=== PATIENT | male | born 1975 | race Caucasian/White ===

== ENCOUNTER 2024-09-13 13:06 | Outpatient (CLI) | payer MEDICARE, MEDICAID, SELFPAY ==
[2024-09-13 13:09] LABS: Abs Immature Grans 0.02 10^3/uL (0.0-0.06); Absolute Basophil Count 0.04 10^3/uL (0.0-0.2); Absolute Eosinophil Count 0.06 10^3/uL (0.0-0.7); Absolute Lymphocyte Count 0.87 10^3/uL (1.2-3.4); Absolute Monocyte Count 0.53 10^3/uL (0.1-0.8); Absolute Neutrophil Count 3.88 10^3/uL (1.2-6.7); Basophils % 0.7 %; Eosinophils % 1.1 %; HCT 41.1 % (40.0-50.0); HGB 13.5 g/dL (13.5-17.5); Immature Grans % 0.4 %; Lymphocytes % 16.1 %; MCH 30.8 pg (27.0-33.0); MCHC 32.8 % (32.0-36.0); MCV 94 fL (80-95); MPV 12.6 fL (8.0-11.0); Monocytes % 9.8 %; Neutrophils % 71.9 %; RBC 4.38 10^6/uL (4.36-5.78); RDW 15.6 % (11.8-14.1); RDW-SD 53.6 fL
--- OUTSIDE RECORDS SUMMARY | 2024-09-13 13:22 | XMS_ITS ---
Author Organization Unknown Address [address] [place] [address] [phone] Phone Care Team Providers Care Cupola Man Name Role Phone GEORGE GORDON Registered Nurse Unavailable LEIF Rhoades Attending Unavailable [facility] Unavailable ROD Tariq Primary Unavailable UNLISTED PROVIDER - REQUESTED Xhandoff Un available Results PTT PARTIAL THROMBOPLASTIN T LUIS ALBERTO* - Collect Date/Time: 06/14/2022 13:30 [facility] ID: [id number] [address] [place] [address], [phone] LOINC: 82391-0 Test Value Unit Reference Range Code Code System Flag PTT 25 seconds L=24 H=32 16656-8 LOINC PT PROTHROMBIN TIME* - Colle ct Date/Time: 06/14/2022 13:30 [facility] ID: [id number] [address] [place] [address], [address] LOINC: 5902-2 Test Value Unit Reference Range Code Code System Flag PROTIME 10.0 seconds L=9.3 H=11.4 5902-2 LOINC INR 1.00 L=2.00 H=3.00 65390-9 LOINC L TROPONIN HIGH SENSITIVITY* - Collect Date/Time: 06/14/2022 13:30 [facility] ID: [id number] [address] [place] [address], [address] LOINC: 40077-1 Test Value Unit Reference Range Code Code System Flag TROPONIN HS 7.7 pg/mL L=0.0 H=60.4 Specimen seq. Random COMPREHENSIVE METABOLIC PANE L (CMP) - Collect Date/Time: 06/14/2022 13:30 [facility] ID: [id number] [address] [place], [place], [address] LOINC: 88667-5 Test Value Unit Reference Range Code Code System Flag GLUCOSE 103 mg/dL L=70 H=116 2345-7 LOINC BUN 16 mg/dL L=6 H=25 3094-0 LOINC CREATININE 1.44 mg/dL L=0.67 H=1.17 2160-0 LOINC H SODIUM SERUM 141 mmol/L L=136 H=145 2951-2 LOINC POTASSIUM SERUM 4.0 mmol/L L=3.4 H=5.2 2823-3 LOINC CHLORIDE SERUM 106 mmol/L L=96 H=110 2075-0 LOINC CARBON DIOXIDE (CO2) 27 mmol/L L=22 H=34 2028-9 LOINC ANION GAP 7.9 mmol/L 18849-1 LOINC CALCIUM SERUM 8.5 mg/dL L=8.2 H=10.2 61338-6 LOINC BILIRUBIN TOTAL 0.9 mg/dL L=0.0 H=1.3 1975-2 LOINC ALK. PHOS. 94 U/L L=46 H=116 6768-6 LOINC SGOT (AST) 26 U/L L=15 H=37 1920-8 LOINC SGPT (ALT) 37 U/L L=12 H=78 1742-6 LOINC TOTAL PROTEIN 7.1 gm/dL L=6.0 H=8.0 2885-2 LOINC ALBUMIN 3.5 gm/dL L=3.4 H=5.0 1751-7 LOINC AGE 47 years eGFR (non-Afr.Amer.) 52 mL/min 25977-6 [facility] eGFR (Afr-Faroese) 63 mL/min 45714-1 [facility] CBC W/ DIFFERENTIAL* - Colle ct Date/Time: 06/14/2022 13:30 [facility] ID: [id number] [address] [place], [place], [address] LOINC: 14309-0 Test Value Unit Reference Range Code Code System Flag WBC 7.25 th/cmm L=5.00 H=10.00 6690-2 LOINC NEUT % 70.5 % L=40.0 H=80.0 LYMPH % 17.9 % L=10.0 H=50.0 MONO % 9.7 % L=2.0 H=12.0 77600-2 LOINC EOS % 1.0 % L=0.0 H=8.0 BASO % 0.6 % L=0.0 H=3.0 IG % 0.3 % L=0.0 H=1.1 2514-8 LOINC NRBC % 0.0 % L=0.0 H=0.0 25900-5 LOINC NEUT abs count 5.1 th/cmm L=1.6 H=8.4 751-8 LOINC LYMPH abs count 1.3 th/cmm L=1.5 H=4.0 731-0 LOINC L MONO abs count 0.7 th/cmm L=0.2 H=1.0 742-7 LOINC EOS abs count 0.1 th/cmm L=0.0 H=0.5 711-2 LOINC BASO abs count 0.0 th/cmm L=0.0 H=0.2 704-7 LOINC IG abs count 0.0 th/cmm L=0.0 H=0.1 28877-5 LOINC NRBC abs count 0.0 mil/cmm L=0.0 H=0.0 40160-0 LOINC RBC 5.62 mil/cmm L=4.30 H=6.20 789-8 LOINC HEMOGLOBIN 15.6 gm/dL L=13.0 H=17.0 718-7 LOINC HEMATOCRIT 47 % L=45 H=52 4544-3 LOINC MCV 83 fL L=82 H=92 787-2 LOINC MCH 27.8 pg L=27.0 H=31.0 785-6 LOINC MCHC 33.3 % L=32.0 H=36.0 786-4 LOINC RDW-SD 43.6 fL L=39.0 H=49.0 788-0 LOINC PLATELET COUNT 115 th/cmm L=150 H=450 777-[address] ANGIOGRAPHY CHEST - Compl eted: 06/14/2022 14:50 LOINC: Radiation optimization:?? Al l CT scans at this facility use at least one of these dose optimization techniques: automated exposure control; mA and/or kV adjustment per patient size (includes targeted exams where dose is matched to clinical indication); or iterative reconstruction. CHEST CT FOR PULMONARY EMBOLISM: Comparison is 30 September 2021. The pulmonary arteries are well opacified with IV contrast and no emboli are identified. The aorta is normal in diameter. There are no pleural or pericardial effusions or evidence of adenopathy. The heart size is normal. No coronary artery calcifications are seen. Lungs appear clear. The visualized portions of the upper abdomen are unremarkable. Degenerative changes are noted in the spine with flowing osteophytes seen in the lower thoracic region. IMPRESSION: No evidence of pulmonary emboli or other acute abnormality. Dictated by: CEO GEOFFREY FOFANA MD Transcribed by: PHIL 06/17/2216:13 [id number] Electronically Reviewed and Signed By: GEOFFREY FOFANA MD 07/05/22 13:05 Copy for: 185 HEALTH INFORMATION MGMT DISCHARGED XR CHEST 2V PA AND LATERAL - Completed: 06/14/2022 13:41 LOINC: PA AND LATERAL CHEST: Comparison is 30 September 2021. The exam is limited by poor pulmonary inflation and leads overlying the chest. The heart size is within normal limits. The lungs appear clear. IMPRESSION: No acute abnormality. Dictated by: CEO GEOFFREY FOFANA MD Transcribed by: PHIL 06/17/2215:57 [id number] Electronically Reviewed and Signed By: GEOFFREY FOFANA MD 07/05/22 12:57 Copy for: 185 HEALTH INFORMATION MGMT DISCHARGED Social History Type Status Start Date End Date Code Code Syst em Smoking History Former smoker 7085637 SNOMED CT Sex Male Vital Signs Vital Sign Value Unit Atwood Value Atwood Unit Date/Time Recent/Initial? Code Code System Body Mass Index 37.87 kg/m2 06/14/2022 13:24 Initial 71950 -5 LOINC Systolic Blood Pressure 130 mm[Hg] 06/14/2022 15:27 Most Recent 8480- 6 INC Diastolic Blood Pressure 96 mm[Hg] 06/14/2022 15:27 Most Recent 8462- 4 LOINC Systolic Blood Pressure 136 mm[Hg] 06/14/2022 13:24 Initial 8480- 6 LOINC Diastolic Blood Pressure 100 mm[Hg] 06/14/2022 13:24 Initial 8462- 4 LOINC Body Surface Area 2.70 m2 06/14/2022 13:24 Initial 3140- 1 LOINC Height 190.500 0 cm 75.00 in 06/14/2022 13:24 Initial 8302- 2 INC O2 Saturation 98 % 2021 15:27 Most Recent 89588 -5 INC O2 Saturation 100 % 2021 13:24 Initial 86360 -5 LOINC Pulse 86.0 /min 06/14/2022 15:27 Most Recent 8867- 4 INC Pulse 81.0 /min 06/14/2022 13:24 Initial 8867- 4 LOINC Respiration 13 /min 06/14/20 15:27 Most Recent 9279- 1 INC Respiration 18 /min 06/14/20 13:24 Initial 9279- 1 INC Temperature 36.7 Cristy 98.1 F 06/14/20 13:24 Initial 8310- 5 INC Weight 137.44 kg 303.00 lbs 06/14/2022 13:24 Initial 31885 -7 [facility] Medications Medication Start Date End Date Route Frequency Dose Code Code System Medication Instructions Home Meds Eliquis 5MG Oral Tablet 10/01/2021 Unknown ORAL TWICE A DAY 5 MILLIGRAMS 1547643 RxNorm TAKE 5 MILLIGRAMS ORAL TWICE A DAY Somatuline Depot 120MG/0.5ML Subcutaneou s Solution 10/01/2021 Unknown SUBCUTAN EOUS 1 unit(s) 244272 RxNorm INJECT 1 EACH SUBCUTANEOUS Vitamin B12 1000MCG/1ML Intramuscul ar Solution 10/01/2021 Unknown INTRAMUS CULAR MONTHLY 1 unit(s) RxNorm INJECT 1 EACH INTRAMUSCULAR MONTHLY everolimus 5MG Oral Tablet 10/01/2021 Unknown ORAL every other day 5 MILLIGRAMS 857133 RxNorm TAKE 5 MILLIGRAMS ORAL every other day Assessment You had the following problems:PULMONARY EMBOLISMCARCINOID TUMORAKI - ACUTE KIDNEY INJURY Hospital Discharge Instructions Should you have any questions prior to discharge, please contact a member of your healthcare team. If you have left the hospital and have any questions, please contact your primary care physician. Reason For Referral No Data Found Problems Problem Start Date Resolved Date Status Code Code System PULMONARY EMBOLISM active 70819912 S NOMED-CT CARCINOID TUMOR active 255377164 SNOM ED-CT RAISA - ACUTE KIDNEY INJURY active 1466 9001 SNOMED-CT Allergies and Adverse Reactions Allergy Substance Reaction Severity Start Date Concern Status Co de Code System No Known Drug Allergies Active 215434150 SNOMED-CT Plan of Treatment MRI ABDOMEN W W/O CONTRAST 05/17/2024 CT ABDOMEN/PELVIS W/ CONTRAST 4 CT ABDOMEN/PELVIS W/ CONTRAST 3 SYMPTOMS 09/07/2021 Encounters Encounter Diagnosis Start Date Code Code Sys tem Pleurodynia 06/14/2022 SNOMED-CT Personal Care Team Section Performer Name Performer Role Active Date Inactive Da te
--- OUTSIDE RECORDS SUMMARY | 2024-09-13 13:22 | XMS_ITS ---
Author Organization Unknown Address [address] [place] [address] [phone] Phone Care Team Providers Care Launching Pad Mechanic Name Role Phone ROD RAJ Tariq Attending Unavailable Social History Type Status Start Date End Date Code Code Syst em Smoking History Former smoker 1164832 SNOMED CT Sex Male Medications Medication Start Date End Date Route Frequency Dose Code Code System Medication Instructions Home Meds Eliquis 5MG Oral Tablet 10/01/2021 Unknown ORAL TWICE A DAY 5 MILLIGRAMS 9531225 RxNorm TAKE 5 MILLIGRAMS ORAL TWICE A DAY Somatuline Depot 120MG/0.5ML Subcutaneou s Solution 10/01/2021 Unknown SUBCUTAN EOUS 1 unit(s) 451665 RxNorm INJECT 1 EACH SUBCUTANEOUS Vitamin B12 1000MCG/1ML Intramuscul ar Solution 10/01/2021 Unknown INTRAMUS CULAR MONTHLY 1 unit(s) RxNorm INJECT 1 EACH INTRAMUSCULAR MONTHLY everolimus 5MG Oral Tablet 10/01/2021 Unknown ORAL every other day 5 MILLIGRAMS 365339 RxNorm TAKE 5 MILLIGRAMS ORAL every other [...] Status Code Code System PULMONARY EMBOLISM active 78129896 S NOMED-CT CARCINOID TUMOR active 802199999 SNOM ED-CT RAISA - ACUTE KIDNEY INJURY active 1464 2165 SNOMED-CT Allergies and Adverse Reactions Allergy Substance Reaction Severity Start Date Concern Status Co de Code System No Known Drug Allergies Active 561199903 SNOMED-CT Plan of Treatment MRI ABDOMEN W W/O CONTRAST 05/17/2024 CT ABDOMEN/PELVIS W/ CONTRAST 05/14/[address] ABDOMEN/PELVIS W/ CONTRAST 3 SYMPTOMS 09/07/2021 Encounters Encounter Diagnosis Start Date Code Code Sys tem Aftercare 02/04/2022 [id number] SNOMED-CT Personal Care Team Section Performer Name Performer Role Active Date Inactive Da te
--- OUTSIDE RECORDS SUMMARY | 2024-09-13 13:22 | XMS_ITS ---
Author Organization Unknown Address [address] [place] [address] [phone] Phone Care Team Providers Care Picture Enlarger Name Role Phone SHAQ Amezcua Attending Unavailable ROD Tariq Primary Unavailable Results CT ABD PELVIS W IV AND ORAL CONTRAST* - Completed: 04/14/2023 13:08 LOINC: [facility] [place], [place] [address] PACS HOT ROLLER REPORT Patient Name: MERY MARCH MRN: Sex: : Age: [id number] M [id number] Account: Accession: Admit: StayType: [id number] 04/14/2023 O/P Ordered: Order ID: Submitted: Ordering Provider: 04/14/2023 08:16 [id number] NLS [place] NEW Completed: Technologist: Resulted: 04/14/2023 13:08 TXC 04/14/2023 14:50 Study Description: CT ABD PELVIS W IV AND ORAL CONTRAST* Reason for Study: LIVER CANCER Technique: Imaging Protocol: Axial computed tomography images with coronal and sagittal reformatted images were created and reviewed. Contrast Material: Intravenous: 100 mL Omnipaque 350 Comparison: CT abdomen pelvis dated 03/15/2015 FINDINGS: The lung bases are clear. Liver: 96 mm area of hypoenhancement with surrounding rind of peripheral hyperenhancement in the right hepatic lobe. 30 mm enhancing lesion in segment 8/4 (series 3 image 25) becomes isointense on delayed images. 25 mm enhancing lesion in the anterior left hepatic lobe (series 3 image 40) becomes isointense on delayed images. 14 mm enhancing lesion in segment 5 (3 image 46) becomes isointense on delayed images. The gallbladder is surgically absent. The pancreas is unremarkable. Splenomegaly, 14.7 cm. The adrenals are unremarkable. The bilateral kidneys are unremarkable. The urinary bladder is unremarkable. Normal caliber aorta. The portal vein is patent. Adjacent enlarged mesenteric lymph nodes measuring 18 and 17 mm short axis (series 4 image 85). Additional prominent mesenteric and retroperitoneal lymph nodes are present. Increased attenuation of the central mesentery. No bowel obstruction or bowel wall thickening. Anastomotic sutures in the right lower quadrant. Evidence of prior ventral abdominal wall hernia repair. Small fat-containing left inguinal hernia. Trace free fluid in the pelvis. Small soft tissue attenuating nodules within the subcutaneous fat of the lower back. Multilevel degenerative changes of the spine. No aggressive osseous lesions. Chronic compression deformities of the L1 and L3 vertebral bodies. IMPRESSION: Multiple hepatic lesions and enlarged mesenteric lymph nodes. Correlation with outside imaging is recommended to assess change (only available comparison study was from 2014). Radiation Optimization: All CT scans at this facility use at least one of these dose optimization techniques: automated exposure control; mA and/or kV adjustment per patient size (includes targeted exams where dose is matched to clinical indication); or iterative reconstruction. Report Digitally Signed by Sheldon Love on 04/14/2023 02:50 PM EDT Social History Type Status Start Date End Date Code Code Syst em Smoking History Former smoker 1997238 SNOMED CT Sex Male Medications Medication Start Date End Date Route Frequency Dose Code Code System Medication Instructions Home Meds Eliquis 5MG Oral Tablet 10/01/2021 Unknown ORAL TWICE A DAY 5 MILLIGRAMS 0752387 RxNorm TAKE 5 MILLIGRAMS ORAL TWICE A DAY Somatuline Depot 120MG/0.5ML Subcutaneou s Solution 10/01/2021 Unknown SUBCUTAN EOUS 1 unit(s) 072303 RxNorm INJECT 1 EACH SUBCUTANEOUS Vitamin B12 1000MCG/1ML Intramuscul ar Solution 10/01/2021 Unknown INTRAMUS CULAR MONTHLY 1 unit(s) RxNorm INJECT 1 EACH INTRAMUSCULAR MONTHLY everolimus 5MG Oral Tablet 10/01/2021 Unknown ORAL every other day 5 MILLIGRAMS 962431 RxNorm TAKE 5 MILLIGRAMS ORAL every other [...] Status Code Code System PULMONARY EMBOLISM active 07346764 S NOMED-CT CARCINOID TUMOR active 622137170 SN ED-CT RAISA - ACUTE KIDNEY INJURY active 1466 9004 SNOMED-CT Allergies and Adverse Reactions Allergy Substance Reaction Severity Start Date Concern Status Co de Code System No Known Drug Allergies Active 434381215 SNOMED-CT Plan of Treatment MRI ABDOMEN W W/O CONTRAST 05/17/2024 CT ABDOMEN/PELVIS W/ CONTRAST 4 CT ABDOMEN/PELVIS W/ CONTRAST 3 SYMPTOMS 09/07/2021 Encounters Encounter Diagnosis Start Date Code Code 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
--- OUTSIDE RECORDS SUMMARY | 2024-09-13 13:22 | XMS_ITS ---
Author Organization Unknown Address [address] [place] [address] [phone] Phone Care Team Providers Care Deaf/Hard Of Hearing Specialist Name Role Phone ROD RAJ Tariq Attending Unavailable Social History Type Status Start Date End Date Code Code Syst em Smoking History Former smoker 4780717 SNOMED CT Sex Male Medications Medication Start Date End Date Route Frequency Dose Code Code System Medication Instructions Home Meds Eliquis 5MG Oral Tablet 10/01/2021 Unknown ORAL TWICE A DAY 5 MILLIGRAMS 9631479 RxNorm TAKE 5 MILLIGRAMS ORAL TWICE A DAY Somatuline Depot 120MG/0.5ML Subcutaneou s Solution 10/01/2021 Unknown SUBCUTAN EOUS 1 unit(s) 631006 RxNorm INJECT 1 EACH SUBCUTANEOUS Vitamin B12 1000MCG/1ML Intramuscul ar Solution 10/01/2021 Unknown INTRAMUS CULAR MONTHLY 1 unit(s) RxNorm INJECT 1 EACH INTRAMUSCULAR MONTHLY everolimus 5MG Oral Tablet 10/01/2021 Unknown ORAL every other day 5 MILLIGRAMS 780430 RxNorm TAKE 5 MILLIGRAMS ORAL every other [...] Status Code Code System PULMONARY EMBOLISM active 04794268 S NOMED-CT CARCINOID TUMOR active 647681894 SNOM ED-CT RAISA - ACUTE KIDNEY INJURY active 1466 3111 SNOMED-CT Allergies and Adverse Reactions Allergy Substance Reaction Severity Start Date Concern Status Co de Code System No Known Drug Allergies Active 236836700 SNOMED-CT Plan of Treatment MRI ABDOMEN W W/O CONTRAST 05/17/2024 CT ABDOMEN/PELVIS W/ CONTRAST 05/14/[address] ABDOMEN/PELVIS W/ CONTRAST 3 SYMPTOMS 09/07/2021 Encounters Encounter Diagnosis Start Date Code Code Sys tem Encounter for other specified aftercare 07/29/2022 SNOMED-CT Personal Care Team Section Performer Name Performer Role Active Date Inactive Da te
--- OUTSIDE RECORDS SUMMARY | 2024-09-13 13:22 | XMS_ITS ---
Author Organization Unknown Address [address] [place] [address] [phone] Phone Care Team Providers Care Marine Cargo Inspector Name Role Phone SHAQ Amezcua Attending Unavailable ROD Tariq Primary Unavailable Results CBC W/ DIFFERENTIAL* - Colle ct Date/Time: 08/10/2023 07:51 [facility] ID: [id number] [address] [place], [place], [address] LOINC: 25960-4 Test Value Unit Reference Range Code Code System Flag WBC 5.71 th/cmm L=5.00 H=10.00 6690-2 LOINC NEUT % 67.2 % L=40.0 H=80.0 LYMPH % 18.9 % L=10.0 H=50.0 MONO % 11.6 % L=2.0 H=12.0 45954-9 LOINC EOS % 1.2 % L=0.0 H=8.0 BASO % 0.7 % L=0.0 H=3.0 IG % 0.4 % L=0.0 H=1.1 2514-8 LOINC NRBC % 0.0 % L=0.0 H=0.0 65904-6 LOINC NEUT abs count 3.8 th/cmm L=1.6 H=8.4 751-8 LOINC LYMPH abs count 1.1 th/cmm L=1.5 H=4.0 731-0 LOINC L MONO abs count 0.7 th/cmm L=0.2 H=1.0 742-7 LOINC EOS abs count 0.1 th/cmm L=0.0 H=0.5 711-2 LOINC BASO abs count 0.0 th/cmm L=0.0 H=0.2 704-7 LOINC IG abs count 0.0 th/cmm L=0.0 H=0.1 33563-6 LOINC NRBC abs count 0.0 mil/cmm L=0.0 H=0.0 16695-9 LOINC RBC 5.13 mil/cmm L=4.30 H=6.20 789-8 LOINC HEMOGLOBIN 14.5 gm/dL L=13.0 H=17.0 718-7 LOINC HEMATOCRIT 46 % L=45 H=52 4544-3 LOINC MCV 89 fL L=82 H=92 787-2 LOINC MCH 28.3 pg L=27.0 H=31.0 785-6 LOINC MCHC 31.9 % L=32.0 H=36.0 786-4 LOINC L RDW-SD 53.1 fL L=39.0 H=49.0 788-0 LOINC H PLATELET COUNT 89 th/cmm L=150 H=450 777-3 LOINC L Vaccuol neutr 1+ Social History Type Status Start Date End Date Code Code Syst em Smoking History Former smoker 6540437 SNOMED CT Sex Male Medications Medication Start Date End Date Route Frequency Dose Code Code System Medication Instructions Home Meds Eliquis 5MG Oral Tablet 10/01/2021 Unknown ORAL TWICE A DAY 5 MILLIGRAMS 3821374 RxNorm TAKE 5 MILLIGRAMS ORAL TWICE A DAY Somatuline Depot 120MG/0.5ML Subcutaneou s Solution 10/01/2021 Unknown SUBCUTAN EOUS 1 unit(s) 687484 RxNorm INJECT 1 EACH SUBCUTANEOUS Vitamin B12 1000MCG/1ML Intramuscul ar Solution 10/01/2021 Unknown INTRAMUS CULAR MONTHLY 1 unit(s) RxNorm INJECT 1 EACH INTRAMUSCULAR MONTHLY everolimus 5MG Oral Tablet 10/01/2021 Unknown ORAL every other day 5 MILLIGRAMS 198214 RxNorm TAKE 5 MILLIGRAMS ORAL every other [...] Status Code Code System PULMONARY EMBOLISM active 65916700 S NOMED-CT CARCINOID TUMOR active 773189304 SNOM ED-CT RAISA - ACUTE KIDNEY INJURY active 4604 4416 SNOMED-CT Allergies and Adverse Reactions Allergy Substance Reaction Severity Start Date Concern Status Co de Code System No Known Drug Allergies Active 468258121 SNOMED-CT Plan of Treatment MRI ABDOMEN W W/O CONTRAST 05/17/2024 CT ABDOMEN/PELVIS W/ CONTRAST 4 CT ABDOMEN/PELVIS W/ CONTRAST 3 SYMPTOMS 09/07/2021 Encounters Encounter Diagnosis Start Date Code Code Sys tem Metastatic carcinoid tumor 08/10/2023 360065303 S NOMED-CT Personal Care Team Section Performer Name Performer Role Active Date Inactive Da te
--- OUTSIDE RECORDS SUMMARY | 2024-09-13 13:22 | XMS_ITS ---
Author Organization Unknown Address [address] [place] [address] [phone] Phone Care Team Providers Care Sanitation Worker Cleaning Equipment Name Role Phone ROD Tariq Attending Unavailable Social History Type Status Start Date End Date Code Code Syst em Smoking History Former smoker 5666748 SNOMED CT Sex Male Medications Medication Start Date End Date Route Frequency Dose Code Code System Medication Instructions Home Meds Eliquis 5MG Oral Tablet 10/01/2021 Unknown ORAL TWICE A DAY 5 MILLIGRAMS 3377624 RxNorm TAKE 5 MILLIGRAMS ORAL TWICE A DAY Somatuline Depot 120MG/0.5ML Subcutaneou s Solution 10/01/2021 Unknown SUBCUTAN EOUS 1 unit(s) 061537 RxNorm INJECT 1 EACH SUBCUTANEOUS Vitamin B12 1000MCG/1ML Intramuscul ar Solution 10/01/2021 Unknown INTRAMUS CULAR MONTHLY 1 unit(s) RxNorm INJECT 1 EACH INTRAMUSCULAR MONTHLY everolimus 5MG Oral Tablet 10/01/2021 Unknown ORAL every other day 5 MILLIGRAMS 787901 RxNorm TAKE 5 MILLIGRAMS ORAL every other [...] Status Code Code System PULMONARY EMBOLISM active 26580452 S NOMED-CT CARCINOID TUMOR active 739548551 SNOM ED-CT RAISA - ACUTE KIDNEY INJURY active 1064 8225 SNOMED-CT Allergies and Adverse Reactions Allergy Substance Reaction Severity Start Date Concern Status Co de Code System No Known Drug Allergies Active 439272529 SNOMED-CT Plan of Treatment MRI ABDOMEN W W/O CONTRAST 05/17/2024 CT ABDOMEN/PELVIS W/ CONTRAST 4 CT ABDOMEN/PELVIS W/ CONTRAST 3 SYMPTOMS 09/07/2021 Encounters Encounter Diagnosis Start Date Code Code Sys tem Encounter for other specified aftercare 05/06/2022 SNOMED-CT Personal Care Team Section Performer Name Performer Role Active Date Inactive Da te
--- OUTSIDE RECORDS SUMMARY | 2024-09-13 13:22 | XMS_ITS ---
Author Organization Unknown Address [address] [place] [address] [phone] Phone Care Team Providers Care Rn Employee Health Name Role Phone ROD RAJ Tariq Attending Unavailable Social History Type Status Start Date End Date Code Code Syst em Smoking History Former smoker 4656398 SNOMED CT Sex Male Medications Medication Start Date End Date Route Frequency Dose Code Code System Medication Instructions Home Meds Eliquis 5MG Oral Tablet 10/01/2021 Unknown ORAL TWICE A DAY 5 MILLIGRAMS 5361223 RxNorm TAKE 5 MILLIGRAMS ORAL TWICE A DAY Somatuline Depot 120MG/0.5ML Subcutaneou s Solution 10/01/2021 Unknown SUBCUTAN EOUS 1 unit(s) 563593 RxNorm INJECT 1 EACH SUBCUTANEOUS Vitamin B12 1000MCG/1ML Intramuscul ar Solution 10/01/2021 Unknown INTRAMUS CULAR MONTHLY 1 unit(s) RxNorm INJECT 1 EACH INTRAMUSCULAR MONTHLY everolimus 5MG Oral Tablet 10/01/2021 Unknown ORAL every other day 5 MILLIGRAMS 342018 RxNorm TAKE 5 MILLIGRAMS ORAL every other [...] Status Code Code System PULMONARY EMBOLISM active 28844098 S NOMED-CT CARCINOID TUMOR active 191993759 SNOM ED-CT RAISA - ACUTE KIDNEY INJURY active 1466 4280 SNOMED-CT Allergies and Adverse Reactions Allergy Substance Reaction Severity Start Date Concern Status Co de Code System No Known Drug Allergies Active 403252931 SNOMED-CT Plan of Treatment MRI ABDOMEN W W/O CONTRAST 05/17/2024 CT ABDOMEN/PELVIS W/ CONTRAST 05/14/[address] ABDOMEN/PELVIS W/ CONTRAST 3 SYMPTOMS 09/07/2021 Encounters Encounter Diagnosis Start Date Code Code Sys tem Encounter for other specified aftercare 04/28/2023 SNOMED-CT Personal Care Team Section Performer Name Performer Role Active Date Inactive Da te
--- OUTSIDE RECORDS SUMMARY | 2024-09-13 13:22 | XMS_ITS ---
Author Organization Unknown Address [address] [place] [phone] Phone Care Team Providers Care Informatics Manager Name Role Phone SHAQ Amezcua Attending Unavailable ROD Tariq Primary Unavailable Results COMPREHENSIVE METABOLIC PANE L (CMP) - Collect Date/Time: 10/05/2023 07:57 [facility] ID: [id number] [address] [place], [place], [address] LOINC: 43558-2 Test Value Unit Reference Range Code Code System Flag GLUCOSE 94 mg/dL L=70 H=116 2345-7 LOINC BUN 18 mg/dL L=6 H=25 3094-0 LOINC CREATININE 1.19 mg/dL L=0.67 H=1.17 2160-0 LOINC H SODIUM SERUM 139 mmol/L L=136 H=145 2951-2 LOINC POTASSIUM SERUM 3.5 mmol/L L=3.4 H=5.2 2823-3 LOINC CHLORIDE SERUM 104 mmol/L L=96 H=110 2075-0 LOINC CARBON DIOXIDE (CO2) 24 mmol/L L=22 H=34 2028-9 LOINC ANION GAP 10.9 mmol/L 83563-7 LOINC CALCIUM SERUM 9.0 mg/dL L=8.2 H=10.2 92730-4 LOINC BILIRUBIN TOTAL 1.9 mg/dL L=0.0 H=1.3 1975-2 LOINC H ALK. PHOS. 163 U/L L=46 H=116 6768-6 LOINC H SGOT (AST) 19 U/L L=15 H=37 1920-8 LOINC SGPT (ALT) 16 U/L L=12 H=78 1742-6 LOINC TOTAL PROTEIN 8.2 gm/dL L=6.0 H=8.0 2885-2 LOINC H ALBUMIN 3.7 gm/dL L=3.4 H=5.0 1751-7 LOINC AGE 48 years eGFR (non-Afr.Amer.) 65 mL/min 81988-3 LOINC eGFR (Afr-Canadian) 78 mL/min 39476-1 LOINC CBC W/ DIFFERENTIAL* - Colle ct Date/Time: 10/05/2023 07:57 [facility] ID: [id number] [address], [place], [address] LOINC: 97577-2 Test Value Unit Reference Range Code Code System Flag WBC 5.77 th/cmm L=5.00 H=10.00 6690-2 LOINC NEUT % 67.3 % L=40.0 H=80.0 LYMPH % 16.8 % L=10.0 H=50.0 MONO % 13.7 % L=2.0 H=12.0 07397-1 LOINC H EOS % 1.2 % L=0.0 H=8.0 BASO % 0.7 % L=0.0 H=3.0 IG % 0.3 % L=0.0 H=1.1 2514-8 LOINC NRBC % 0.0 % L=0.0 H=0.0 41496-1 LOINC NEUT abs count 3.9 th/cmm L=1.6 H=8.4 751-8 LOINC LYMPH abs count 1.0 th/cmm L=1.5 H=4.0 731-0 LOINC L MONO abs count 0.8 th/cmm L=0.2 H=1.0 742-7 LOINC EOS abs count 0.1 th/cmm L=0.0 H=0.5 711-2 LOINC BASO abs count 0.0 th/cmm L=0.0 H=0.2 704-7 LOINC IG abs count 0.0 th/cmm L=0.0 H=0.1 04847-7 LOINC NRBC abs count 0.0 mil/cmm L=0.0 H=0.0 40208-9 LOINC RBC 4.67 mil/cmm L=4.30 H=6.20 789-8 LOINC HEMOGLOBIN 14.2 gm/dL L=13.0 H=17.0 718-7 LOINC HEMATOCRIT 42 % L=45 H=52 4544-3 LOINC L MCV 90 fL L=82 H=92 787-2 LOINC MCH 30.4 pg L=27.0 H=31.0 785-6 LOINC MCHC 33.9 % L=32.0 H=36.0 786-4 LOINC RDW-SD 51.8 fL L=39.0 H=49.0 788-0 LOINC H PLATELET COUNT 79 th/cmm L=150 H=450 777-3 LOINC L Giant plts present Social History Type Status Start Date End Date Code Code Syst em Smoking History Former smoker [id number] SNOMED CT Sex Male Medications Medication Start Date End Date Route Frequency Dose Code Code System Medication Instructions Home Meds Eliquis 5MG Oral Tablet 10/01/2021 Unknown ORAL TWICE A DAY 5 MILLIGRAMS 1146195 RxNorm TAKE 5 MILLIGRAMS ORAL TWICE A DAY Somatuline Depot 120MG/0.5ML Subcutaneou s Solution 10/01/2021 Unknown SUBCUTAN EOUS 1 unit(s) 499632 RxNorm INJECT 1 EACH SUBCUTANEOUS Vitamin B12 1000MCG/1ML Intramuscul ar Solution 10/01/2021 Unknown INTRAMUS CULAR MONTHLY 1 unit(s) RxNorm INJECT 1 EACH INTRAMUSCULAR MONTHLY everolimus 5MG Oral Tablet 10/01/2021 Unknown ORAL every other day 5 MILLIGRAMS 185409 RxNorm TAKE 5 MILLIGRAMS ORAL every other [...] Status Code Code System PULMONARY EMBOLISM active 22698266 S NOMED-CT CARCINOID TUMOR active 200280933 SNOM ED-CT RAISA - ACUTE KIDNEY INJURY active 0994 9200 SNOMED-CT Allergies and Adverse Reactions Allergy Substance Reaction Severity Start Date Concern Status Co de Code System No Known Drug Allergies Active 986796359 SNOMED-CT Plan of Treatment MRI ABDOMEN W W/O CONTRAST 05/17/2024 CT ABDOMEN/PELVIS W/ CONTRAST 4 CT ABDOMEN/PELVIS W/ CONTRAST 3 SYMPTOMS 09/07/2021 Encounters Encounter Diagnosis Start Date Code Code Sys tem 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
--- OUTSIDE RECORDS SUMMARY | 2024-09-13 13:22 | XMS_ITS ---
Author Organization Unknown Address [address] [place] [address] [phone] Phone Care Team Providers Care Accounting Advisory Services Manager Name Role Phone ROD RAJ Tariq Attending Unavailable Social History Type Status Start Date End Date Code Code Syst em Smoking History Former smoker 2981182 SNOMED CT Sex Male Medications Medication Start Date End Date Route Frequency Dose Code Code System Medication Instructions Home Meds Eliquis 5MG Oral Tablet 10/01/2021 Unknown ORAL TWICE A DAY 5 MILLIGRAMS 4871910 RxNorm TAKE 5 MILLIGRAMS ORAL TWICE A DAY Somatuline Depot 120MG/0.5ML Subcutaneou s Solution 10/01/2021 Unknown SUBCUTAN EOUS 1 unit(s) 594021 RxNorm INJECT 1 EACH SUBCUTANEOUS Vitamin B12 1000MCG/1ML Intramuscul ar Solution 10/01/2021 Unknown INTRAMUS CULAR MONTHLY 1 unit(s) RxNorm INJECT 1 EACH INTRAMUSCULAR MONTHLY everolimus 5MG Oral Tablet 10/01/2021 Unknown ORAL every other day 5 MILLIGRAMS 658729 RxNorm TAKE 5 MILLIGRAMS ORAL every other [...] Status Code Code System PULMONARY EMBOLISM active 90223899 S NOMED-CT CARCINOID TUMOR active 561044930 SNOM ED-CT RAISA - ACUTE KIDNEY INJURY active 1464 7684 SNOMED-CT Allergies and Adverse Reactions Allergy Substance Reaction Severity Start Date Concern Status Co de Code System No Known Drug Allergies Active 905438688 SNOMED-CT Plan of Treatment MRI ABDOMEN W W/O CONTRAST 05/17/2024 CT ABDOMEN/PELVIS W/ CONTRAST 05/14/[address] ABDOMEN/PELVIS W/ CONTRAST 3 SYMPTOMS 09/07/2021 Encounters Encounter Diagnosis Start Date Code Code Sys tem Encounter for other specified aftercare 07/21/2023 SNOMED-CT Personal Care Team Section Performer Name Performer Role Active Date Inactive Da te
--- OUTSIDE RECORDS SUMMARY | 2024-09-13 13:22 | XMS_ITS ---
Author Organization Unknown Address [address] [place] [address] [phone] Phone Care Team Providers Care Rig Superintendent Name Role Phone ROD RAJ Tariq Attending Unavailable Social History Type Status Start Date End Date Code Code Syst em Smoking History Former smoker 0390307 SNOMED CT Sex Male Medications Medication Start Date End Date Route Frequency Dose Code Code System Medication Instructions Home Meds Eliquis 5MG Oral Tablet 10/01/2021 Unknown ORAL TWICE A DAY 5 MILLIGRAMS 8656425 RxNorm TAKE 5 MILLIGRAMS ORAL TWICE A DAY Somatuline Depot 120MG/0.5ML Subcutaneou s Solution 10/01/2021 Unknown SUBCUTAN EOUS 1 unit(s) 671653 RxNorm INJECT 1 EACH SUBCUTANEOUS Vitamin B12 1000MCG/1ML Intramuscul ar Solution 10/01/2021 Unknown INTRAMUS CULAR MONTHLY 1 unit(s) RxNorm INJECT 1 EACH INTRAMUSCULAR MONTHLY everolimus 5MG Oral Tablet 10/01/2021 Unknown ORAL every other day 5 MILLIGRAMS 103529 RxNorm TAKE 5 MILLIGRAMS ORAL every other [...] Status Code Code System PULMONARY EMBOLISM active 49582747 S NOMED-CT CARCINOID TUMOR active 215662066 SNOM ED-CT RAISA - ACUTE KIDNEY INJURY active 1466 2644 SNOMED-CT Allergies and Adverse Reactions Allergy Substance Reaction Severity Start Date Concern Status Co de Code System No Known Drug Allergies Active 574887738 SNOMED-CT Plan of Treatment MRI ABDOMEN W W/O CONTRAST 05/17/2024 CT ABDOMEN/PELVIS W/ CONTRAST 05/14/[address] ABDOMEN/PELVIS W/ CONTRAST 3 SYMPTOMS 09/07/2021 Encounters Encounter Diagnosis Start Date Code Code Sys tem Encounter for other specified aftercare 01/27/2023 SNOMED-CT Personal Care Team Section Performer Name Performer Role Active Date Inactive Da te
--- OUTSIDE RECORDS SUMMARY | 2024-09-13 13:22 | XMS_ITS ---
Author Organization Unknown Address [address] [place], [place] [phone] Phone Care Team Providers Care Field Marketing Director Name Role Phone ASHELY VELAZQUEZ Registered Nurse Unavailable ELI ARANDA Registered Nurse Unavailable ALETHA GUTIERREZ Registered Nurse Unavailable Unavailable Xwatchlist Unavailable MARI Sanchez Attending Unavailable ROSI Tariq ER Unavailable ROD Tariq Primary Unavailable TONI Zelaya Secondary Unavailable UNLISTED PROVIDER - REQUESTED Xhandoff Un available Results BASIC METABOLIC PANEL (BMP) - Collect Date/Time: 10/01/2021 06:35 [facility] ID: [id number] [address] [place] [address], [address] LOINC: 47623-0 Test Value Unit Reference Range Code Code System Flag GLUCOSE 117 mg/dL L=70 H=116 2345-7 LOINC H BUN 15 mg/dL L=6 H=25 3094-0 LOINC CREATININE 1.31 mg/dL L=0.67 H=1.17 2160-0 LOINC H SODIUM SERUM 143 mmol/L L=136 H=145 2951-2 LOINC POTASSIUM SERUM 3.5 mmol/L L=3.4 H=5.2 2823-3 LOINC CHLORIDE SERUM 108 mmol/L L=96 H=110 2075-0 LOINC CARBON DIOXIDE (CO2) 26 mmol/L L=22 H=34 2028-9 LOINC ANION GAP 9.4 mmol/L 79860-2 LOINC CALCIUM SERUM 8.3 mg/dL L=8.2 H=10.2 80060-3 LOINC AGE 46 years eGFR (non-Afr.Amer.) 58 mL/min 01985-9 INC eGFR (Afr-Gabonese) 71 mL/min 78564-9 LOINC RICHY COVID RHEONIX* - Jewell ect Date/Time: 09/30/2021 23:47 [facility] ID: [id number] [address] [place], [place], [id number] LOINC: 80004-7 Test Value Unit Reference Range Code Code System Flag SOURCE= Anterior nasal Tier- INPATIENT/ED SARS COV2 RNA: NEGATIVE REFERENCE RANGE: NEGAT 05384-0 LOINC COMPREHENSIVE METABOLIC PANE L (CMP) - Collect Date/Time: 09/30/2021 18:40 [facility] ID: [id number] [address] [place], [place], [address] LOINC: 22819-7 Test Value Unit Reference Range Code Code System Flag GLUCOSE 138 mg/dL L=70 H=116 2345-7 LOINC H BUN 16 mg/dL L=6 H=25 3094-0 LOINC CREATININE 1.38 mg/dL L=0.67 H=1.17 2160-0 LOINC H SODIUM SERUM 142 mmol/L L=136 H=145 2951-2 LOINC POTASSIUM SERUM 3.4 mmol/L L=3.4 H=5.2 2823-3 LOINC CHLORIDE SERUM 107 mmol/L L=96 H=110 2075-0 LOINC CARBON DIOXIDE (CO2) 28 mmol/L L=22 H=34 2028-9 LOINC ANION GAP 6.9 mmol/L 27286-5 LOINC CALCIUM SERUM 8.6 mg/dL L=8.2 H=10.2 20042-5 LOINC BILIRUBIN TOTAL 0.5 mg/dL L=0.0 H=1.3 1975-2 LOINC ALK. PHOS. 78 U/L L=46 H=116 6768-6 LOINC SGOT (AST) 22 U/L L=15 H=37 1920-8 LOINC SGPT (ALT) 31 U/L L=12 H=78 1742-6 LOINC TOTAL PROTEIN 7.3 gm/dL L=6.0 H=8.0 2885-2 LOINC ALBUMIN 3.6 gm/dL L=3.4 H=5.0 1751-7 LOINC AGE 46 years eGFR (non-Afr.Amer.) 55 mL/min 99349-2 LOINC eGFR (Afr-Gabonese) 67 mL/min 08408-0 LOINC D-DIMER - Collect Date/Time: 09/30/2021 18:40 [facility] ID: [id number] [address] [place] [address], [address] LOINC: 63945-3 Test Value Unit Reference Range Code Code System Flag D-DIMER 0.73 mg/L L=0.19 H=0.50 92450-3 LOINC H TROPONIN-I ADM.* - Collect D ate/Time: 09/30/2021 18:40 [facility] ID: [id number] [address] [place] [address], [address] LOINC: 47765-0 Test Value Unit Reference Range Code Code System Flag TROPONIN-I < 0.017 ng/mL L=0.000 H=0.060 32326-3 LOINC CBC W/ DIFFERENTIAL* - Colle ct Date/Time: 09/30/2021 18:40 [facility] ID: [id number] [address] [place] [address], [address] LOINC: 73899-8 Test Value Unit Reference Range Code Code System Flag WBC 6.46 th/cmm L=5.00 H=10.00 6690-2 LOINC NEUT % 63.9 % L=40.0 H=80.0 LYMPH % 23.1 % L=10.0 H=50.0 MONO % 9.1 % L=2.0 H=12.0 11535-6 LOINC EOS % 2.5 % L=0.0 H=8.0 BASO % 0.9 % L=0.0 H=3.0 IG % 0.5 % L=0.0 H=1.1 2514-8 LOINC NRBC % 0.0 % L=0.0 H=0.0 79708-7 LOINC NEUT abs count 4.1 th/cmm L=1.6 H=8.4 751-8 LOINC LYMPH abs count 1.5 th/cmm L=1.5 H=4.0 731-0 LOINC MONO abs count 0.6 th/cmm L=0.2 H=1.0 742-7 LOINC EOS abs count 0.2 th/cmm L=0.0 H=0.5 711-2 LOINC BASO abs count 0.1 th/cmm L=0.0 H=0.2 704-7 LOINC IG abs count 0.0 th/cmm L=0.0 H=0.1 58599-6 LOINC NRBC abs count 0.0 mil/cmm L=0.0 H=0.0 09453-9 LOINC RBC 5.11 mil/cmm L=4.30 H=6.20 789-8 LOINC HEMOGLOBIN 14.4 gm/dL L=13.0 H=17.0 718-7 LOINC HEMATOCRIT 43 % L=45 H=52 4544-3 LOINC L MCV 84 fL L=82 H=92 787-2 LOINC MCH 28.2 pg L=27.0 H=31.0 785-6 LOINC MCHC 33.4 % L=32.0 H=36.0 786-4 LOINC RDW-SD 45.3 fL L=39.0 H=49.0 788-0 LOINC PLATELET COUNT 126 th/cmm L=150 H=450 777-[address] ANGIOGRAPHY CHEST - Compl eted: 09/30/2021 22:59 LOINC: Radiation optimization: All CT scans at this facility use at least one of these dose optimization techniques: automated exposure control; mA and/or kV adjustment per patient size (includes targeted exams where dose is matched to clinical indication); or iterative reconstruction. CTA OF THE CHEST Comparison with prior examinations. The examination is limited due to poor bolus timing. There is poor opacification of the peripheral pulmonary arteries. No filling defects are seen in the main pulmonary artery or central pulmonary artery to suggest pulmonary embolic disease. Questionable defects are seen in the periphery of the right and left lower lobes and small pulmonary emboli cannot be excluded. The thoracic aorta is of normal caliber. No findings to suggest aortic dissection. Heart size is within normal limits. No pericardial effusion or coronary artery calcifications are present. The esophagus is grossly unremarkable. No significant mediastinal or hilar adenopathy is present. No axillary adenopathy is seen. No pleural effusion or pneumothorax is present. The tracheobronchial tree is unremarkable. No vocal consolidating infiltrates are seen. No evidence of right heart dysfunction. The soft tissues are unremarkable. Upper abdominal structures are grossly unremarkable. Degenerative changes are seen in the spine. IMPRESSION: 1. Examination is limited due to poor bolus timing. There is poor opacification of the peripheral pulmonary arteries. Question of defect seen in the peripheral pulmonary arteries and small pulmonary emboli cannot be excluded. A repeat CT angiography of the chest is recommended in this patient. 2. No acute pulmonary process. Dictated by: LEONORA LOPEZ MD Transcribed by: [facility] 10/01/2112:01 D 10/01/2021 08:37:41 [id number] Electronically Reviewed and Signed By: JONNY LOPEZ MD 10/01/21 19:03 Copy for: 185 HEALTH INFORMATION [facility] DISCHARGED XR EXAM CHEST 2 VIEWS - Comp leted: 09/30/2021 22:59 LOINC: CHEST X-RAY - FRONTAL AND LA TERAL VIEWS Comparison 08/04/15. Heart size is normal. The mediastinum is not widened. Lungs are clear with no infiltrates nor pleural effusions. No pneumothorax. No significant osseous findings. IMPRESSION: No acute pulmonary findings. Dictated by: JONNY LOPEZ MD Transcribed by: [facility] 10/01/21/12:08 D 10/01/2021 08:48:30 [id number] Electronically Reviewed and Signed By: JONNY LOPEZ MD 10/01/21 19:03 Copy for: 185 HEALTH INFORMATION [facility] DISCHARGED Social History Type Status Start Date End Date Code Code Syst em Smoking History Former smoker 0507334 SNOMED CT Sex Male Vital Signs Vital Sign Value Unit [place] Value [place] Unit Date/Time Recent/Initial? Code Code System Body Mass Index 39.12 kg/m2 10/01/2021 01:19 Most Recent 24687 -5 LOINC Body Mass Index 33.80 kg/m2 09/30/2021 18:50 Initial 74911 -5 LOINC Systolic Blood Pressure 153 mm[Hg] 10/01/2021 09:32 Most Recent 8480- 6 LOINC Diastolic Blood Pressure 97 mm[Hg] 10/01/2021 09:32 Most Recent 8462- 4 LOINC Systolic Blood Pressure 168 mm[Hg] 09/30/2021 18:50 Initial 8480- 6 LOINC Diastolic Blood Pressure 98 mm[Hg] 09/30/2021 18:50 Initial 8462- 4 LOINC Body Surface Area 2.69 m2 10/01/2021 01:19 Most Recent 3140- 1 LOINC Body Surface Area 2.75 m2 09/30/2021 18:50 Initial 3140- 1 LOINC Height 187.960 0 cm 74.00 in 10/01/2021 01:19 Most Recent 8302- 2 LOINC Height 200.660 0 cm 79.00 in 09/30/2021 18:50 Initial 8302- 2 LOINC O2 Saturation 99 % 2020 07:19 Most Recent 13197 -5 LOINC O2 Saturation 100 % 2020 18:50 Initial 99351 -5 LOINC Pulse 76.0 /min 10/01/2021 07:19 Most Recent 8867- 4 LOINC Pulse 78.0 /min 09/30/2021 18:50 Initial 8867- 4 LOINC Respiration 18 /min 10/01/20 07:19 Most Recent 9279- 1 LOINC Respiration 18 /min 09/30/20 21 18:50 Initial 9279- 1 LOINC Temperature 36.4 Cristy 97.5 F 10/01/20 21 07:19 Most Recent 8310- 5 LOINC Temperature 36.7 Cristy 98.1 F 09/30/20 21 18:50 Initial 8310- 5 LOINC Weight 138.21 kg 304.70 lbs 10/01/2021 01:19 Most Recent 05193 -7 LOINC Weight 136.08 kg 300.00 lbs 09/30/2021 18:50 Initial 52963 -7 LOINC Medications Medication Start Date End Date Route Frequency Dose Code Code System Medication Instructions Home Meds Eliquis 5MG Oral Tablet 10/01/2021 Unknown ORAL TWICE A DAY 5 MILLIGRAMS 7930384 RxNorm TAKE 5 MILLIGRAMS ORAL TWICE A DAY Somatuline Depot 120MG/0.5ML Subcutaneou s Solution 10/01/2021 Unknown SUBCUTAN EOUS 1 unit(s) 249246 RxNorm INJECT 1 EACH SUBCUTANEOUS Vitamin B12 1000MCG/1ML Intramuscul ar Solution 10/01/2021 Unknown INTRAMUS CULAR MONTHLY 1 unit(s) RxNorm INJECT 1 EACH INTRAMUSCULAR MONTHLY everolimus 5MG Oral Tablet 10/01/2021 Unknown ORAL every other day 5 MILLIGRAMS 946379 RxNorm TAKE 5 MILLIGRAMS ORAL every other [...] Status Code Code System PULMONARY EMBOLISM active 63539219 S NOMED-CT CARCINOID TUMOR active 666735722 SN ED-CT RAISA - ACUTE KIDNEY INJURY active 1466 9009 SNOMED-CT Allergies and Adverse Reactions Allergy Substance Reaction Severity Start Date Concern Status Co de Code System No Known Drug Allergies Active 988947752 SNOMED-CT Plan of Treatment MRI ABDOMEN W W/O CONTRAST 05/17/2024 CT ABDOMEN/PELVIS W/ CONTRAST 4 CT ABDOMEN/PELVIS W/ CONTRAST 3 SYMPTOMS 09/07/2021 Encounters Encounter Diagnosis Start Date Code Code Sys tem Other pulmonary embolism without acute cor pulmonale 1 12/01/2020 SNSanera-CT Personal Care Team Section Performer Name Performer Role Active Date Inactive Da te History and Physical Notes
--- OUTSIDE RECORDS SUMMARY | 2024-09-13 13:22 | XMS_ITS ---
Author Organization Unknown Address [address] [place] [phone] Phone Care Team Providers Care Pc Tech Name Role Phone SHAQ Amezcua Attending Unavailable ROD Tariq Primary Unavailable Results COMPREHENSIVE METABOLIC PANE L (CMP) - Collect Date/Time: 12/17/2021 08:52 [facility] ID: [id number] [address], [place], [address] LOINC: 97740-4 Test Value Unit Reference Range Code Code System Flag GLUCOSE 111 mg/dL L=70 H=116 2345-7 LOINC BUN 18 mg/dL L=6 H=25 3094-0 LOINC CREATININE 1.35 mg/dL L=0.67 H=1.17 2160-0 LOINC H SODIUM SERUM 142 mmol/L L=136 H=145 2951-2 LOINC POTASSIUM SERUM 3.8 mmol/L L=3.4 H=5.2 2823-3 LOINC CHLORIDE SERUM 108 mmol/L L=96 H=110 2075-0 LOINC CARBON DIOXIDE (CO2) 23 mmol/L L=22 H=34 2028-9 LOINC ANION GAP 11.4 mmol/L 20738-9 LOINC CALCIUM SERUM 8.6 mg/dL L=8.2 H=10.2 69765-7 LOINC BILIRUBIN TOTAL 0.8 mg/dL L=0.0 H=1.3 1975-2 LOINC ALK. PHOS. 76 U/L L=46 H=116 6768-6 LOINC SGOT (AST) 22 U/L L=15 H=37 1920-8 LOINC SGPT (ALT) 36 U/L L=12 H=78 1742-6 LOINC TOTAL PROTEIN 7.3 gm/dL L=6.0 H=8.0 2885-2 LOINC ALBUMIN 3.8 gm/dL L=3.4 H=5.0 1751-7 LOINC AGE 46 years eGFR (non-Afr.Amer.) 56 mL/min 58831-4 LOINC eGFR (Afr-Cameroonian) 68 mL/min 51295-3 LOINC CBC W/ DIFFERENTIAL* - Colle ct Date/Time: 12/17/2021 08:52 [facility] ID: [id number] [address], [place], [address] LOINC: 81663-0 Test Value Unit Reference Range Code Code System Flag WBC 6.89 th/cmm L=5.00 H=10.00 6690-2 LOINC NEUT % 70.3 % L=40.0 H=80.0 LYMPH % 19.7 % L=10.0 H=50.0 MONO % 7.1 % L=2.0 H=12.0 12426-2 LOINC EOS % 1.6 % L=0.0 H=8.0 BASO % 0.9 % L=0.0 H=3.0 IG % 0.4 % L=0.0 H=1.1 2514-8 LOINC NRBC % 0.0 % L=0.0 H=0.0 22544-0 LOINC NEUT abs count 4.8 th/cmm L=1.6 H=8.4 751-8 LOINC LYMPH abs count 1.4 th/cmm L=1.5 H=4.0 731-0 LOINC L MONO abs count 0.5 th/cmm L=0.2 H=1.0 742-7 LOINC EOS abs count 0.1 th/cmm L=0.0 H=0.5 711-2 LOINC BASO abs count 0.1 th/cmm L=0.0 H=0.2 704-7 LOINC IG abs count 0.0 th/cmm L=0.0 H=0.1 83047-1 LOINC NRBC abs count 0.0 mil/cmm L=0.0 H=0.0 88740-7 LOINC RBC 5.37 mil/cmm L=4.30 H=6.20 789-8 LOINC HEMOGLOBIN 15.5 gm/dL L=13.0 H=17.0 718-7 LOINC HEMATOCRIT 47 % L=45 H=52 4544-3 LOINC MCV 87 fL L=82 H=92 787-2 LOINC MCH 28.9 pg L=27.0 H=31.0 785-6 LOINC MCHC 33.3 % L=32.0 H=36.0 786-4 LOINC RDW-SD 49.5 fL L=39.0 H=49.0 788-0 LOINC H PLATELET COUNT 121 th/cmm L=150 H=450 777-3 LOINC L Social History Type Status Start Date End Date Code Code Syst em Smoking History Former smoker 1429026 SNOMED CT Sex Male Medications Medication Start Date End Date Route Frequency Dose Code Code System Medication Instructions Home Meds Eliquis 5MG Oral Tablet 10/01/2021 Unknown ORAL TWICE A DAY 5 MILLIGRAMS 4148952 RxNorm TAKE 5 MILLIGRAMS ORAL TWICE A DAY Somatuline Depot 120MG/0.5ML Subcutaneou s Solution 10/01/2021 Unknown SUBCUTAN EOUS 1 unit(s) 702714 RxNorm INJECT 1 EACH SUBCUTANEOUS Vitamin B12 1000MCG/1ML Intramuscul ar Solution 10/01/2021 Unknown INTRAMUS CULAR MONTHLY 1 unit(s) RxNorm INJECT 1 EACH INTRAMUSCULAR MONTHLY everolimus 5MG Oral Tablet 10/01/2021 Unknown ORAL every other day 5 MILLIGRAMS 409725 RxNorm TAKE 5 MILLIGRAMS ORAL every other [...] Status Code Code System PULMONARY EMBOLISM active 19632360 S NOMED-CT CARCINOID TUMOR active 448438721 SN ED-CT RAISA - ACUTE KIDNEY INJURY active 9805 8696 SNOMED-CT Allergies and Adverse Reactions Allergy Substance Reaction Severity Start Date Concern Status Co de Code System No Known Drug Allergies Active 820484126 SNOMED-CT Plan of Treatment MRI ABDOMEN W W/O CONTRAST 05/17/2024 CT ABDOMEN/PELVIS W/ CONTRAST 4 CT ABDOMEN/PELVIS W/ CONTRAST 3 SYMPTOMS 09/07/2021 Encounters Encounter Diagnosis Start Date Code Code Sys tem 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
--- OUTSIDE RECORDS SUMMARY | 2024-09-13 13:22 | XMS_ITS ---
Author Organization Unknown Address [address] [place] [phone] Phone Care Team Providers Care Cosmetic Dentist Name Role Phone ROD RAJ Tariq Attending Unavailable Social History Type Status Start Date End Date Code Code Syst em Smoking History Former smoker 0994772 SNOMED CT Sex Male Medications Medication Start Date End Date Route Frequency Dose Code Code System Medication Instructions Home Meds Eliquis 5MG Oral Tablet 10/01/2021 Unknown ORAL TWICE A DAY 5 MILLIGRAMS [id number] RxNorm TAKE 5 MILLIGRAMS ORAL TWICE A DAY Somatuline Depot 120MG/0.5ML Subcutaneou s Solution 10/01/2021 Unknown SUBCUTAN EOUS 1 unit(s) 765768 RxNorm INJECT 1 EACH SUBCUTANEOUS Vitamin B12 1000MCG/1ML Intramuscul ar Solution 10/01/2021 Unknown INTRAMUS CULAR MONTHLY 1 unit(s) RxNorm INJECT 1 EACH INTRAMUSCULAR MONTHLY everolimus 5MG Oral Tablet 10/01/2021 Unknown ORAL every other day 5 MILLIGRAMS [id number] RxNorm TAKE 5 MILLIGRAMS ORAL every other [...] Status Code Code System PULMONARY EMBOLISM active 08748288 S NOMED-CT CARCINOID TUMOR active [id number] SNOM ED-CT RAISA - ACUTE KIDNEY INJURY active 1468 1675 SNOMED-CT Allergies and Adverse Reactions Allergy Substance Reaction Severity Start Date Concern Status Co de Code System No Known Drug Allergies Active [id number] SNOMED-CT Plan of Treatment MRI ABDOMEN W W/O CONTRAST 05/17/2024 CT ABDOMEN/PELVIS W/ CONTRAST 05/14/[address] ABDOMEN/PELVIS W/ CONTRAST 3 SYMPTOMS 09/07/2021 Encounters Encounter Diagnosis Start Date Code Code Sys tem Encounter for other specified aftercare 10/28/2022 SNOMED-CT Personal Care Team Section Performer Name Performer Role Active Date Inactive Da te
--- OUTSIDE RECORDS SUMMARY | 2024-09-13 13:23 | XMS_ITS ---
Author Organization Unknown Address [address] [place] [address] [phone] Phone Care Team Providers Care Garde Manager Name Role Phone ROD RAJ Tariq Attending Unavailable Social History Type Status Start Date End Date Code Code Syst em Smoking History Former smoker 5534521 SNOMED CT Sex Male Medications Medication Start Date End Date Route Frequency Dose Code Code System Medication Instructions Home Meds Eliquis 5MG Oral Tablet 10/01/2021 Unknown ORAL TWICE A DAY 5 MILLIGRAMS 1588485 RxNorm TAKE 5 MILLIGRAMS ORAL TWICE A DAY Somatuline Depot 120MG/0.5ML Subcutaneou s Solution 10/01/2021 Unknown SUBCUTAN EOUS 1 unit(s) 272385 RxNorm INJECT 1 EACH SUBCUTANEOUS Vitamin B12 1000MCG/1ML Intramuscul ar Solution 10/01/2021 Unknown INTRAMUS CULAR MONTHLY 1 unit(s) RxNorm INJECT 1 EACH INTRAMUSCULAR MONTHLY everolimus 5MG Oral Tablet 10/01/2021 Unknown ORAL every other day 5 MILLIGRAMS 340530 RxNorm TAKE 5 MILLIGRAMS ORAL every other [...] Status Code Code System PULMONARY EMBOLISM active 27361691 S NOMED-CT CARCINOID TUMOR active 317134900 SNOM ED-CT RAISA - ACUTE KIDNEY INJURY active 1461 6285 SNOMED-CT Allergies and Adverse Reactions Allergy Substance Reaction Severity Start Date Concern Status Co de Code System No Known Drug Allergies Active 849450941 SNOMED-CT Plan of Treatment MRI ABDOMEN W W/O CONTRAST 05/17/2024 CT ABDOMEN/PELVIS W/ CONTRAST 05/14/[address] ABDOMEN/PELVIS W/ CONTRAST 3 SYMPTOMS 09/07/2021 Encounters Encounter Diagnosis Start Date Code Code Sys tem Encounter for other specified aftercare 10/20/2023 SNOMED-CT Personal Care Team Section Performer Name Performer Role Active Date Inactive Da te
--- OUTSIDE RECORDS SUMMARY | 2024-09-13 13:23 | XMS_ITS ---
Author Organization Unknown Address [address] [place] [address] [phone] Phone Care Team Providers Care Plasma Processing Technician Name Role Phone SHAQ Amezcua Attending Unavailable ROD Tariq Primary Unavailable Results CBC W/ DIFFERENTIAL* - Colle ct Date/Time: 11/30/2023 07:41 [facility] ID: [id number] [address] [place], [place], [address] LOINC: 45206-4 Test Value Unit Reference Range Code Code System Flag WBC 4.78 th/cmm L=5.00 H=10.00 6690-2 LOINC L NEUT % 67.1 % L=40.0 H=80.0 LYMPH % 16.7 % L=10.0 H=50.0 MONO % 14.4 % L=2.0 H=12.0 58068-5 LOINC H EOS % 0.8 % L=0.0 H=8.0 BASO % 0.6 % L=0.0 H=3.0 IG % 0.4 % L=0.0 H=1.1 2514-8 LOINC NRBC % 0.0 % L=0.0 H=0.0 19555-5 LOINC NEUT abs count 3.2 th/cmm L=1.6 H=8.4 751-8 LOINC LYMPH abs count 0.8 th/cmm L=1.5 H=4.0 731-0 LOINC L MONO abs count 0.7 th/cmm L=0.2 H=1.0 742-7 LOINC EOS abs count 0.0 th/cmm L=0.0 H=0.5 711-2 LOINC BASO abs count 0.0 th/cmm L=0.0 H=0.2 704-7 LOINC IG abs count 0.0 th/cmm L=0.0 H=0.1 40307-8 LOINC NRBC abs count 0.0 mil/cmm L=0.0 H=0.0 96021-2 LOINC RBC 4.66 mil/cmm L=4.30 H=6.20 789-8 LOINC HEMOGLOBIN 14.5 gm/dL L=13.0 H=17.0 718-7 LOINC HEMATOCRIT 43 % L=45 H=52 4544-3 LOINC L MCV 92 fL L=82 H=92 787-2 LOINC MCH 31.1 pg L=27.0 H=31.0 785-6 LOINC H MCHC 33.8 % L=32.0 H=36.0 786-4 LOINC RDW-SD 53.4 fL L=39.0 H=49.0 788-0 LOINC H PLATELET COUNT 71 th/cmm L=150 H=450 777-3 LOINC L Giant plts present COMPREHENSIVE METABOLIC PANE L (CMP) - Collect Date/Time: 11/30/2023 07:41 [facility] ID: [id number] 8 [place], [place], [address] LOINC: 09906-2 Test Value Unit Reference Range Code Code System Flag GLUCOSE 104 mg/dL L=70 H=116 2345-7 LOINC BUN 21 mg/dL L=6 H=25 3094-0 LOINC CREATININE 1.32 mg/dL L=0.67 H=1.17 2160-0 LOINC H SODIUM SERUM 139 mmol/L L=136 H=145 2951-2 LOINC POTASSIUM SERUM 3.7 mmol/L L=3.4 H=5.2 2823-3 LOINC CHLORIDE SERUM 102 mmol/L L=96 H=110 2075-0 LOINC CARBON DIOXIDE (CO2) 24 mmol/L L=22 H=34 2028-9 LOINC ANION GAP 13.4 mmol/L 83517-4 LOINC CALCIUM SERUM 9.2 mg/dL L=8.2 H=10.2 16767-7 LOINC BILIRUBIN TOTAL 1.9 mg/dL L=0.0 H=1.3 1975-2 LOINC H ALK. PHOS. 143 U/L L=46 H=116 6768-6 LOINC H SGOT (AST) 18 U/L L=15 H=37 1920-8 LOINC SGPT (ALT) 13 U/L L=12 H=78 1742-6 LOINC TOTAL PROTEIN 8.2 gm/dL L=6.0 H=8.0 2885-2 LOINC H ALBUMIN 3.7 gm/dL L=3.4 H=5.0 1751-7 LOINC AGE 48 years eGFR (non-Afr.Amer.) 57 mL/min 75205-4 LOINC eGFR (Afr-Comoran) 69 mL/min 44105-1 INC Social History Type Status Start Date End Date Code Code Syst em Smoking History Former smoker 1249446 SNOMED CT Sex Male Medications Medication Start Date End Date Route Frequency Dose Code Code System Medication Instructions Home Meds Eliquis 5MG Oral Tablet 10/01/2021 Unknown ORAL TWICE A DAY 5 MILLIGRAMS 2805514 RxNorm TAKE 5 MILLIGRAMS ORAL TWICE A DAY Somatuline Depot 120MG/0.5ML Subcutaneou s Solution 10/01/2021 Unknown SUBCUTAN EOUS 1 unit(s) 070332 RxNorm INJECT 1 EACH SUBCUTANEOUS Vitamin B12 1000MCG/1ML Intramuscul ar Solution 10/01/2021 Unknown INTRAMUS CULAR MONTHLY 1 unit(s) RxNorm INJECT 1 EACH INTRAMUSCULAR MONTHLY everolimus 5MG Oral Tablet 10/01/2021 Unknown ORAL every other day 5 MILLIGRAMS 808321 RxNorm TAKE 5 MILLIGRAMS ORAL every other [...] Status Code Code System PULMONARY EMBOLISM active 04902946 S NOMED-CT CARCINOID TUMOR active 655009529 SNOM ED-CT RAISA - ACUTE KIDNEY INJURY active 6675 9946 SNOMED-CT Allergies and Adverse Reactions Allergy Substance Reaction Severity Start Date Concern Status Co de Code System No Known Drug Allergies Active 254799060 SNOMED-CT Plan of Treatment MRI ABDOMEN W W/O CONTRAST 05/17/2024 CT ABDOMEN/PELVIS W/ CONTRAST 4 CT ABDOMEN/PELVIS W/ CONTRAST 3 SYMPTOMS 09/07/2021 Encounters Encounter Diagnosis Start Date Code Code Sys tem Metastatic carcinoid tumor 11/30/2023 462293751 S NOMED-CT Personal Care Team Section Performer Name Performer Role Active Date Inactive Da te
--- OUTSIDE RECORDS SUMMARY | 2024-09-13 13:23 | XMS_ITS ---
Author Organization Unknown Address [address] [place] [address] [phone] Phone Care Team Providers Care Automatic Spinning Lathe Operator Name Role Phone ROD RAJ Tariq Attending Unavailable Social History Type Status Start Date End Date Code Code Syst em Smoking History Former smoker 6310179 SNOMED CT Sex Male Medications Medication Start Date End Date Route Frequency Dose Code Code System Medication Instructions Home Meds Eliquis 5MG Oral Tablet 10/01/2021 Unknown ORAL TWICE A DAY 5 MILLIGRAMS 4390276 RxNorm TAKE 5 MILLIGRAMS ORAL TWICE A DAY Somatuline Depot 120MG/0.5ML Subcutaneou s Solution 10/01/2021 Unknown SUBCUTAN EOUS 1 unit(s) 459197 RxNorm INJECT 1 EACH SUBCUTANEOUS Vitamin B12 1000MCG/1ML Intramuscul ar Solution 10/01/2021 Unknown INTRAMUS CULAR MONTHLY 1 unit(s) RxNorm INJECT 1 EACH INTRAMUSCULAR MONTHLY everolimus 5MG Oral Tablet 10/01/2021 Unknown ORAL every other day 5 MILLIGRAMS 889771 RxNorm TAKE 5 MILLIGRAMS ORAL every other [...] Status Code Code System PULMONARY EMBOLISM active 03257247 S NOMED-CT CARCINOID TUMOR active 816926299 SNOM ED-CT RAISA - ACUTE KIDNEY INJURY active 1468 8888 SNOMED-CT Allergies and Adverse Reactions Allergy Substance Reaction Severity Start Date Concern Status Co de Code System No Known Drug Allergies Active 618179619 SNOMED-CT Plan of Treatment MRI ABDOMEN W W/O CONTRAST 05/17/2024 CT ABDOMEN/PELVIS W/ CONTRAST 05/14/[address] ABDOMEN/PELVIS W/ CONTRAST 3 SYMPTOMS 09/07/2021 Encounters Encounter Diagnosis Start Date Code Code Sys tem Encounter for other specified aftercare 01/25/2024 SNOMED-CT Personal Care Team Section Performer Name Performer Role Active Date Inactive Da te
--- OUTSIDE RECORDS SUMMARY | 2024-09-13 13:24 | XMS_ITS ---
Author Organization Unknown Address [address] [place] [address] [phone] Phone Care Team Providers Care Belt Notcher Name Role Phone SHAQ Amezcua Attending Unavailable ROD Tariq Primary Unavailable Results CT ABD PELVIS W IV AND ORAL CONTRAST* - Completed: 03/13/2024 14:39 LOINC: [facility] [place], [place] [address] [facility] PACS PHYSICIAN PRACTICE MARKET MANAGER REPORT Patient Name: MERY MACRH MRN: Sex: : Age: [id number] O 1975 48 Account: Accession: Admit: StayType: [id number] 03/13/2024 O Ordered: Order ID: Submitted: Ordering Provider: 03/13/2024 13:00 [id number] KT [place] NEW Completed: Technologist: Resulted: 03/13/2024 14:26 KMD 03/13/2024 18:10 FINAL REPORT EXAM: CT ABD PELVIS W IV AND ORAL CONTRAST* CLINICAL HISTORY: Reason for Abdomen: LIVER TUMOR TECHNIQUE: Imaging Protocol: Axial computed tomography images with coronal and sagittal reformatted images were created and reviewed CONTRAST MATERIAL: Intravenous: Omnipaque. Contrast volume:98 mL Oral: Yes COMPARISON: CT ABD PELVIS W IV AND ORAL CONTRAST* from 04/14/2023 FINDINGS: ABDOMEN: Lung Bases: Normal where visualized. Liver: There has been slight interval increase in size of the mass in the right lobe of the liver which measures 12 centimeters x 10 centimeters. This compares to 10 centimeters x 8 centimeters on the prior examination. The subcapsular hypodensity in the medial aspect of the right lobe of the liver has also shown interval increase in size. This mass now measures 9.3 x 3.9 centimeters compared to 4.8 x 1.8 centimeters. Portal, Superior Mesenteric, and Splenic Veins: Unremarkable. Gallbladder and Biliary Tract: The gallbladder is absent. There is no biliary ductal dilatation. Pancreas: Normal density, no abnormal calcifications or inflammatory process. Spleen: The spleen measures 14.8 centimeters long. Adrenals: No masses seen. Kidneys: Normal size, contour and axis. No radiodense stones or obstructive uropathy. There is a 2 centimeter simple cyst in the right kidney. No follow-up is recommended. Abdominal Aorta: Abdominal portion non-dilated. Atherosclerotic calcification is present. Bowel: No obstruction or bowel wall thickening. No evidence of appendicitis. The stomach is incompletely distended limiting evaluation. Peritoneal Cavity: No ascites, collection or mesenteric inflammatory response. No free air. Lymph Nodes: There again seen enlarged mesenteric lymph nodes. The largest measures 2.1 x 1.8 centimeters. This compares to 3.2 x 2 centimeters. Bones: Within normal limits for the patient's age. There is a left convex lumbar scoliosis. Soft Tissues: There is a fat containing left inguinal hernia. There again seen multiple soft tissue nodules in the subcutaneous tissues of the back. PELVIS: Bladder: Symmetric distention, no gross wall thickening. Reproductive Organs: The prostate gland is mildly enlarged. Lymph Nodes: Within normal limits. Bones: Within normal limits for the patient's age. IMPRESSION: Interval increase in size of hepatic lesions as described above. The largest lesion now measures 12 x 10 centimeters. This compares to 10 x 8 centimeters on the prior examination. RADIATION DOSE DELIVERED: !Error Total DLP DATA REPOSITORY: All CT scans at this facility are submitted to the National Radiology Data Registry (NRDR) Dose Index Registry (DIR) with the [employer] (ACR). RADIATION OPTIMIZATION: All CT scans at this facility use at least one of these dose optimization techniques: automated exposure control; mA and/or kV adjustment per patient size (includes targeted exams where dose is matched to clinical indication); or iterative reconstruction. Electronically signed by: Colin Bhatti Dictated: 03/13/2024 18:10 Social History Type Status Start Date End Date Code Code Syst em Smoking History Former smoker 4807691 SNOMED CT Sex Male Medications Medication Start Date End Date Route Frequency Dose Code Code System Medication Instructions Home Meds Eliquis 5MG Oral Tablet 10/01/2021 Unknown ORAL TWICE A DAY 5 MILLIGRAMS 5858785 RxNorm TAKE 5 MILLIGRAMS ORAL TWICE A DAY Somatuline Depot 120MG/0.5ML Subcutaneou s Solution 10/01/2021 Unknown SUBCUTAN EOUS 1 unit(s) 678819 RxNorm INJECT 1 EACH SUBCUTANEOUS Vitamin B12 1000MCG/1ML Intramuscul ar Solution 10/01/2021 Unknown INTRAMUS CULAR MONTHLY 1 unit(s) RxNorm INJECT 1 EACH INTRAMUSCULAR MONTHLY everolimus 5MG Oral Tablet 10/01/2021 Unknown ORAL every other day 5 MILLIGRAMS 688527 RxNorm TAKE 5 MILLIGRAMS ORAL every other [...] Status Code Code System PULMONARY EMBOLISM active 01480203 S NOMED-CT CARCINOID TUMOR active 136014611 SN ED-CT RAISA - ACUTE KIDNEY INJURY active 0345 0101 SNOMED-CT Allergies and Adverse Reactions Allergy Substance Reaction Severity Start Date Concern Status Co de Code System No Known Drug Allergies Active 090609500 SNOMED-CT Plan of Treatment MRI ABDOMEN W W/O CONTRAST 05/17/2024 CT ABDOMEN/PELVIS W/ CONTRAST 4 CT ABDOMEN/PELVIS W/ CONTRAST 3 SYMPTOMS 09/07/2021 Encounters Encounter Diagnosis Start Date Code Code Sys tem Metastatic carcinoid tumor 03/13/2024 090510662 S NOMED-CT Personal Care Team Section Performer Name Performer Role Active Date Inactive Da te
--- OUTSIDE RECORDS SUMMARY | 2024-09-13 13:24 | XMS_ITS ---
Author Organization Unknown Address [address] [place] [address] [phone] Phone Care Team Providers Care Customer Service Teller Name Role Phone SHAQ Amezcua Attending Unavailable ROD Tariq Primary Unavailable Results CHROMOGRANIN A - Collect Karan e/Time: 03/12/2024 09:23 [facility] ID: [id number] [address] [place] [address], [phone] LOINC: 9811-1 Test Value Unit Reference Range Code Code System Flag Chromogranin A, S 1182 <93 9811-1 LOINC H COMPREHENSIVE METABOLIC PANE L (CMP) - Collect Date/Time: 03/12/2024 09:23 [facility] ID: [id number] [address] [place] [address], [address] LOINC: 10548-1 Test Value Unit Reference Range Code Code System Flag GLUCOSE 99 mg/dL L=70 H=116 2345-7 LOINC BUN 14 mg/dL L=6 H=25 3094-0 LOINC CREATININE 1.41 mg/dL L=0.67 H=1.17 2160-0 LOINC H SODIUM SERUM 138 mmol/L L=136 H=145 2951-2 LOINC POTASSIUM SERUM 4.0 mmol/L L=3.4 H=5.2 2823-3 LOINC CHLORIDE SERUM 105 mmol/L L=96 H=110 2075-0 LOINC CARBON DIOXIDE (CO2) 25 mmol/L L=22 H=34 2028-9 LOINC ANION GAP 8.0 mmol/L 94507-5 LOINC CALCIUM SERUM 8.8 mg/dL L=8.2 H=10.2 33935-6 LOINC BILIRUBIN TOTAL 1.7 mg/dL L=0.0 H=1.3 1975-2 LOINC H ALK. PHOS. 155 U/L L=46 H=116 6768-6 LOINC H SGOT (AST) 19 U/L L=15 H=37 1920-8 LOINC SGPT (ALT) 17 U/L L=12 H=78 1742-6 LOINC TOTAL PROTEIN 8.2 gm/dL L=6.0 H=8.0 2885-2 LOINC H ALBUMIN 4.1 gm/dL L=3.4 H=5.0 1751-7 LOINC AGE 48 years eGFR (non-Afr.Amer.) 53 mL/min 19327-8 LOINC eGFR (Afr-Swiss) 64 mL/min 83400-7 LOINC CBC W/ DIFFERENTIAL* - Colle ct Date/Time: 03/12/2024 09:23 [facility] ID: [id number] 8 [place], [place], [address] LOINC: 27329-6 Test Value Unit Reference Range Code Code System Flag WBC 5.13 th/cmm L=5.00 H=10.00 6690-2 LOINC NEUT % 74.0 % L=40.0 H=80.0 LYMPH % 15.2 % L=10.0 H=50.0 MONO % 9.0 % L=2.0 H=12.0 87535-1 LOINC EOS % 0.6 % L=0.0 H=8.0 BASO % 0.8 % L=0.0 H=3.0 IG % 0.4 % L=0.0 H=1.1 2514-8 LOINC NRBC % 0.0 % L=0.0 H=0.0 40458-8 LOINC NEUT abs count 3.8 th/cmm L=1.6 H=8.4 751-8 LOINC LYMPH abs count 0.8 th/cmm L=1.5 H=4.0 731-0 LOINC L MONO abs count 0.5 th/cmm L=0.2 H=1.0 742-7 LOINC EOS abs count 0.0 th/cmm L=0.0 H=0.5 711-2 LOINC BASO abs count 0.0 th/cmm L=0.0 H=0.2 704-7 LOINC IG abs count 0.0 th/cmm L=0.0 H=0.1 24853-1 LOINC NRBC abs count 0.0 mil/cmm L=0.0 H=0.0 02275-8 LOINC RBC 4.47 mil/cmm L=4.30 H=6.20 789-8 LOINC HEMOGLOBIN 14.1 gm/dL L=13.0 H=17.0 718-7 LOINC HEMATOCRIT 43 % L=45 H=52 4544-3 LOINC L MCV 96 fL L=82 H=92 787-2 LOINC H MCH 31.5 pg L=27.0 H=31.0 785-6 LOINC H MCHC 33.0 % L=32.0 H=36.0 786-4 LOINC RDW-SD 53.4 fL L=39.0 H=49.0 788-0 LOINC H PLATELET COUNT 80 th/cmm L=150 H=450 777-3 LOINC L Social History Type Status Start Date End Date Code Code Syst em Smoking History Former smoker 2384187 SNOMED CT Sex Male Medications Medication Start Date End Date Route Frequency Dose Code Code System Medication Instructions Home Meds Eliquis 5MG Oral Tablet 10/01/2021 Unknown ORAL TWICE A DAY 5 MILLIGRAMS 3799104 RxNorm TAKE 5 MILLIGRAMS ORAL TWICE A DAY Somatuline Depot 120MG/0.5ML Subcutaneou s Solution 10/01/2021 Unknown SUBCUTAN EOUS 1 unit(s) 482157 RxNorm INJECT 1 EACH SUBCUTANEOUS Vitamin B12 1000MCG/1ML Intramuscul ar Solution 10/01/2021 Unknown INTRAMUS CULAR MONTHLY 1 unit(s) RxNorm INJECT 1 EACH INTRAMUSCULAR MONTHLY everolimus 5MG Oral Tablet 10/01/2021 Unknown ORAL every other day 5 MILLIGRAMS 144757 RxNorm TAKE 5 MILLIGRAMS ORAL every other [...] Status Code Code System PULMONARY EMBOLISM active 90682517 S NOMED-CT CARCINOID TUMOR active 317361723 SNOM ED-CT RAISA - ACUTE KIDNEY INJURY active 1466 9004 SNOMED-CT Allergies and Adverse Reactions Allergy Substance Reaction Severity Start Date Concern Status Co de Code System No Known Drug Allergies Active 192988330 SNOMED-CT Plan of Treatment MRI ABDOMEN W W/O CONTRAST 05/17/2024 CT ABDOMEN/PELVIS W/ CONTRAST 4 CT ABDOMEN/PELVIS W/ CONTRAST 3 SYMPTOMS 09/07/2021 Encounters Encounter Diagnosis Start Date Code Code Sys tem Thrombocytopenic disorder 03/12/2024 349864643 SN OMED-CT Personal Care Team Section Performer Name Performer Role Active Date Inactive Da te
--- OUTSIDE RECORDS SUMMARY | 2024-09-13 13:24 | XMS_ITS ---
Author Organization Unknown Address [address] [place] [address] [phone] Phone Care Team Providers Care Investment Analyst Name Role Phone ROD RAJ Tariq Attending Unavailable Social History Type Status Start Date End Date Code Code Syst em Smoking History Former smoker 2116423 SNOMED CT Sex Male Medications Medication Start Date End Date Route Frequency Dose Code Code System Medication Instructions Home Meds Eliquis 5MG Oral Tablet 10/01/2021 Unknown ORAL TWICE A DAY 5 MILLIGRAMS 7549941 RxNorm TAKE 5 MILLIGRAMS ORAL TWICE A DAY Somatuline Depot 120MG/0.5ML Subcutaneou s Solution 10/01/2021 Unknown SUBCUTAN EOUS 1 unit(s) 863274 RxNorm INJECT 1 EACH SUBCUTANEOUS Vitamin B12 1000MCG/1ML Intramuscul ar Solution 10/01/2021 Unknown INTRAMUS CULAR MONTHLY 1 unit(s) RxNorm INJECT 1 EACH INTRAMUSCULAR MONTHLY everolimus 5MG Oral Tablet 10/01/2021 Unknown ORAL every other day 5 MILLIGRAMS 239237 RxNorm TAKE 5 MILLIGRAMS ORAL every other [...] Status Code Code System PULMONARY EMBOLISM active 31899751 S NOMED-CT CARCINOID TUMOR active 957196505 SNOM ED-CT RAISA - ACUTE KIDNEY INJURY active 1464 1550 SNOMED-CT Allergies and Adverse Reactions Allergy Substance Reaction Severity Start Date Concern Status Co de Code System No Known Drug Allergies Active 409721434 SNOMED-CT Plan of Treatment MRI ABDOMEN W W/O CONTRAST 05/17/2024 CT ABDOMEN/PELVIS W/ CONTRAST 05/14/[address] ABDOMEN/PELVIS W/ CONTRAST 3 SYMPTOMS 09/07/2021 Encounters Encounter Diagnosis Start Date Code Code Sys tem Encounter for other specified aftercare 04/26/2024 SNOMED-CT Personal Care Team Section Performer Name Performer Role Active Date Inactive Da te
--- OUTSIDE RECORDS SUMMARY | 2024-09-13 13:25 | XMS_ITS ---
Author Organization Unknown Address [address] [place] [address] [phone] Phone Care Team Providers Care Predator Control Trapper Name Role Phone SHAQ Amezcua Attending Unavailable ROD Tariq Primary Unavailable Results MR ABDOMEN WWO CONTRAST - Co mpleted: 05/17/2024 10:29 LOINC: [facility] [place], [place] [address] RADIOLOGY PACS CAREER DEVELOPMENT COORDINATOR REPORT Patient Name: MERY MARCH MRN: Sex: : Age: [id number] M 1975 49 Account: Accession: Admit: StayType: [id number] 05/17/2024 O Ordered: Order ID: Submitted: Ordering Provider: 05/17/2024 09:39 [id number] KT [place] NEW Completed: Technologist: Resulted: 05/17/2024 09:41 HTP 05/18/2024 12:14 FINAL REPORT EXAMINATION: MR ABDOMEN WWO CONTRAST CLINICAL HISTORY: Reason MRI Abd: LIVER CANCER Add'l Info: TECHNIQUE: MRI of the abdomen prior to and following the intravenous administration of 20ml Dotarem. COMPARISON: MR ABDOMEN WWO CONTRAST 03/13/2014 Dotatate PET/CT 12/27/2023 FINDINGS: Lower chest: No basal pleural effusions. Liver: Borderline enlarged, 20 cm in craniocaudal dimension. There are 5-10 arterial hyperenhancing masses in the liver mostly corresponding with the Dotatate avid foci on the comparison examination. The largest is in the inferior right lobe, 12 cm maximum dimension. This dominant mass is mostly nonenhancing T1 hyperintense hemorrhage with a thick enhancing rim at the superior, anterior and medial aspects. The second largest metastasis is in the anterior dome, 3.6 cm with a small T1 hyperintense nonenhancing hemorrhagic component. There is a T2 hyperintense nonenhancing subcapsular fluid collection along the inferior right lobe that is 8.6 cm maximum dimension, possible seroma or biloma. Bile ducts: Nondilated. Gallbladder: Cholecystectomy Pancreas: Normal. Spleen: Normal. Adrenals: Normal. Kidneys: Small simple cysts up to 1.8 cm. Otherwise normal. Vasculature: No abdominal aortic aneurysm. Patent portal veins. Lymph nodes: No enlarged lymph nodes. Bowel: Nondilated, no inflammatory changes. Peritoneum and mesentery: No ascites or other loculated fluid collection. Marrow Signal: No suspicious marrow lesions. IMPRESSION: 1. Several enhancing liver lesions, largest with hemorrhagic components. All are enhancing viable tumor. No increase seen from prior PET/CT. 2. Subcapsular right hepatic lobe fluid collection appears sterile and benign. Thank you for letting us participate in the care of this patient. If you are a health care provider and have any questions regarding this report, please contact the number below. For patients who have questions please contact the health career technical education instructor that requested your imaging first. Social History Type Status Start Date End Date Code Code Syst em Smoking History Former smoker 7749508 SNOMED CT Sex Male Medications Medication Start Date End Date Route Frequency Dose Code Code System Medication Instructions Home Meds Eliquis 5MG Oral Tablet 10/01/2021 Unknown ORAL TWICE A DAY 5 MILLIGRAMS 8767509 RxNorm TAKE 5 MILLIGRAMS ORAL TWICE A DAY Somatuline Depot 120MG/0.5ML Subcutaneou s Solution 10/01/2021 Unknown SUBCUTAN EOUS 1 unit(s) 436698 RxNorm INJECT 1 EACH SUBCUTANEOUS Vitamin B12 1000MCG/1ML Intramuscul ar Solution 10/01/2021 Unknown INTRAMUS CULAR MONTHLY 1 unit(s) RxNorm INJECT 1 EACH INTRAMUSCULAR MONTHLY everolimus 5MG Oral Tablet 10/01/2021 Unknown ORAL every other day 5 MILLIGRAMS 470635 RxNorm TAKE 5 MILLIGRAMS ORAL every other [...] Status Code Code System PULMONARY EMBOLISM active 52987635 S NOMED-CT CARCINOID TUMOR active 120291624 SNOM ED-CT RAISA - ACUTE KIDNEY INJURY active 7716 4578 SNOMED-CT Allergies and Adverse Reactions Allergy Substance Reaction Severity Start Date Concern Status Co de Code System No Known Drug Allergies Active 716974420 SNOMED-CT Plan of Treatment MRI ABDOMEN W W/O CONTRAST 05/17/2024 CT ABDOMEN/PELVIS W/ CONTRAST 4 CT ABDOMEN/PELVIS W/ CONTRAST 3 SYMPTOMS 09/07/2021 Encounters Encounter Diagnosis Start Date Code Code Sys tem 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
--- OUTSIDE RECORDS SUMMARY | 2024-09-13 13:25 | XMS_ITS ---
Author Organization [facility] Address [address] [place], [place] [phone] Care Team Providers Care Hedis Nurse Name Role Phone RAJ VELASCO Primary Care Provider [phone] REASON FOR VISIT TCM Encounters Encounter Location Date Provider Diagnosis [facility] [address] [place], [place] [phone] 08/09/2024 RAJ VELASCO Plan Of Treatment Next Appt Details Provider Name:ARJ TIJERINA, 04/29/2025 08:45:00 AM, [address] [place], [place], [phone], Progress Notes * Tunde OTERODOB:[birth year] (49 yo M)Acc No.[id number]:08/09/2024 Patient:?JOAQUIMTunde Sanchez :1975???Age:49 Y???Sex:Male Address:[address] [place] [address] * true * Date:? Generated for Konradi usha/Pato/eTransmitting on:?09/13/2024 01:25 PM EST
--- OUTSIDE RECORDS SUMMARY | 2024-09-13 13:25 | XMS_ITS ---
Author Organization Unknown Address [address] [place] [phone] Phone Care Team Providers Care Office Clerk Name Role Phone ROD RAJ Tariq Attending Unavailable Social History Type Status Start Date End Date Code Code Syst em Smoking History Former smoker 1734283 SNOMED CT Sex Male Medications Medication Start Date End Date Route Frequency Dose Code Code System Medication Instructions Home Meds Eliquis 5MG Oral Tablet 10/01/2021 Unknown ORAL TWICE A DAY 5 MILLIGRAMS 6966408 RxNorm TAKE 5 MILLIGRAMS ORAL TWICE A DAY Somatuline Depot 120MG/0.5ML Subcutaneou s Solution 10/01/2021 Unknown SUBCUTAN EOUS 1 unit(s) 344923 RxNorm INJECT 1 EACH SUBCUTANEOUS Vitamin B12 1000MCG/1ML Intramuscul ar Solution 10/01/2021 Unknown INTRAMUS CULAR MONTHLY 1 unit(s) RxNorm INJECT 1 EACH INTRAMUSCULAR MONTHLY everolimus 5MG Oral Tablet 10/01/2021 Unknown ORAL every other day 5 MILLIGRAMS 318575 RxNorm TAKE 5 MILLIGRAMS ORAL every other [...] Status Code Code System PULMONARY EMBOLISM active 73214828 S NOMED-CT CARCINOID TUMOR active 094784989 SNOM ED-CT RAISA - ACUTE KIDNEY INJURY active 1463 1679 SNOMED-CT Allergies and Adverse Reactions Allergy Substance Reaction Severity Start Date Concern Status Co de Code System No Known Drug Allergies Active 628368240 SNOMED-CT Plan of Treatment MRI ABDOMEN W W/O CONTRAST 05/17/2024 CT ABDOMEN/PELVIS W/ CONTRAST 05/14/[address] ABDOMEN/PELVIS W/ CONTRAST 3 SYMPTOMS 09/07/2021 Encounters Encounter Diagnosis Start Date Code Code Sys tem Encounter for other specified aftercare 07/26/2024 SNOMED-CT Personal Care Team Section Performer Name Performer Role Active Date Inactive Da te
--- OUTSIDE RECORDS SUMMARY | 2024-09-13 13:26 | XMS_ITS ---
Author Organization Unknown Address [address] [place] [phone] Phone Care Team Providers Care Advisor To Command In Combat Name Role Phone ROD ANTHONY Attending Unavailable Social History Type Status Start Date End Date Code Code Syst em Smoking History Former smoker 5286230 SNOMED CT Smoking History Current every day smoker 183790299 SNOMED CT Smoking History Unknown if ever smoked [address] Sex Male Medications Medication Start Date End Date Route Frequency Dose Code Code System Medication Instructions Home Meds NO KNOWN MEDICATIONS 04/03/2019 09/30/2021 ORAL DAILY 1 RxNorm TAKE 1 ORAL DAILY PATIENT OR PATIENT'S FAMILY DENIES 04/03/2019 09/30/2021 ORAL DAILY 1 RxNorm TAKE 1 ORAL DAILY Eliquis 5MG Oral Tablet 10/01/2021 Unknown ORAL TWICE A DAY 5 MILLIGR AMS 602194 7 RxNorm TAKE 5 MILLIGRAMS ORAL TWICE A DAY Somatuline Depot 120MG/0.5ML Subcutaneous Solution 10/01/2021 Unknown SUBCUTANEO US 1 unit(s) 427284 RxNorm INJECT 1 EACH SUBCUTANEOU S Vitamin B12 1000MCG/1ML Intramuscular Solution 10/01/2021 Unknown INTRAMUSCU LAR MONTHLY 1 unit(s) RxNorm INJECT 1 EACH INTRAMUSCUL AR MONTHLY everolimus 5MG Oral Tablet 10/01/2021 Unknown ORAL every other day 5 MILLIGR AMS 656344 RxNorm TAKE 5 MILLIGRAMS ORAL every other [...] Status Code Code System PULMONARY EMBOLISM active 99195864 S NOMED-CT CARCINOID TUMOR active 518641940 SNOM ED-CT RAISA - ACUTE KIDNEY INJURY active 3591 2660 SNOMED-CT Allergies and Adverse Reactions Allergy Substance Reaction Severity Start Date Concern Status Co de Code System No Known Drug Allergies Active 343776257 SNOMED-CT Plan of Treatment MRI ABDOMEN W W/O CONTRAST 05/17/2024 CT ABDOMEN/PELVIS W/ CONTRAST 4 CT ABDOMEN/PELVIS W/ CONTRAST 3 SYMPTOMS 09/07/2021 Encounters Encounter Diagnosis Start Date Code Code Sys tem Encounter for other specified aftercare 07/30/2021 SNOMED-CT Personal Care Team Section Performer Name Performer Role Active Date Inactive Da te
--- OUTSIDE RECORDS SUMMARY | 2024-09-13 13:26 | XMS_ITS ---
Author Organization [facility] Address [address] [place], [place] [phone] Care Team Providers Care Knitting Machine Operator Name Role Phone RAJ VELASCO Primary Care Provider [phone] REASON FOR VISIT [place] food stamps form Encounters Encounter Location Date Provider Diagnosis [facility] [address] [place], [place] [id number] 05/25/2024 RAJ VELASCO Plan Of Treatment Next Appt Details Provider Name:RAJ MC LILLIANA, 04/29/2025 08:45:00 AM, [address] [place], [place], [id number], Progress Notes * Tunde OTERODOB:[birth year] (49 yo M)Acc No.[id number]:05/25/2024 Patient:?JOAQUIMCoryTunde :1975???Age:49 Y???Sex:Male Address:[address] [place] [address] * true * Date:? Generated for Konradi usha/Pato/eTransmitting on:?09/13/2024 01:25 PM EST
--- OUTSIDE RECORDS SUMMARY | 2024-09-13 13:26 | XMS_ITS ---
Author Organization [facility] cine Address [address] [place], [place] [id number] Care Team Providers Care Job Setter Name Role Phone RADHA BERGMAN Primary Care Provider REASON FOR VISIT AWV, Annual Wellness Visit Medications Medication SIG (Take, Route, Frequency, Duration) Notes Start Date End Date Status Everolimus 5 MG 1 tablet Orally ever y other day Active Prochlorperazine Maleate 10 MG 1 tablet Orally Three times a day as needed for nusea Active Acetaminophen 325 MG 2 tablets by mouth every 4 hours as needed Active Cyanocobalamin 1000 MCG/ML uncertain vol ume Injection every 4 weeks Active Lanreotide Acetate 120 MG/0.5ML uncertain volume Subcutaneous once weekly Active Apixaban 5 MG 1 tablet by mouth tw ice daily Active Problems Problem Type SNOMED Code ICD Code Onset Dates Problem Status W/U Status Risk Notes Problem [id number] BMI 37.0-37.9, adult (Z68.37) Active confirmed Vital Signs Height 74 in 04/26/2024 Weight 290 lbs 04/26/2024 BMI 37.23 04/26/2024 Blood pressure systolic 132 mmHg 04/26/20 24 Blood pressure diastolic 84 mmHg 024 Heart Rate 86 /min 04/26/2024 Weight-kg 131.54 kg 04/26/2024 Encounters Encounter Location Date Provider Diagnosis [facility] [address] [place], [place] [id number] 04/26/2024 RADHA BERGMAN Encounter for annual health examination Z00.00 ; BMI 37.0-37.9, adult Z68.37 and 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 Adding muscle by lifting weights or doing other resistance training is also very healthy. Muscle is more metabolically active than fat, and helps us to use more energy all the time. We recommend a diet with lots of vegetables and fruits, not too much starch and sugar, and reasonable portion sizes. The healthiest body mass index is between 18 and 30. Body mass index less than 25 is ideal, however if you are carrying considerably more weight than this, do not despair! You do not have to lose all of this extra weight in order to improve your health and hope your body to be more comfortable and more functional. Any reduction of weight reduces your chance of heart attack, stroke, diabetes, cancer, and reduces the pressure on your joints reducing joint pain. Finding a diet and exercise plan that feels good and makes you happy is most important, because this will motivate you to make a permanent lifestyle change. Any change you make should be in a direction that helps you to feel happier and stronger. It is also very important to be kind and respectful to your self while you are making lifestyle changes. If you focus on your strengths and the things that you are most proud of about yourself, this will add to your success. You do not have to reach an unrealistic weight to goal in order to be successful. Every day that you follow a healthy lifestyle, every day you eat high quality foods, get some exercise, and are good to your body, you are 100% successful. Even if you have a day when you are not meeting these behavioral goals, you can always get back to them the next day. Taking this day by day approach and making behavioral choices which bring you happiness as well as health, is the colindres to long-term success. 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 You have been feeling extremely well with management of cancer over the past years. Plan Of Treatment Treatment Notes Assessment Notes BMI 37.0-37.9, adult In order to loose weight it's important to do some physical activity that gets your heart rate up and gets you breathing hard for 30 to 40 minutes 5 days weekly. Adding muscle by lifting weights or doing other resistance training is also very healthy. Muscle is more metabolically active than fat, and helps us to use more energy all the time. We recommend a diet with lots of vegetables and fruits, not too much starch and sugar, and reasonable portion sizes. The healthiest body mass index is between 18 and 30. Body mass index less than 25 is ideal, however if you are carrying considerably more weight than this, do not despair! You do not have to lose all of this extra weight in order to improve your health and hope your body to be more comfortable and more functional. Any reduction of weight reduces your chance of heart attack, stroke, diabetes, cancer, and reduces the pressure on your joints reducing joint pain. Finding a diet and exercise plan that feels good and makes you happy is most important, because this will motivate you to make a permanent lifestyle change. Any change you make should be in a direction that helps you to feel happier and stronger. It is also very important to be kind and respectful to your self while you are making lifestyle changes. If you focus on your strengths and the things that you are most proud of about yourself, this will add to your success. You do not have to reach an unrealistic weight to goal in order to be successful. Every day that you follow a healthy lifestyle, every day you eat high quality foods, get some exercise, and are good to your body, you are 100% successful. Even if you have a day when you are not meeting these behavioral goals, you can always get back to them the next day. Taking this day by day approach and making behavioral choices which bring you happiness as well as health, is the colindres to long-term success. Malignant carcinoid tumor of ileum You c ontinue to be seen frequently and actively treated by oncology at [facility]. You have been feeling extremely well with management of cancer over the past years. Next Appt Details Follow Up: 1 year, Reason: A [place] without labs Provider Name:RADHA TIJERINA, 04/29/2025 08:45:00 AM, [address], [place], [place], [id number], Progress Notes * Tunde OTERODOB:[birth year] (49 yo M)Acc No.[id number]:04/26/2024 Progress Note Patient:?Tunde OTERO Provider:?Radha Bergman MD :[id number]???Age:49 Y???Sex:Male Karan e:04/26/2024 Address:[address], [place], [id number] Subjective: * Chief Complaints: * ???AWVAnnual Wellness Visit * HPI: ???TFM Depression Screening:?PHQ-2 (2015 Edition)?Little interest or pleasure in doing things??Not at all ?Feeling down, depressed, or hopeless??Not at all ?Total Score?0 ?Intervention?Depression Screening Findings?Negative ???TFM History Taken by Nursing Staff:?ADPE. ???TFM Tobacco Use:?Tobacco Use?Are you a:?former smoker Quit 2011 ???TFM Annual Wellness Visit:?Type of visit:?Subsequent Annual Wellness Visit.?Language or communication barrier:?None.?HEALTH RISK ASSESSMENT:?:.?--- Demographics?:.?- Any changes to employment or marriage status??No.?--- Self Assessment of Health Status?Great - not too bad!.?--- Social and behavioral risks?No tobacco or drug use, but some alcohol use, Not sexually active.?--- Psychological risks?Denies depression, anxiety or lonliness.?--- Pain assessment?Did not experience pain in the last month.?--- Activities of Daily Living?Is able to do all ADLs.?--- Indepentent Activities of Daily Living?Needs assistance with meal preparation, Needs assistance with shopping, Needs assistance with finances, Can use the telephone, Can do housework, Can drive or use public transportation, Can handle medications.?--- Home safety and falls risk?Feels safe at home, Has not fallen in the last year at home, Is interested in remaining at home over the next year, Does not need additional help in the home for safety, Does not need modification of the home for safety..?CURRENT SPECIALISTS AND SUPPLIERS?:.?---- Specialists involved in care?Oncologist, Dr. Gonzalez.? Endocrinology Dr. Chou .???[facility],? [facility].?.?--- Suppliers and vendors?None, .?COGNITIVE FUNCTION?:.?--- Cognitive function evaluation?No overt cognitive deficiency is apparent by direct observation, No concerns are raised by family members, friends, or caretakers, No self-awareness of cognitive deficiency.? * ROS:?Questionaire reviewed, including at least 40 items from 10 categories. See scanned documents. . * Medical History:? * Surgical History:? * Ocular Surgical History:? * Hospitalization/Major Diagno stic Procedure:? * Social History:?General Social History:?Advanced directive completed?Advanced directive completed?No ?Deaf or Blind?Deaf or Blind??No ?Hearing Aids?Hearing Aids??No ?Vison corrected with glasses or contacts?Glasses or Contacts??Yes glasses ?Tobacco: Former smoker , quit in 2011, started age 14. ~ 2ppd x 23 years = ~40 pack years.. ?Lives with: Parents. * Medications:?TakingApixaban 5 MG Tablet 1 tablet by mouth twice daily Everolimus 5 MG Tablet 1 tablet Orally every other day Prochlorperazine Maleate 10 MG Tablet 1 tablet Orally Three times a day as needed for nusea Acetaminophen 325 MG Tablet 2 tablets by mouth every 4 hours as needed Cyanocobalamin 1000 MCG/ML Solution uncertain volume Injection every 4 weeks Lanreotide Acetate 120 MG/0.5ML Solution uncertain volume Subcutaneous once weekly Medication List reviewed and reconciled with the patientTaking Apixaban 5 MG Tablet 1 tablet by mouth twice daily Taking Everolimus 5 MG Tablet 1 tablet Orally every other day Taking Prochlorperazine Maleate 10 MG Tablet 1 tablet Orally Three times a day as needed for nusea Taking Acetaminophen 325 MG Tablet 2 tablets by mouth every 4 hours as needed Taking Cyanocobalamin 1000 MCG/ML Solution uncertain volume Injection every 4 weeks Taking Lanreotide Acetate 120 MG/0.5ML Solution uncertain volume Subcutaneous once weekly Medication List reviewed and reconciled with the patient * Allergies:?NSAIDS: gasatriti s and ulcer in 2012 - Onset Date 11/19/2019no[Allergies Verified] Objective: * Vitals:?Nurse Initials: LAW, Height: 74 in, Weight:290lbs, BMI:37.23, BP:132/84mmHg, HR:86/min, Vision: L 20/50, R 20/40. B 20/30 with glasses, Ht-cm: 187.96 cm, Wt- k.54 kg. * ???Past Orders: Lab:CBC W/ DIFFERENTIAL* * Collection Date 03/12/2024 11/30/2023 10/05/2023 Collection Time 09:23 AM 07:41 AM 07:57 AM Order Date 03/12/2024 11/30/2023 10/05/2023 Result: Plt 80 plt 71 PLT 79 WBC 5.13 (Ref Range: 5.00 - 10.00 th/cmm) 4.78?L (Ref Range: 5.00 - 10.00 th/cmm) 5.77 (Ref Range: 5.00 - 10.00 th/cmm) NEUT % 74.0 (Ref Range: 40.0 - 80.0 %) 67.1 (Ref Range: 40.0 - 80.0 %) 67.3 (Ref Range: 40.0 - 80.0 %) LYMPH % 15.2 (Ref Range: 10.0 - 50.0 %) 16.7 (Ref Range: 10.0 - 50.0 %) 16.8 (Ref Range: 10.0 - 50.0 %) MONO % 9.0 (Ref Range: 2.0 - 12.0 %) 14.4?H (Ref Range: 2.0 - 12.0 %) 13.7?H (Ref Range: 2.0 - 12.0 %) EOS % 0.6 (Ref Range: 0.0 - 8.0 %) 0.8 (Ref Range: 0.0 - 8.0 %) 1.2 (Ref Range: 0.0 - 8.0 %) BASO % 0.8 (Ref Range: 0.0 - 3.0 %) 0.6 (Ref Range: 0.0 - 3.0 %) 0.7 (Ref Range: 0.0 - 3.0 %) IG % 0.4 (Ref Range: 0.0 - 1.1 %) 0.4 (Ref Range: 0.0 - 1.1 %) 0.3 (Ref Range: 0.0 - 1.1 %) NRBC % 0.0 (Ref Range: 0.0 - 0.0 %) 0.0 (Ref Range: 0.0 - 0.0 %) 0.0 (Ref Range: 0.0 - 0.0 %) NEUT abs count 3.8 (Ref Range: 1.6 - 8.4 th/cmm) 3.2 (Ref Range: 1.6 - 8.4 th/cmm) 3.9 (Ref Range: 1.6 - 8.4 th/cmm) LYMPH abs count 0.8?L (Ref Range: 1.5 - 4.0 th/cmm) 0.8?L (Ref Range: 1.5 - 4.0 th/cmm) 1.0?L (Ref Range: 1.5 - 4.0 th/cmm) MONO abs count 0.5 (Ref Range: 0.2 - 1.0 th/cmm) 0.7 (Ref Range: 0.2 - 1.0 th/cmm) 0.8 (Ref Range: 0.2 - 1.0 th/cmm) EOS abs count 0.0 (Ref Range: 0.0 - 0.5 th/cmm) 0.0 (Ref Range: 0.0 - 0.5 th/cmm) 0.1 (Ref Range: 0.0 - 0.5 th/cmm) BASO abs count 0.0 (Ref Range: 0.0 - 0.2 th/cmm) 0.0 (Ref Range: 0.0 - 0.2 th/cmm) 0.0 (Ref Range: 0.0 - 0.2 th/cmm) IG abs count 0.0 (Ref Range: 0.0 - 0.1 th/cmm) 0.0 (Ref Range: 0.0 - 0.1 th/cmm) 0.0 (Ref Range: 0.0 - 0.1 th/cmm) NRBC abs count 0.0 (Ref Range: 0.0 - 0.0 mil/cmm) 0.0 (Ref Range: 0.0 - 0.0 mil/cmm) 0.0 (Ref Range: 0.0 - 0.0 mil/cmm) RBC 4.47 (Ref Range: 4.30 - 6.20 mil/cmm) 4.66 (Ref Range: 4.30 - 6.20 mil/cmm) 4.67 (Ref Range: 4.30 - 6.20 mil/cmm) HEMOGLOBIN 14.1 (Ref Range: 13.0 - 17.0 gm/dL) 14.5 (Ref Range: 13.0 - 17.0 gm/dL) 14.2 (Ref Range: 13.0 - 17.0 gm/dL) HEMATOCRIT 43?L (Ref Range: 45 - 52 %) 43?L (Ref Range: 45 - 52 %) 42?L (Ref Range: 45 - 52 %) MCV 96?H (Ref Range: 82 - 92 fL) 92 (Ref Range: 82 - 92 fL) 90 (Ref Range: 82 - 92 fL) MCH 31.5?H (Ref Range: 27.0 - 31.0 pg) 31.1?H (Ref Range: 27.0 - 31.0 pg) 30.4 (Ref Range: 27.0 - 31.0 pg) MCHC 33.0 (Ref Range: 32.0 - 36.0 %) 33.8 (Ref Range: 32.0 - 36.0 %) 33.9 (Ref Range: 32.0 - 36.0 %) RDW-SD 53.4?H (Ref Range: 39.0 - 49.0 fL) 53.4?H (Ref Range: 39.0 - 49.0 fL) 51.8?H (Ref Range: 39.0 - 49.0 fL) PLATELET COUNT 80?L (Ref Range: 150 - 450 th/cmm) 71?L (Ref Range: 150 - 450 th/cmm) 79?L (Ref Range: 150 - 450 th/cmm) Giant plts NR present present * Lab:COMPREHENSIVE METABOLIC PANEL (CMP) * Collection Date 03/12/2024 11/30/2023 10/05/2023 Collection Time 09:23 AM 07:41 AM 07:57 AM Order Date 03/12/2024 11/30/2023 10/05/2023 Result: GFR 53, bili 1.7 gft 57, Br 1.9 gfr 65, B R 1.9 GLUCOSE 99 (Ref Range: 70 - 116 mg/dL) 104 (Ref Range: 70 - 116 mg/dL) 94 (Ref Range: 70 - 116 mg/dL) BUN 14 (Ref Range: 6 - 25 mg/dL) 21 (Ref Range: 6 - 25 mg/dL) 18 (Ref Range: 6 - 25 mg/dL) CREATININE 1.41?H (Ref Range: 0.67 - 1.17 mg/dL) 1.32?H (Ref Range: 0.67 - 1.17 mg/dL) 1.19?H (Ref Range: 0.67 - 1.17 mg/dL) SODIUM SERUM 138 (Ref Range: 136 - 145 mmol/L) 139 (Ref Range: 136 - 145 mmol/L) 139 (Ref Range: 136 - 145 mmol/L) POTASSIUM SERUM 4.0 (Ref Range: 3.4 - 5.2 mmol/L) 3.7 (Ref Range: 3.4 - 5.2 mmol/L) 3.5 (Ref Range: 3.4 - 5.2 mmol/L) CHLORIDE SERUM 105 (Ref Range: 96 - 110 mmol/L) 102 (Ref Range: 96 - 110 mmol/L) 104 (Ref Range: 96 - 110 mmol/L) CARBON DIOXIDE (CO2) 25 (Ref Range: 22 - 34 mmol/L) 24 (Ref Range: 22 - 34 mmol/L) 24 (Ref Range: 22 - 34 mmol/L) ANION GAP 8.0 (Ref Range: mmol/L) 13.4 (Ref Range: mmol/L) 10.9 (Ref Range: mmol/L) CALCIUM SERUM 8.8 (Ref Range: 8.2 - 10.2 mg/dL) 9.2 (Ref Range: 8.2 - 10.2 mg/dL) 9.0 (Ref Range: 8.2 - 10.2 mg/dL) BILIRUBIN TOTAL 1.7?H (Ref Range: 0.0 - 1.3 mg/dL) 1.9?H (Ref Range: 0.0 - 1.3 mg/dL) 1.9?H (Ref Range: 0.0 - 1.3 mg/dL) ALK. PHOS. 155?H (Ref Range: 46 - 116 U/L) 143?H (Ref Range: 46 - 116 U/L) 163?H (Ref Range: 46 - 116 U/L) SGOT (AST) 19 (Ref Range: 15 - 37 U/L) 18 (Ref Range: 15 - 37 U/L) 19 (Ref Range: 15 - 37 U/L) SGPT (ALT) 17 (Ref Range: 12 - 78 U/L) 13 (Ref Range: 12 - 78 U/L) 16 (Ref Range: 12 - 78 U/L) TOTAL PROTEIN 8.2?H (Ref Range: 6.0 - 8.0 gm/dL) 8.2?H (Ref Range: 6.0 - 8.0 gm/dL) 8.2?H (Ref Range: 6.0 - 8.0 gm/dL) ALBUMIN 4.1 (Ref Range: 3.4 - 5.0 gm/dL) 3.7 (Ref Range: 3.4 - 5.0 gm/dL) 3.7 (Ref Range: 3.4 - 5.0 gm/dL) AGE 50 (Ref Range: years) 50 (Ref Range: years) 50 (Ref Range: years) eGFR (non-Afr.Amer.) 53 (Ref Range: mL/min) 57 (Ref Range: mL/min) 65 (Ref Range: mL/min) eGFR (Afr-Bruneian) 64 (Ref Range: mL/min) 69 (Ref Range: mL/min) 78 (Ref Range: mL/min) * Examination: ???General Examination: ?GENERAL APPEARANCE:?alert , interactive , well hydrated , well nourished , in no acute distress.?HEAD:?atraumatic.?EYES:?extraocular movement full and smooth , sclera anicteric , conjunctiva clear.?EARS:?bilateral, auditory canal clear, tympanic membrane intact, clear.?ORAL CAVITY:?mucosa moist , no lesions , good dentition.?THROAT:?no erythema , no exudate , uvula midline.?NECK/THYROID:?neck supple , no thyromegaly , no lymphadenopathy.?SKIN:?warm and dry , no suspicious lesions.?HEART:?regular rate and rhythm , S1, S2 normal , no murmurs.?LUNGS:?normal work of breathing , clear to auscultation bilaterally , no wheezes, rales, rhonchi , good air movement.?CHEST:?normal shape and expansion.?ABDOMEN:?bowel sounds present and normally active , soft, nontender, nondistended , no hepatosplenomegaly.?BACK:?no kyphosis , no scoliosis.?EXTREMITIES:?no edema,.?PERIPHERAL PULSES:?2+ , dorsalis pedis , bilaterally , 2+ , radial , bilaterally.?NEUROLOGIC:?alert and oriented , cognitive exam grossly normal , , motor strength normal upper and lower extremities , sensory exam intact , normal fluent speech, gait normal.? 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 Plan: * Treatment: 2.?Malignant carcinoid tumor of ileum? Notes: You continue to be seen frequently and actively treated by oncology at [facility]. You have been feeling extremely well with management of cancer over the past years.?? * Procedure Codes:?G0439 ANNUA L WELLNESS VST; PPS SUBSQT VST * Preventive Medicine:? ??YOUR PREVENTIVE WELLNESS PLAN:?BMI, Height, and Weight:?The Recommended Frequency is:?Annually ?My BMI, height, and weight were taken on:?04/26/2024 ?Blood Pressure:?The Recommended Frequency is:?Annually, if BP is greater than 120/80 mm Hg ?My blood pressure was last taken on:?04/26/2024 ?Vision:?The Recommended Frequency is:?Every two years aged 40+ ?My last vision screening was done on:?04/26/2024 ?Abdominal Aortic Aneurysm:?The Recommended Frequency is:?Once, between the age range of 65-75 and for those who have smoked 100+ cigarettes in lifetime not needed now ?Cholesterol Testing:?The Recommended Frequency is:?Every 5 years after the age of 56,Regularly beginning at age 20 with risk factors great cholesterol in 2021, Due in 2026. ?My Cholesterol was last tested on:?04/23/2022 ?Diabetes Screening:?The Recommended Frequency is:?With a sustained BP >/= 135/80 mm Hg done regularly with each lab draw by oncology ?Colorectal Cancer Screening:?The Recommended Frequency is:?Every 10 years, Colonoscopy ?Screening for colorectal cancer was last done on:?10/07/2022 ?Sexually Transmitted Diseases (STDs):?The Recommended Frequency is:?Not currently needed ?Depression Screening:?The Recommended Frequency is:?As necessary for those with risk factors ?Screening for depression was last done on:?04/26/2024 ?Alcohol Misuse Screening:?The Recommended Frequency is:?As necessary for those with risk factors ?Screening for alcohol misuse was last done on:?04/26/2024 ?Vaccination:?The Recommended Frequency is:?1 dose of PPV23 age 65+, 1 dose of PCV 13 for those at high risk, Influenza vaccine yearly, Covid vaccine and boosters, Tetanus booster every 10 years, Shingles vaccine, 2 doses for those over the age of 50 if desired, Hepatitis C vaccine, 2 doses for those with risk factors or if desired ?____.?Major Risk Factors?Your Risk Factors Include:?Other ?Recommendations For Improvement and Screening?The recommendations are:?Diet,Exercise,Immunizations recommended,Counseling ?Additional Resources Included:?Follow-up instructions.?This plan was discussed, printed, and handed to patient. VACCINES: I do recommend the shingrix vaccination, which can be obtained at the pharmacy. Two doses by 2 to 6 months provides supperior protection against shingles than the previous shingles vaccine, and is recommended for everyone over the age of 50 who ever had chicken pox. Sometimes this vaccine causes people to feel under the weather for a couple of days, but it does not cause any illness. I recommend to stay current with either of the available Covid-19 vaccines. Recommend to update with yearly updated vaccine when this comes out at the end of the summer. People of average risk are encouraged to update yearly. People of high risk can opt to repeat that vaccine at a 6 month interval as well. These are safe and effective vaccines, and much les risky than getting Covid-19. You can make an appointment at the pharmacy to receive yours. You can visit the pharmacy web sites to reserve a vaccine appointment, or we can give this to you at [facility]. The flu vaccine saves lives. I recommend a flu vaccine every fall. It helps to prevent flu for you and also prevent flu from passing through you to other people. It is recommended to receive the pneumonia vaccine Prevnar, also known as PCV- 20. This works along with the Pnuemovax vaccine to prevent the sort of bacterial pneumonia that is most often dangerous. You can obtain that vaccine at the pharmacy if you ask. This is given once in a lifetime. Tick born illness: To prevent tick born illness, you may choose to use permethrin or DEET on your clothing, (not skin,) and cover up to avoid ticks getting to your skin when you are outdoors in the honeycutt or brush. Most importantly it is important to check for ticks every evening, using a hand mirror so that you can see your whole body. If you find a tick, remove it by grasping it near the skin with tweezers and pulling strait up. If a black legged tick has been attached for more than 36 hours it can transmit disease, so go to the doctor for preventative medication. If you experience fever, headache, joint pain, muscle aches, fatigue or a rash within 3 to 30 days after a tick bite, go to the doctor to review. [employer] for more information.. * Follow Up:?1 year (Reason: A [place] without labs) * Billing Information: * Visit Code:? * Procedure Codes:? G0439 ANNUAL WELLNESS VST; PPS SUBSQT VST. * Sign off status: Completed true * Provider:?Radha Bergman MD Date:? Generated for Denise kerr/Pato/eTransmitting on:?09/13/2024 01:25 PM EST History and Physical Notes * HPI (History of Present Illness) Category Sub-Category Detail Notes TFM Depression Screening PHQ-2 (2015 Edition) Li ttle interest or pleasure in doing things?: Not at all Feeling down, depressed, or hopeless?: N ot at all Total Score: 0 Intervention Depression Screening Findings: N egative TFM Tobacco Use Tobacco Use Are you a:: former smoker Quit 2011 TF Annual Wellness Visit Type of visit: Subseq uent Annual Wellness Visit Language or communication barrier: None HEALTH RISK ASSESSMENT: : --- Demographics : - Any changes to employment or marriage status? No --- Self Assessment of Health Status Gre at - not too bad! --- Social and behavioral risks No tobac co or drug use, but some alcohol use, Not sexually active --- Psychological risks Denies depressio n, anxiety or lonliness --- Pain assessment Did not experience p ain in the last month --- Activities of Daily Living Is able t o do all ADLs --- Indepentent Activities of Daily Kelley ng Needs assistance with meal preparation, Needs assistance with shopping, Needs assistance with finances, Can use the telephone, Can do housework, Can drive or use public transportation, Can handle medications --- Home safety and falls risk Feels saf e at home, Has not fallen in the last year at home, Is interested in remaining at home over the next year, Does not need additional help in the home for safety, Does not need modification of the home for safety. CURRENT SPECIALISTS AND SUPPLIERS : ---- Specialists involved in care Oncolo gist, Dr. Gonzalez. Endocrinology Dr. Chou . [facility], [place] [facility]. --- Suppliers and vendors None, COGNITIVE FUNCTION : --- Cognitive function evaluation No ove rt cognitive deficiency is apparent by direct observation, No concerns are raised by family members, friends, or caretakers, No self-awareness of cognitive deficiency Examination Category Sub-Category Detail Notes General Examination GENERAL APPEARANCE: alert , interactive , well hydrated , well nourished , in no acute distress HEAD: atraumatic EYES: extraocular movement full and smooth , sclera anicteric , conjunctiva clear EARS: bilateral, auditory canal clear, tympanic membrane intact, clear THROAT: no erythema , no exu date , uvula midline NECK/THYROID: neck supple , no thy romegaly , no lymphadenopathy HEART: regular rate and rhy thm , S1, S2 normal , no murmurs CHEST: normal shape and exp ansion LUNGS: normal work of breat daquan , clear to auscultation bilaterally , no wheezes, rales, rhonchi , good air movement ABDOMEN: bowel sounds present and normally active , soft, nontender, nondistended , no hepatosplenomegaly NEUROLOGIC: alert and oriented , cognitive exam grossly normal , , motor strength normal upper and lower extremities , sensory exam intact , normal fluent speech, gait normal SKIN: warm and dry , no rodriguez spicious lesions EXTREMITIES: no edema, PERIPHERAL PULSES: 2+ , dorsalis pedis , bilaterally , 2+ , radial , bilaterally BACK: no kyphosis , no sco liosis ORAL CAVITY: mucosa moist , no le sions , good dentition
--- OUTSIDE RECORDS SUMMARY | 2024-09-13 13:26 | XMS_ITS | Patient Health Record ---
Author Organization [facility] Address [address] [place] [id number] Care Team Providers Care Shipping Clerk Crating Name Role Phone RAJ VELASCO Primary Care Provider [phone] Reason For Referral No Information Medications Medication SIG (Take, Route, Frequency, Duration) Notes Start Date End Date Status Apixaban 5 MG 1 tablet by mouth tw ice daily Active Everolimus 5 MG 1 tablet Orally ever y other day Active Prochlorperazine Maleate 10 MG 1 tablet Orally Three times a day as needed for nusea Active Acetaminophen 325 MG 2 tablets by mouth every 4 hours as needed Active Cyanocobalamin 1000 MCG/ML uncertain vol ume Injection every 4 weeks Active Lanreotide Acetate 120 MG/0.5ML uncertain volume Subcutaneous once weekly Active Immunizations Vaccine Route Administration Date Status Comme nts zzzInfluenza, seasonal, inje ctable, preservative free, 3 yrs and above Unknown 08/05/2019 Administered Tdap Unknown 08/08/2013 Administered Tdap Unknown 07/22/2023 Administered Influenza, high dose seasonal Unknown 07/06/2020 Admini stered Influenza, high dose seasonal Unknown 06/26/2021 Admini stered Influenza >6 months Unknown 07/15/2022 Administered Influenza >6 months Unknown 07/22/2023 Administered Covid-19 [employer] 12+ yo Unknown 07/15/2022 Admi nistered Covid-19 Moderna Dose 2 Unknown 02/26/2021 Administered Covid-19 Moderna Dose 1 Unknown 01/29/2021 Administered Covid-19 Moderna Bivalent 12y+ Unknown 03/09/2023 Admin istered Covid-19 Moderna Unknown 09/19/2021 Administered Covid-19 Moderna Unknown 01/28/2022 Administered Problems Problem Type SNOMED Code ICD Code Onset Dates Problem Status W/U Status Risk Notes Problem 135259300 Ventral hernia without obstruction or gangrene (K43.9) Active confirmed Problem 311247450 History of pulmonary embolus (PE) (Z86.711) Active confirmed Problem 619083854 BMI 37.0-37.9, adult (Z68.37) Active confirmed Problem 079111241174844 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 Problem 49101194 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 confirmed Problem 893649200 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) Active confirmed Vital Signs Heart Rate 86 /min 04/26/2024 Blood pressure diastolic 84 mmHg 04/26/2024 Weight-kg 131.54 kg 04/26/2024 Height 74 in 04/26/2024 Blood pressure systolic 132 mmHg 04/26/2024 Weight 290 lbs 04/26/2024 BMI 37.23 04/26/2024 Encounters Encounter Location Date Provider Diagnosis [facility] [address] [place], [place] [id number] 04/26/2024 RAJ VELASCO Encounter for annual health examination Z00.00 ; BMI 37.0-37.9, adult Z68.37 and Malignant carcinoid tumor of ileum C7A.012 [facility] [address] [place], [place] [id number] 05/25/2024 RAJ VELASCO [facility] [address] [place] [id number] 08/09/2024 RAJ VELASCO Assessments Encounter Date Diagnosis (ICD Code) Assessment Notes Treatment Notes Treatment Clinical Notes 04/26/2024 BMI 37.0-37.9, adult (ICD-10 - Z68.37) [...] is the colindres to long-term success. 04/26/2024 Encounter for annual health examination (ICD-10 - Z00.00) 04/26/2024 Malignant carcinoid tumor of ileum (ICD-10 - C7A.012) You continue to be seen frequently and actively treated by oncology at [facility]. You have been feeling extremely well with management of cancer over the past years. Plan Of Treatment Pending Test Test Name Order Date - Physical Therapy Order (PT, OT or AT) 11/19/2019 Xray Elbow, RT 2V 11/19/2019 Next Appt Details Provider Name:RAJ TIJERINA, 04/29/2025 08:45:00 AM, [address] , [place], [place], [id number], Insurance Providers Payer Name Payer Address Payer Phone Subscriber Number Group Number Insured Name Patient Relationship to Insured Coverage Start Date Coverage End Date Medicare of [place] [address] [place] [phone] [id number] Tunde Otero Self - patient is the insured Medicaid of [place] [address] [place] [id number] Tunde Otero Self - patient is the insured Medical (General) History Medical History History ICD Code Carcinoid tumor of terminal ileum, 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 Illness started in 10/10 with pain and fever and ileitis initially on CT, treated for infectious and then Crohn's ileitis. Imaging and scope plus biopsy did not yield diagnosis until bowel resection for partial obstruction. Final diagnosis was no Crohn's disease, only carcinoid tumor. Of 27 lymph nodes, 5 were positive. Single liver metastasis seen in 03/13 and removed surgically in 04/13. CT in 10/13 showed no metastasis. Evidence of recurrence on imaging in 05/17, not apparently resectable. Treated with chemotherapy, slowly Growing or stable. Ulcer in setting of NSAID overuse for ab dominal pain in 2011 Ventral hernia since ileostomy reversal in 2012 Gallstone pancreatitis, acut e in 03/14. Gallbladder not removed, attempted in 05/14, but too much scarring. Lower back pain resolved with physical t herapy in 05/15. Pulmonary embolus in 10/20. Started on e lequis. Surgical History Surgery Date(Month/Year) Eye surgery for eye turned in, Rubén Mendez. Age 2 Adenoids removed twice Ileostomy reversal - [facility], Dr. Giuliano nguyen 06/01/13 Section of intestine removed and appende ctomy, for obstruction 12/29/12 Liver metastasis resected 04/13 Laparoscopic ventral hernia reduction, [facility] 02/21/15 Cholecystectomy, 2 placement , and exploratory laparotomy, Dr. Forde, [facility] 05/14/15 Cataract surgery right eye, Handy diop. 12/18 Hospitalization History Reason Date(Month/Year) [facility]am from 09/30-10/01/21 for peripheral pulmonary emboli in the setting of carcinoid tumor. He was having intermittent chest pain for a month, elevated d-dimer and CT angiogram showing small pulmonary emboli and distal branches of the right lobe and left lobe. Started on apixaban 09/30- 10/01/21 Gallstone pancreatitis, [facility] 05/16/15 Gallstone pancreatitis, [facility] 03/14
[2024-09-13 13:34] LABS: ALT 12 U/L (16-63); AST 18 U/L (15-37); Albumin 3.7 g/dL (3.4-5.0); Alkaline Phosphatase 139 U/L (46-116); Anion Gap 10.7 mmol/L (3-11); BUN 17 mg/dL (7-18); Bilirubin, Total 1.29 mg/dL (0.2-1.0); CO2 25.3 mmol/L (21.0-32.0); CREATININE 1.7 mg/dL (0.70-1.30); Calcium 8.9 mg/dL (8.5-10.1); Chloride 107 mmol/L (98-107); Estimated GFR 48.21 (mL/min/1.73m2); Glucose 122 mg/dL (74-106); Potassium 4.3 mmol/L (3.5-5.1); Sodium 143 mmol/L (136-145); Total Protein 8.3 g/dL (6.4-8.2)
[2024-09-13 13:50] LABS: Platelet Count 83 10^3/uL (130-400)
[2024-09-14 21:36] LABS: Chromogranin A 194 ng/mL (<93)
== END 2024-09-13 13:07 | disposition home or self-care (01) ==
LOC: LBO 13:08
PROVIDERS: PCP Internal Medicine Hematology & Oncology; Visit Provider Internal Medicine Hematology & Oncology
DX: C7B.02 Secondary carcinoid tumors of liver (principal)
CPT/HCPCS: 36415; 80053; 85025; 86316

== ENCOUNTER 2024-10-09 01:58 | Outpatient (CLI) | payer MEDICARE, MEDICAID, SELFPAY ==
[2024-10-09 12:40] LABS: Abs Immature Grans 0.02 10^3/uL (0.0-0.06); Absolute Basophil Count 0.03 10^3/uL (0.0-0.2); Absolute Eosinophil Count 0.04 10^3/uL (0.0-0.7); Absolute Monocyte Count 0.44 10^3/uL (0.1-0.8); Basophils % 0.6 %; Eosinophils % 0.8 %; HCT 41.7 % (40.0-50.0); HGB 13.8 g/dL (13.5-17.5); Immature Grans % 0.4 %; Lymphocytes % 17.9 %; MCH 30.9 pg (27.0-33.0); MCHC 33.1 % (32.0-36.0); MCV 94 fL (80-95); MPV 12.9 fL (8.0-11.0); Monocytes % 8.7 %; Neutrophils % 71.6 %; RBC 4.46 10^6/uL (4.36-5.78); RDW 16.2 % (11.8-14.1); RDW-SD 55.9 fL; WBC 5.03 10^3/uL (4.4-10.8)
[2024-10-09 12:58] LABS: Platelet Count 91 10^3/uL (130-400)
[2024-10-09 13:09] LABS: ALT 15 U/L (16-63); AST 22 U/L (15-37); Albumin 4.1 g/dL (3.4-5.0); Alkaline Phosphatase 133 U/L (46-116); Anion Gap 9.7 mmol/L (3-11); BUN 15 mg/dL (7-18); CO2 25.3 mmol/L (21.0-32.0); CREATININE 1.6 mg/dL (0.70-1.30); Calcium 9.2 mg/dL (8.5-10.1); Chloride 104 mmol/L (98-107); Estimated GFR 51.84 (mL/min/1.73m2); Glucose 93 mg/dL (74-106); Potassium 4.3 mmol/L (3.5-5.1); Sodium 139 mmol/L (136-145); Total Protein 8.7 g/dL (6.4-8.2)
[2024-10-10 20:08] LABS: Chromogranin A 230 ng/mL (<93)
== END 2024-10-09 01:59 | disposition home or self-care (01) ==
LOC: LBO 01:58
PROVIDERS: PCP Internal Medicine Hematology & Oncology; Visit Provider Internal Medicine Hematology & Oncology
DX: C7B.02 Secondary carcinoid tumors of liver (principal)
CPT/HCPCS: 36415; 80053; 85025; 86316

== ENCOUNTER 2024-11-08 12:50 | Outpatient (CLI) | payer MEDICARE, MEDICAID, SELFPAY ==
[2024-11-08 13:17] LABS: Abs Immature Grans 0.01 10^3/uL (0.0-0.06); Absolute Basophil Count 0.03 10^3/uL (0.0-0.2); Absolute Eosinophil Count 0.03 10^3/uL (0.0-0.7); Absolute Lymphocyte Count 0.89 10^3/uL (1.2-3.4); Absolute Monocyte Count 0.47 10^3/uL (0.1-0.8); Absolute Neutrophil Count 3.44 10^3/uL (1.2-6.7); Basophils % 0.6 %; Eosinophils % 0.6 %; HCT 41.7 % (40.0-50.0); Immature Grans % 0.2 %; Lymphocytes % 18.3 %; MCH 31.5 pg (27.0-33.0); MCHC 33.6 % (32.0-36.0); MCV 94 fL (80-95); MPV 12.3 fL (8.0-11.0); Monocytes % 9.7 %; Neutrophils % 70.6 %; RBC 4.45 10^6/uL (4.36-5.78); RDW 15.4 % (11.8-14.1); RDW-SD 53.1 fL; WBC 4.87 10^3/uL (4.4-10.8)
[2024-11-08 13:31] LABS: ALT 15 U/L (16-63); AST 21 U/L (15-37); Albumin 4.1 g/dL (3.4-5.0); Alkaline Phosphatase 132 U/L (46-116); Anion Gap 9.8 mmol/L (3-11); BUN 18 mg/dL (7-18); CO2 26.2 mmol/L (21.0-32.0); CREATININE 1.5 mg/dL (0.70-1.30); Calcium 9.2 mg/dL (8.5-10.1); Chloride 103 mmol/L (98-107); Estimated GFR 56.02 (mL/min/1.73m2); Glucose 122 mg/dL (74-106); Potassium 4.1 mmol/L (3.5-5.1); Sodium 139 mmol/L (136-145); Total Protein 8.4 g/dL (6.4-8.2)
[2024-11-08 13:34] LABS: Platelet Count 66 10^3/uL (130-400)
[2024-11-12 09:30] LABS: Chromogranin A 224 ng/mL (<93)
== END 2024-11-08 12:51 | disposition home or self-care (01) ==
LOC: LBO 12:52
PROVIDERS: PCP Internal Medicine Hematology & Oncology; Visit Provider Internal Medicine Hematology & Oncology
DX: C7B.02 Secondary carcinoid tumors of liver (principal)
CPT/HCPCS: 36415; 80053; 85025; 86316

== ENCOUNTER 2024-12-06 14:17 | Outpatient (CLI) | payer MEDICARE, MEDICAID, SELFPAY ==
[2024-12-06 12:24] LABS: Abs Immature Grans 0.02 10^3/uL (0.0-0.06); Absolute Basophil Count 0.03 10^3/uL (0.0-0.2); Absolute Eosinophil Count 0.05 10^3/uL (0.0-0.7); Absolute Lymphocyte Count 1.03 10^3/uL (1.2-3.4); Absolute Monocyte Count 0.43 10^3/uL (0.1-0.8); Absolute Neutrophil Count 3.78 10^3/uL (1.2-6.7); Basophils % 0.6 %; Eosinophils % 0.9 %; HGB 15.4 g/dL (13.5-17.5); Immature Grans % 0.4 %; Lymphocytes % 19.3 %; MCH 31.7 pg (27.0-33.0); MCHC 33.5 % (32.0-36.0); MCV 95 fL (80-95); Monocytes % 8.1 %; Neutrophils % 70.7 %; RBC 4.86 10^6/uL (4.36-5.78); RDW 14.6 % (11.8-14.1); RDW-SD 50.6 fL; WBC 5.34 10^3/uL (4.4-10.8)
[2024-12-06 12:40] LABS: Platelet Count 69 10^3/uL (130-400)
[2024-12-06 12:43] LABS: ALT 14 U/L (16-63); AST 20 U/L (15-37); Albumin 4.3 g/dL (3.4-5.0); Alkaline Phosphatase 143 U/L (46-116); Anion Gap 8.9 mmol/L (3-11); BUN 15 mg/dL (7-18); CO2 25.1 mmol/L (21.0-32.0); CREATININE 1.7 mg/dL (0.70-1.30); Calcium 9.8 mg/dL (8.5-10.1); Chloride 102 mmol/L (98-107); Estimated GFR 48.21 (mL/min/1.73m2); Glucose 94 mg/dL (74-106); Sodium 136 mmol/L (136-145); Total Protein 8.8 g/dL (6.4-8.2)
[2024-12-08 12:56] LABS: Chromogranin A 283 ng/mL (<93)
== END 2024-12-06 14:18 | disposition home or self-care (01) ==
LOC: LBO 14:18
PROVIDERS: PCP Internal Medicine Hematology & Oncology; Visit Provider Internal Medicine Hematology & Oncology
DX: C7B.02 Secondary carcinoid tumors of liver (principal)
CPT/HCPCS: 36415; 80053; 85025; 86316

== ENCOUNTER 2025-01-03 13:43 | Outpatient (CLI) | payer MEDICARE, MEDICAID, SELFPAY ==
[2025-01-03 13:56] LABS: Abs Immature Grans 0.02 10^3/uL (0.0-0.06); Absolute Basophil Count 0.04 10^3/uL (0.0-0.2); Absolute Eosinophil Count 0.05 10^3/uL (0.0-0.7); Absolute Lymphocyte Count 0.96 10^3/uL (1.2-3.4); Absolute Monocyte Count 0.38 10^3/uL (0.1-0.8); Absolute Neutrophil Count 2.87 10^3/uL (1.2-6.7); Basophils % 0.9 %; Eosinophils % 1.2 %; HGB 14.4 g/dL (13.5-17.5); Immature Grans % 0.5 %; Lymphocytes % 22.2 %; MCH 31.5 pg (27.0-33.0); MCHC 33.5 % (32.0-36.0); MCV 94 fL (80-95); MPV 12.3 fL (8.0-11.0); Monocytes % 8.8 %; Neutrophils % 66.4 %; RBC 4.57 10^6/uL (4.36-5.78); RDW 14.8 % (11.8-14.1); RDW-SD 51.2 fL; WBC 4.32 10^3/uL (4.4-10.8)
[2025-01-03 14:04] LABS: Platelet Count 64 10^3/uL (130-400)
[2025-01-03 15:14] LABS: ALT 13 U/L (16-63); AST 21 U/L (15-37); Albumin 4.2 g/dL (3.4-5.0); Alkaline Phosphatase 143 U/L (46-116); Anion Gap 8.5 mmol/L (3-11); BUN 17 mg/dL (7-18); Bilirubin, Total 2.8 mg/dL (0.2-1.0); CO2 26.5 mmol/L (21.0-32.0); CREATININE 1.6 mg/dL (0.70-1.30); Calcium 9.1 mg/dL (8.5-10.1); Chloride 104 mmol/L (98-107); Estimated GFR 51.84 (mL/min/1.73m2); Glucose 89 mg/dL (74-106); Potassium 4.1 mmol/L (3.5-5.1); Sodium 139 mmol/L (136-145); Total Protein 8.4 g/dL (6.4-8.2)
[2025-01-05 13:20] LABS: Chromogranin A 254 ng/mL (<93)
== END 2025-01-03 13:44 | disposition home or self-care (01) ==
LOC: LBO 13:44
PROVIDERS: PCP Internal Medicine Hematology & Oncology; Visit Provider Internal Medicine Hematology & Oncology
DX: C7B.02 Secondary carcinoid tumors of liver (principal)
CPT/HCPCS: 36415; 80053; 85025; 86316

== ENCOUNTER 2025-01-31 03:32 | Outpatient (CLI) | payer MEDICARE, MEDICAID, SELFPAY ==
[2025-01-31 13:30] LABS: Abs Immature Grans 0.03 10^3/uL (0.0-0.06); Absolute Basophil Count 0.04 10^3/uL (0.0-0.2); Absolute Eosinophil Count 0.06 10^3/uL (0.0-0.7); Absolute Lymphocyte Count 1.11 10^3/uL (1.2-3.4); Absolute Monocyte Count 0.51 10^3/uL (0.1-0.8); Absolute Neutrophil Count 3.56 10^3/uL (1.2-6.7); Basophils % 0.8 %; Eosinophils % 1.1 %; HCT 45.1 % (40.0-50.0); HGB 14.7 g/dL (13.5-17.5); Immature Grans % 0.6 %; Lymphocytes % 20.9 %; MCHC 32.6 % (32.0-36.0); MCV 95 fL (80-95); MPV 12.4 fL (8.0-11.0); Monocytes % 9.6 %; RBC 4.74 10^6/uL (4.36-5.78); RDW 15.9 % (11.8-14.1); WBC 5.31 10^3/uL (4.4-10.8)
[2025-01-31 13:46] LABS: Platelet Count 77 10^3/uL (130-400)
[2025-01-31 13:53] LABS: ALT 14 U/L (16-63); AST 18 U/L (15-37); Albumin 4.2 g/dL (3.4-5.0); Alkaline Phosphatase 142 U/L (46-116); Anion Gap 13.5 mmol/L (3-11); BUN 19 mg/dL (7-18); Bilirubin, Total 2.2 mg/dL (0.2-1.0); CO2 24.5 mmol/L (21.0-32.0); CREATININE 1.6 mg/dL (0.70-1.30); Calcium 9.2 mg/dL (8.5-10.1); Chloride 105 mmol/L (98-107); Estimated GFR 51.84 (mL/min/1.73m2); Glucose 98 mg/dL (74-106); Potassium 4.1 mmol/L (3.5-5.1); Sodium 143 mmol/L (136-145); Total Protein 8.6 g/dL (6.4-8.2)
[2025-02-02 12:58] LABS: Chromogranin A 458 ng/mL (<93)
== END 2025-01-31 03:33 | disposition home or self-care (01) ==
LOC: LBO 03:33
PROVIDERS: PCP Internal Medicine Hematology & Oncology; Visit Provider Internal Medicine Hematology & Oncology
DX: C7B.02 Secondary carcinoid tumors of liver (principal)
CPT/HCPCS: 36415; 80053; 85025; 86316

== ENCOUNTER 2025-01-31 15:11 | Emergency (ER) | payer MEDICARE, MEDICAID, SELFPAY ==
[2025-01-31] VITALS (31 sets, daily range): BP systolic 115–146; BP diastolic 81–107; PULSE 64–136; RESP 13–34; TEMP 36.4–37; O2SAT 94–98
--- NOTE | 2025-01-31 15:00 | RT.EKG_ITS ---
APPROVED REPORT Exam: Resting ECG Reason for Exam: Tachycardia Patient Location: E HR:136 bpm ECG Measurements Heart Rate 136 AXIS MN 102 P 132 QRSd 121 QRS 248 QT 395 T -44 QTc 593 Conclusion Sinus tachycardia...rate> 99 Abnormal T, consider ischemia, diffuse leads...T <-0.20mV, ant/lat/inf
--- NOTE | 2025-01-31 15:30 | DI.CT_ITS ---
Exam(s) CT CHEST PE CTA EXAM: CT CHEST PE CTA CLINICAL HISTORY: dyspnea, hx of PE. TECHNIQUE: Imaging Protocol: CT angiography of the chest was performed using pulmonary embolus tonya col. Multi planar reconstructions were performed. CONTRAST MATERIAL: Intravenous: Omnipaque 350 Contrast volume: 100 cc COMPARISON: No exams were available for comparison FINDINGS: CHEST: PULMONARY ARTERIES: There are no intraluminal filling defects to suggest acute pulmonary emboli. LUNGS: There are no infiltrates nor evidence of pulmonary infarction.. No concerning pulmonary nodul es. There are no pleural effusions. MEDIASTINUM: There is no hilar nor mediastinal adenopathy. CARDIAC: Heart size is upper normal. There is no pericardial effusion.Caliber of the thoracic aorta is within normal limits. There is no significant shift of the interventricular septum. There is, ho wever, contrast reflux into the intrahepatic IVC. PARTIALLY VISUALIZED UPPERMOST ABDOMEN: There are 2 large lesions in the right hepatic lobe; one be c ystic but the other is not and measures approximately 10 x 8 cm. OSSEOUS: No significant osseous lesions.No acute fractures. Chronic wedge my deformity. IMPRESSION: 1. No evidence of acute pulmonary emboli. No evidence of pulmonary infarction.No pleural effusions. 2. Significant lesions in the liver measuring up to 10 cm. Requires dedicated liver imaging with con trast infused MRI. Findings discussed with ER physician 01/31/2025 at 4:50 p.m. RADIATION DOSE DELIVERED: 195.93mGy.cm Total DLP DATA REPOSITORY: All CT scans at this facility are submitted to the National Radiology Data Registry (NRDR) Dose Index Registry (DIR) with the [employer] (ACR). RADIATION OPTIMIZATION: All CT scans at this facility use at least one of these dose optimization te chniques: automated exposure control; mA and/or kV adjustment per patient size (includes targeted exa ms where dose is matched to clinical indication); or iterative reconstruction.
--- NOTE | 2025-01-31 15:43 | ED.GENADUL_ITS ---
Discharge Plan Disposition Patient Disposition: Home Condition: Stable Discharge Details Clinical Impression: Tachycardia, Dehydration Primary Care Provider: Tre Gonzalez ED Provider: Tony Thompson Home Meds and New Rx's Prescriptions: Continued acetaminophen 500 mg tablet 1,000 mg PO Q6H PRN apixaban 5 mg tablet 5 mg PO BID cyanocobalamin (vitamin B-12) 1,000 mcg/mL solution 1,000 mcg IM QMONTH lorazepam 1 mg tablet 1 mg PO Q6H PRN omeprazole 20 mg capsule,delayed release(DR/EC) 20 mg PO DAILY potassium chloride 20 mEq packet 20 meq PO DAILY prochlorperazine maleate 10 mg tablet 10 mg PO Q6H PRN triamcinolone acetonide 0.1 % cream 1 applic topical BID Discharge Instructions Additional Instructions: Your CAT scan did not show any evidence of a clot. You were given IV fluids which have your heart rate so this usually indicates you are dehydrated. Make sure you are drinking plenty of fluids to stay hydrated. If you feel more ill or have severe chest pain or difficulty breathing return to your closest emergency department for reevaluation HPI General Date/Time Provider Initiated Documentation: 01/31/25 15:17 . Limitations to Documentation: no limitations . Information obtained by: patient . History of Present Illness 49 year old M presents to the emergency department with the chief complaint of elevated heart rate, described as moderate, Patient started experiencing this week(s) (1) and it has been constant. No relieving factors improve symptom(s), No exacerbating factors reported . Patient notes no other symptoms. and shortness of breath; denies chest pain and fever/chills. Patient did receive the following treatments prior to arrival, none Related Data Home Medications ?Medication ?Instructions ?Recorded ?Confirmed acetaminophen 500 mg tablet 1,000 mg PO Q6H PRN 01/31/25 01/31/25 apixaban 5 mg tablet 5 mg PO BID 01/31/25 01/31/25 cyanocobalamin (vitamin B-12) 1,000 mcg IM QMONTH 01/31/25 01/31/25 1,000 mcg/mL injection solution lorazepam 1 mg tablet 1 mg PO Q6H PRN 01/31/25 01/31/25 omeprazole 20 mg capsule,delayed 20 mg PO DAILY 01/31/25 01/31/25 release potassium chloride 20 mEq oral 20 meq PO DAILY 01/31/25 01/31/25 packet prochlorperazine maleate 10 mg 10 mg PO Q6H PRN 01/31/25 01/31/25 tablet triamcinolone acetonide 0.1 % 1 applic topical BID 01/31/25 01/31/25 topical cream Allergies Allergy/AdvReac Type Severity Reaction Status Date / Time No Known Allergies Allergy Unverified 01/31/25 16:24 General Stated Complaint: SOB DHEERAJ: 2 Review of Systems All systems reviewed & are unremarkable except as noted in HPI and below Constitutional Constitutional: Denies chills, Denies fever(s) and Denies weakness Cardiovascular Cardiovascular: Denies chest pain and Reports dyspnea Respiratory Respiratory: Denies cough and Reports dyspnea Gastrointestinal Gastrointestinal: Denies abdominal pain, Denies nausea and Denies vomiting Neurologic Neurologic: Denies weakness Exam Const General: no acute distress Orientation: alert HENMT Head: normal to inspection Ears: external ears normal General nose exam: external nose normal Mouth: moist mucous membranes Eyes General: appearance normal, both eyes and all related structures Neck Neck: normal visual inspection Resp Effort & Inspection: normal respiratory effort and able to speak in complete sentences Auscultation: clear to auscultation bilaterally Cardio Jugular venous pressure: no JVD Rate: tachycardic Skin General skin exam: no rashes or lesions noted Neuro General: patient alert and patient oriented x3 Extrem General: normal to inspection Psych Mental Status: mental status grossly normal Course Vital Signs Vital signs: Vital Signs Temperature 36.4 C 01/31/25 15:16 Pulse 136 H 01/31/25 15:16 Respiratory Rate 20 01/31/25 15:16 Blood Pressure 126/81 01/31/25 15:16 Pulse Oximetry 98 01/31/25 15:16 Temperature 36.4 C 01/31/25 15:16 Temperature Source Oral 01/31/25 15:16 Pulse 136 H 01/31/25 15:16 Respiratory Rate 20 01/31/25 15:16 Blood Pressure 126/81 01/31/25 15:16 Pulse Oximetry 98 01/31/25 15:16 Oxygen Delivery Method Room Air 01/31/25 15:16 Oxygen Flow Rate 0 01/31/25 15:16 Medical Decision Making 49-year-old male with a history of carcinoid tumor and gets injections at the cancer center, prior PE on Eliquis but has held it for the past few days because this was to have a tooth removed, comes in from the cancer center with tachycardia with rates in the 130s. He says he has been having dyspnea with exertion for the past week. He denies any chest pain or chest pressure. He is a former smoker. He has been tachycardic in the 130s persistently on arrival. He has no JVD, no leg swelling or calf tenderness. He has clear lung sounds. Given his history we will check CBC, CMP, troponins and CTA of the chest to evaluate for possible PE. Patient CT shows no PE but does have a liver lesion, discussed withhim and he states he and his oncologist are already aware of lesions in his liver but he will follow up with them for further management.. Labs thus far show no emergent findings, delta troponin pending. After IV fluids his heart rate is now in the 90s. He says he does not drink much fluid so I suspect he could be getting dehydrated. If second trop negative we will plan for discharge and follow-up with his PCP and oncology patient continues to feel well and heart rates are in the 80s. Second troponin negative. He is stable for discharge and will follow-up with his oncologist, return precautions given Differential Diagnosis Differential Diagnosis: PE, NSTEMI, dehydration, A-flutter ECG Data Attestation: I personally reviewed and interpreted this ECG (s) as follows: Prior ECG tracings: not available for review Interpretation: Sinus tachycardia, rate of 136, NH 102, no STEMI Quality:SDOH Health Related Social Needs: No Data to Display PFSH All Active Problems (Updated 01/31/25 @ 17:39 by Tony Thompson MD) Dehydration (Acute) Tachycardia (Acute) Social History Smoking risk assessment performed?: No
[2025-01-31] MEDS: Omnipaque 350 MG/ML 100 ML BTL IJ (16:21)
[2025-01-31] MEDS: Normal Saline - Diluent 50 ML VIAL IJ (16:22)
[2025-01-31 16:32] LABS: Abs Immature Grans 0.01 10^3/uL (0.0-0.06); Absolute Basophil Count 0.04 10^3/uL (0.0-0.2); Absolute Eosinophil Count 0.05 10^3/uL (0.0-0.7); Absolute Lymphocyte Count 1.02 10^3/uL (1.2-3.4); Absolute Monocyte Count 0.51 10^3/uL (0.1-0.8); Absolute Neutrophil Count 3.65 10^3/uL (1.2-6.7); Basophils % 0.8 %; Eosinophils % 0.9 %; HCT 42.8 % (40.0-50.0); HGB 14.1 g/dL (13.5-17.5); Immature Grans % 0.2 %; Lymphocytes % 19.3 %; MCH 30.9 pg (27.0-33.0); MCHC 32.9 % (32.0-36.0); MCV 94 fL (80-95); MPV 11.9 fL (8.0-11.0); Monocytes % 9.7 %; Neutrophils % 69.1 %; RBC 4.56 10^6/uL (4.36-5.78); RDW 15.9 % (11.8-14.1); RDW-SD 55.2 fL; WBC 5.28 10^3/uL (4.4-10.8)
[2025-01-31 16:45] LABS: Platelet Count 70 10^3/uL (130-400)
[2025-01-31 16:46] LABS: Diff Comment PLT Morph Reviewed; RBC Morphology Normal
[2025-01-31 16:52] LABS: ALT 16 U/L (16-63); AST 17 U/L (15-37); Alkaline Phosphatase 137 U/L (46-116); Anion Gap 10.9 mmol/L (3-11); BUN 17 mg/dL (7-18); Bilirubin, Total 2.2 mg/dL (0.2-1.0); CO2 22.1 mmol/L (21.0-32.0); CREATININE 1.5 mg/dL (0.70-1.30); Calcium 9.1 mg/dL (8.5-10.1); Chloride 106 mmol/L (98-107); Estimated GFR 56.02 (mL/min/1.73m2); Glucose 121 mg/dL (74-106); Magnesium 1.9 mg/dL; NT-proBNP 535 pg/mL (<300); Potassium 3.9 mmol/L (3.5-5.1); Sodium 139 mmol/L (136-145); Total Protein 8.4 g/dL (6.4-8.2); Troponin I 9 ng/L (<or=76)
[2025-01-31] MEDS: Normal Saline 1,000 ML 1000 ML IV (16:57)
[2025-01-31 18:01] LABS: Troponin I 9 ng/L (<or=76)
== END 2025-01-31 18:38 | disposition home or self-care (01) ==
PROVIDERS: Emergency Medicine Emergency Medical Services; Emergency Provider Emergency Medicine; PCP Internal Medicine Hematology & Oncology
DX: R06.02 Shortness of breath (principal); R00.0 Tachycardia, unspecified; E86.0 Dehydration; Z79.01 Long term (current) use of anticoagulants
CPT/HCPCS: 36415; 71275; 80053; 93005; 96360; 99285; 83735; 83880; 84484; 85025; 86316; 93010; J3490

== ENCOUNTER 2025-02-28 03:49 | Outpatient (CLI) | payer MEDICARE, MEDICAID, SELFPAY ==
[2025-02-28 13:40] LABS: Abs Immature Grans 0.01 10^3/uL (0.0-0.06); Absolute Basophil Count 0.05 10^3/uL (0.0-0.2); Absolute Eosinophil Count 0.05 10^3/uL (0.0-0.7); Absolute Lymphocyte Count 1.13 10^3/uL (1.2-3.4); Absolute Neutrophil Count 3.14 10^3/uL (1.2-6.7); HCT 45.7 % (40.0-50.0); Immature Grans % 0.2 %; Lymphocytes % 23.2 %; MCH 30.9 pg (27.0-33.0); MCHC 32.8 % (32.0-36.0); MCV 94 fL (80-95); Monocytes % 10.2 %; Neutrophils % 64.4 %; RBC 4.86 10^6/uL (4.36-5.78); RDW 15.8 % (11.8-14.1); RDW-SD 54.7 fL; WBC 4.88 10^3/uL (4.4-10.8)
[2025-02-28 13:56] LABS: Platelet Count 70 10^3/uL (130-400)
[2025-02-28 14:16] LABS: ALT 16 U/L (16-63); AST 22 U/L (15-37); Albumin 4.3 g/dL (3.4-5.0); Alkaline Phosphatase 156 U/L (46-116); Anion Gap 10.8 mmol/L (3-11); BUN 17 mg/dL (7-18); Bilirubin, Total 4.1 mg/dL (0.2-1.0); CO2 25.2 mmol/L (21.0-32.0); CREATININE 1.6 mg/dL (0.70-1.30); Calcium 9.6 mg/dL (8.5-10.1); Chloride 103 mmol/L (98-107); Estimated GFR 51.84 (mL/min/1.73m2); Glucose 95 mg/dL (74-106); Potassium 4.2 mmol/L (3.5-5.1); Sodium 139 mmol/L (136-145); Total Protein 8.8 g/dL (6.4-8.2)
[2025-02-28 15:17] LABS: FREE T4 1.19 ng/dL (0.76-1.46)
[2025-03-02 14:02] LABS: Chromogranin A 286 ng/mL (<93)
== END 2025-02-28 03:50 | disposition home or self-care (01) ==
LOC: LBO 03:49
PROVIDERS: PCP Internal Medicine Hematology & Oncology; Visit Provider Internal Medicine Hematology & Oncology
DX: C7B.02 Secondary carcinoid tumors of liver (principal); R00.0 Tachycardia, unspecified
CPT/HCPCS: 36415; 80053; 84439; 84443; 85025; 86316

== ENCOUNTER 2025-02-28 16:11 | Observation (INO) | payer MEDICARE, MEDICAID, SELFPAY ==
[2025-02-28] VITALS (37 sets, daily range): BP systolic 108–133; BP diastolic 78–94; PULSE 47–132; RESP 11–37; TEMP 36.4; O2SAT 94–100
--- NOTE | 2025-02-28 16:00 | RT.EKG_ITS ---
APPROVED REPORT Exam: Resting ECG Reason for Exam: tachycardia Patient Location: E HR:128 bpm ECG Measurements Heart Rate 128 AXIS MI 86 P 0 QRSd 112 QRS 244 QT 328 T 60 QTc 479 Conclusion Sinus tachycardia...rate> 99 Left anterior fascicular block...axis(240,-40), init forces inf Consider anterior infarct...Q >30mS in V2-V5
--- NOTE | 2025-02-28 16:36 | ED.GENADUL_ITS ---
Discharge Plan Disposition Patient Disposition: Admit to [facility] Condition: Stable Discharge Details Chief Complaint: Arrhythmia Clinical Impression: Atrial flutter with rapid ventricular response Primary Care Provider: Tre Gonzalez ED Provider: Paul Burrell Home Meds and New Rx's Prescriptions: No Action acetaminophen 500 mg tablet 1,000 mg PO Q6H PRN apixaban 5 mg tablet 5 mg PO BID cyanocobalamin (vitamin B-12) 1,000 mcg/mL solution 1,000 mcg IM QMONTH lorazepam 1 mg tablet 1 mg PO Q6H PRN omeprazole 20 mg capsule,delayed release(DR/EC) 20 mg PO DAILY potassium chloride 20 mEq packet 20 meq PO DAILY prochlorperazine maleate 10 mg tablet 10 mg PO Q6H PRN triamcinolone acetonide 0.1 % cream 1 applic topical BID HPI General Date/Time Provider Initiated Documentation: 02/28/25 16:17 . HPI Narrative: 49 year-old male presents to ED today by POV/ambulating, [facility], with a chief complaint of tachycardia- has happened before a few weeks ago, chalked up to dehydration with onset while getting infusion today, arrives with IV bag in hand hooked up to his arm. Quality described as no chest pains or palpitations, no radiation to shortness of breath, nausea/vomiting, cough, endorses hot flashes, denies altered mentation, no hemoptysis. Severity is described as mild or 0/10. Palliating factors include nothing specific attempted. Provoking factors include nothing specific. Events leading up to the incident/Associated Symptoms: Patient denies history of arrhythmia or heart disease. Patient not anticoagulated. Related Data Home Medications ?Medication ?Instructions ?Recorded ?Confirmed acetaminophen 500 mg tablet 1,000 mg PO Q6H PRN 01/31/25 01/31/25 apixaban 5 mg tablet 5 mg PO BID 01/31/25 01/31/25 cyanocobalamin (vitamin B-12) 1,000 mcg IM QMONTH 01/31/25 01/31/25 1,000 mcg/mL injection solution lorazepam 1 mg tablet 1 mg PO Q6H PRN 01/31/25 01/31/25 omeprazole 20 mg capsule,delayed 20 mg PO DAILY 01/31/25 01/31/25 release potassium chloride 20 mEq oral 20 meq PO DAILY 01/31/25 01/31/25 packet prochlorperazine maleate 10 mg 10 mg PO Q6H PRN 01/31/25 01/31/25 tablet triamcinolone acetonide 0.1 % 1 applic topical BID 01/31/25 01/31/25 topical cream Allergies Allergy/AdvReac Type Severity Reaction Status Date / Time No Known Allergies Allergy Unverified 01/31/25 16:24 General Stated Complaint: Arrhythmia DHEERAJ: 3 Review of Systems All systems reviewed & are unremarkable except as noted in HPI and below Exam Narrative Exam Narrative: GENERAL APPEARANCE: Well-nourished, non-toxic, awake and alert, atraumatic, no acute distress. SKIN: Warm, pink, dry, intact, without rashes/lesions/ulcerations. HEAD: Normocephalic, atraumatic, normal hair distribution for gender/age. EYES: Normal conjunctiva, no exudates on lids/lashes. ENT: Nares patent, no circumoral cyanosis, no facial swelling NECK: Supple, trachea midline, painless cervical ROM. LUNGS/CHEST: Lungs CTA bilaterally- no rhonchi/rales/wheezes diffusely, non- labored respirations, normal A/P diameter, symmetrical expansion, no chest wall deformity HEART (CV/PV): Regular rate and rhythm without murmur- tachycardic, no peripheral edema, no JVD. ABDOMEN: Soft, non-distended, no guarding, no CVA tenderness to percussion bilaterally. MSK: Normal ROM, no swelling/deformity to bilateral UEs or LEs, moving all extremities without weakness, no cyanosis, spine midline without tenderness, normal curvature. NEURO: Mental Status AAOx4 - alert to person, place, time, events No facial droop, no forehead involvement. Motor: No focal weakness - strength 5/5 in bilateral UEs and LEs, proximal and distal, symmetric. Sensory: sensation intact to light touch globally. Gait normal: patient ambulated without ataxia into ED room. PSYCH: euthymic, cooperative, pleasant, appropriate speech Course Vital Signs Vital signs: Vital Signs Temperature 36.4 C L 02/28/25 16:16 Pulse 132 H 02/28/25 16:16 Respiratory Rate 20 02/28/25 16:16 Temperature 36.4 C L 02/28/25 16:16 Pulse 132 H 02/28/25 16:16 Respiratory Rate 20 02/28/25 16:16 Pain Level 0 02/28/25 16:16 Medical Decision Making This dictation utilizes [id number] dictation software and may contain unedited grammatical errors. 49 year-old male presents to ED today by POV/ambulating, [facility], with a chief complaint of tachycardia- has happened before a few weeks ago, chalked up to dehydration with onset while getting infusion today, arrives with IV bag in hand hooked up to his arm. Quality described as no chest pains or palpitations, no radiation to shortness of breath, nausea/vomiting, cough, endorses hot flashes, denies altered mentation, no hemoptysis. Severity is described as mild or 0/10. Palliating factors include nothing specific attempted. Provoking factors include nothing specific. Events leading up to the incident/Associated Symptoms: Patient denies history of arrhythmia or heart disease. Patients' medical history: Carcinoid tumor of liver with mets, history of PE, thrombocytopenia. Family and social history: Lives at home with family, denies EtOH use, no illicit substance use. Pertinent exam findings / vital signs include benign cardiopulmonary exam save for tachycardic on arrival, benign abdomen, neuro intact. Differential / pathologies of concern include ACS, arrhythmia, dehydration, infection, medication side effect. Diagnostic studies of: - CBC, CMP, lactate, D-dimer, magnesium, serial troponins, lipase, TSH, UA, serial EKGs, chest x-ray. - CBC shows no leukocytosis, no anemia - D-dimer 696, is elevated but years criteria negative, do not need CTA at this time, patient already on Eliquis - Lactate negative - CMP shows no actionable abnormality with baseline creatinine of 1.5, chronically elevated bilirubin at his baseline of 3.8 - Serial troponins negative - Lipase within normal limits - TSH elevated, T4 pending at time of admission - UA shows small amounts of blood, no evidence of UTI - Initial EKG shows fairly regular sinus tachycardia 128 bpm there are some sawtooth like patterns. Within the rhythm, no ST depressions or reciprocal elevations, slight left axis deviation - Repeat EKG shows atrial flutter at a rate of 69 with no new left bundle branch block, no major ST changes - CXR pending at time of admission Interventions of: -1 L IVF NS. 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 He was sinus tach on arrival at 128 but I did note throughout his visit he was having labile heart rate down into the 90s and lower, question for new onset A- fib or flutter, repeat EKG shows atrial flutter, he is already on Eliquis due to history of PE, I do not think he needs any medical intervention and would likely meet [id number] score regardless for anticoagulation. He likely needs an ech ocardiogram for his new onset atrial fibrillation and inpatient cardiology consult for any other concerns. The patient is on board with this plan and did not need any acute interventions and had no chest pain throughout ED stay. Disposition of Atrial Flutter with Rapid Ventricular Response. Patient verbalized understanding of the plan and return to ED criteria and engaged in shared decision making. Medical Records Medical records reviewed: Yes I reviewed the patient's medical records. Imaging Data Radiologic Study: Attestation: I personally reviewed and interpreted this imaging study as follows: Imaging: X-Ray Lab Data Lab results reviewed: Yes I reviewed the patient's lab results. Labs: Laboratory Tests Range/Units 02/28/25 02/28/25 02/28/25 17:15 17:58 18:15 WBC (4.4-10.8) 10^3/uL 4.68 RBC (4.36-5.78) 10^6/uL 4.35 L Hgb (13.5-17.5) g/dL 13.6 Hct (40.0-50.0) % 40.3 MCV (80-95) fL 93 MCH (27.0-33.0) pg 31.3 MCHC (32.0-36.0) % 33.7 RDW (11.8-14.1) % 15.6 H Plt Count (130-400) 10^3/uL 57 L MPV (8.0-11.0) fL Immature Gran % % 0.4 Neutrophils % % 71.0 Lymphocytes % % 18.4 Monocytes % % 9.4 Eosinophils % % 0.2 Basophils % % 0.6 Nucleated RBC % (0.0-0.3) % 0.0 Absolute Neutrophils (1.2-6.7) 10^3/uL 3.32 Absolute Lymphocytes (1.2-3.4) 10^3/uL 0.86 L Absolute Monocytes (0.1-0.8) 10^3/uL 0.44 Absolute Eosinophils (0.0-0.7) 10^3/uL 0.01 Absolute Basophils (0.0-0.2) 10^3/uL 0.03 RBC Morphology Normal D-Dimer (<500) ng/mlFEU 696 H VBG Lactate (<or=2.0) mmol/L 1.3 Sodium (136-145) mmol/L 138 Potassium (3.5-5.1) mmol/L 4.1 Chloride (98-107) mmol/L 104 Carbon Dioxide (21.0-32.0) mmol/L 21.9 Anion Gap (3-11) mmol/L 12.1 H BUN (7-18) mg/dL 17 Creatinine (0.70-1.30) mg/dL 1.5 H Est GFR (CKD-EPI 2020) (mL/min/1.73m2) 56.02 Glucose (74-106) mg/dL 120 H Calcium (8.5-10.1) mg/dL 8.9 Magnesium (1.8-2.4) mg/dL 1.8 Total Bilirubin (0.2-1.0) mg/dL 3.8 H AST (15-37) U/L 18 ALT (16-63) U/L 12 L Alkaline Phosphatase (46-116) U/L 140 H Troponin I (<or=76) ng/L 6 7 Total Protein (6.4-8.2) g/dL 7.9 Albumin (3.4-5.0) g/dL 3.8 Lipase (<78) U/L 52 TSH (0.36-3.74) uIU/mL 5.40 H Urine Color (Yellow) Yellow Urine Clarity (Clear) Clear Urine pH (5-8) 5.5 Ur Specific [place] (1.005-1.025) 1.015 Urine Protein (Neg-Trace) mg/dL Negative Urine Ketones (Negative) mg/dL Negative Urine Blood (Negative) Small H Urine Nitrite (Negative) Negative Urine Bilirubin (Negative) Negative Urine Urobilinogen (Up to 0.2) mg/dL 4.0 H Ur Leukocyte Esterase (Negative) Negative Urine RBC (0-2) HPF 0-2 Urine WBC (0-5) HPF 0-2 Ur Epithelial Cells (Negative) HPF Rare Urine Crystals (Negative) HPF Negative Urine Bacteria (Negative) HPF Negative Urine Casts (Negative) LPF Negative Urine Mucus (Negative) Negative Ur Culture Indicated? No Urine Glucose (Negative) mg/dL Negative Quality:SDOH Health Related Social Needs: No Data to Display PFSH All Active Problems (Updated 02/28/25 @ 18:55 by Maulik Cleveland) Atrial flutter with rapid ventricular response (Acute) CKD (chronic kidney disease) (Chronic) Dehydration (Acute) Tachycardia (Acute) Social History Smoking/Tobacco Use Status: Never Smoking risk assessment performed?: Yes Alcohol Intake: never Do you feel safe at home: Yes Do you feel safe in your relationship?: Yes
[2025-02-28 17:22] LABS: Lactate 1.3 mmol/L (<or=2.0)
[2025-02-28 17:26] LABS: Abs Immature Grans 0.02 10^3/uL (0.0-0.06); Absolute Basophil Count 0.03 10^3/uL (0.0-0.2); Absolute Eosinophil Count 0.01 10^3/uL (0.0-0.7); Absolute Lymphocyte Count 0.86 10^3/uL (1.2-3.4); Absolute Monocyte Count 0.44 10^3/uL (0.1-0.8); Absolute Neutrophil Count 3.32 10^3/uL (1.2-6.7); Basophils % 0.6 %; Eosinophils % 0.2 %; HCT 40.3 % (40.0-50.0); HGB 13.6 g/dL (13.5-17.5); Immature Grans % 0.4 %; Lymphocytes % 18.4 %; MCH 31.3 pg (27.0-33.0); MCHC 33.7 % (32.0-36.0); MCV 93 fL (80-95); Monocytes % 9.4 %; RBC 4.35 10^6/uL (4.36-5.78); RDW 15.6 % (11.8-14.1); RDW-SD 53.7 fL; WBC 4.68 10^3/uL (4.4-10.8)
[2025-02-28 17:47] LABS: ALT 12 U/L (16-63); AST 18 U/L (15-37); Albumin 3.8 g/dL (3.4-5.0); Alkaline Phosphatase 140 U/L (46-116); Anion Gap 12.1 mmol/L (3-11); BUN 17 mg/dL (7-18); Bilirubin, Total 3.8 mg/dL (0.2-1.0); CO2 21.9 mmol/L (21.0-32.0); CREATININE 1.5 mg/dL (0.70-1.30); Calcium 8.9 mg/dL (8.5-10.1); Chloride 104 mmol/L (98-107); Estimated GFR 56.02 (mL/min/1.73m2); Glucose 120 mg/dL (74-106); Lipase 52 U/L (<78); Magnesium 1.8 mg/dL (1.8-2.4); Potassium 4.1 mmol/L (3.5-5.1); Sodium 138 mmol/L (136-145); Total Protein 7.9 g/dL (6.4-8.2); Troponin I 6 ng/L (<or=76)
[2025-02-28 17:49] LABS: Diff Comment PLT Morph Reviewed; Platelet Count 57 10^3/uL (130-400); RBC Morphology Normal
[2025-02-28 17:52] LABS: D-Dimer 696 ng/mlFEU (<500)
[2025-02-28 18:09] LABS: Bilirubin Negative (Negative); Blood Small (Negative); Clarity Clear (Clear); Glucose Negative (Negative); Ketones Negative (Negative); Leukocyte Esterase Negative (Negative); Nitrite Negative (Negative); Specific Gravity 1.015 (1.005-1.025); pH 5.5 (5-8)
[2025-02-28 18:15] LABS: Bacteria Negative HPF (Negative); C & S Indicated? No; Casts Negative LPF (Negative); Crystals Negative HPF (Negative); Epithelial Cells Rare HPF (Negative); Mucus Negative (Negative); RBC 0-2 HPF (0-2); WBC 0-2 HPF (0-5)
--- NOTE | 2025-02-28 18:15 | RT.EKG_ITS ---
APPROVED REPORT Exam: Resting ECG Reason for Exam: a fib? Patient Location: E HR:69 bpm ECG Measurements Heart Rate 69 AXIS CA [id number] P [id number] QRSd 122 QRS 235 QT 505 T 84 QTc 580 Conclusion Atrial flutter...A-rate 254 Ventricular premature complex...V complex w/ short R-R interval Nonspecific intraventricular conduction delay...QRSd >115mS, not LBBB/RBBB ST elevation secondary to atrial flutter Prolonged QT interval...QTc >500mS
--- NOTE | 2025-02-28 18:30 | DI.RAD_ITS ---
Exam(s) XR CHEST 2V PA LATERAL EXAM: XR CHEST 2V PA LATERAL CLINICAL HISTORY: tachycardia TECHNIQUE: 2D digital imaging was performed. Two views. COMPARISON: No exams were available for comparison FINDINGS: HEART: Normal size. Aorta: Not dilated. PULMONARY VASCULATURE: Normal. MEDIASTINUM: Unremarkable. LUNGS: Suboptimally inflated but clear. PLEURAL SPACE: No pleural effusion or pneumothorax. BONE:Unremarkable for age. SOFT TISSUES: Unremarkable. IMPRESSION: No acute abnormality. DATA REPOSITORY: RADIATION DOSE DELIVERED:
[2025-02-28] MEDS: Normal Saline 1,000 ML 1000 ML IV (18:33)
[2025-02-28 18:39] LABS: Troponin I 7 ng/L (<or=76)
--- NOTE | 2025-02-28 18:45 | HPE_ITS ---
Date of service: 02/28/25 Time of Service: 18:46 Assessment and Plan Assessment and plan (1) Atrial flutter with rapid ventricular response: Start date: 02/28/25 Status: Acute Assessment and plan: This is a 49-year-old gentleman with unfortunate diagnosis stage IV carcinoid tumor now with new onset atrial flutter presenting with tachycardia and consideration of dehydration while on chemotherapy. He did receive a 1000 cc bolus of normal saline and continue on infusion normal saline overnight. He does have CKD which appears to be at baseline. He will be admitted for rate control and advancement of metoprolol for treatment of his atrial flutter with follow-up echocardiogram. He will need to see cardiology as well. He appears stable with no ischemic changes on EKG and negative troponins. He remains a full code. (2) Pulmonary embolism: Status: Chronic Assessment and plan: Chronically on Eliquis which will be continued. There is no evidence of acute PE. 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 He chronically is on Eliquis for PE in the past and this will be continued. D-dimer was not consistent with high risk for acute PE. Patient does have thrombocytopenia and elevated PT/INR with his liver disease and would not be a candidate for other anticoagulation for DVT prophylaxis. 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 Continue to monitor labs. (5) CKD (chronic kidney disease): Status: Chronic Assessment and plan: Stable with trending labs on gentle IV hydration and follow-up echocardiogram. BNP is slightly elevated but decreased. (6) GERD (gastroesophageal reflux disease): Status: Chronic Assessment and plan: Continue PPI. (7) Anxiety disorder: Status: Chronic Assessment and plan: Continue as needed benzodiazepine. (8) B12 deficiency: Status: Chronic Assessment and plan: Continue supplement. Patient is not anemic. History of Present Illness History of Present Illness Chief Complaint: Rapid heart rate with sensation of palpitations in neck Narrative: This is a 49-year-old male patient who has a history of Crohn disease diagnosed in 2011 with abdominal surgery in 2013 finding carcinoid tumor in the area of the appendix. Since that diagnosis he has been on treatment for carcinoid tumor and this has metastasized to the liver with some large tumors and also to the bone. 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 He was then the infusion clinic locally where he was found to have tachycardia or new onset and was having palpitations feeling his heartbeat in his neck. He had no chest pain. He reported to the ED for evaluation was found to have atrial flutter with rapid ventricular response near 130 by EKG showing sawtooth baseline with flutter requiring no interventions for rate control. He had negative troponins and felt better with his heart rate below 100. He was admitted for treatment of his new onset a flutter with low-dose metoprolol as blood pressure tolerated. He also would have an echocardiogram in the morning. He is already on apixaban for a remote PE without provocation and this is lifelong treatment. His carcinoid tumor has progressed very slowly over the years prognosis fair. He is a full code. Review of Systems Narrative: 13 point review of systems otherwise unrevealing or stable. 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) Pulmonary embolism (Chronic) Hypokalemia due to excessive gastrointestinal loss of potassium (Chronic) B12 deficiency (Chronic) Anxiety disorder (Chronic) GERD (gastroesophageal reflux disease) (Chronic) Atrial flutter with rapid ventricular response (Acute) CKD (chronic kidney disease) (Chronic) Dehydration (Acute) Tachycardia (Acute) Social History Smoking/Tobacco Use Status: Never Smoking risk assessment performed?: Yes Alcohol Intake: never Housing: house Do you feel safe at home: Yes Do you feel safe in your relationship?: Yes Meds Allergies and Home Medications Allergies Allergy/AdvReac Type Severity Reaction Status Date / Time No Known Allergies Allergy Verified 02/28/25 20:28 Home Medications ?Medication ?Instructions ?Recorded ?Confirmed ?Type acetaminophen 500 mg tablet 1,000 mg PO Q6H PRN 01/31/25 02/28/25 History apixaban 5 mg tablet 5 mg PO BID 01/31/25 02/28/25 History cyanocobalamin (vitamin B-12) 1,000 mcg IM QMONTH 01/31/25 02/28/25 History 1,000 mcg/mL injection solution lorazepam 1 mg tablet 1 mg PO Q6H PRN 01/31/25 02/28/25 History omeprazole 20 mg capsule,delayed 20 mg PO DAILY 01/31/25 02/28/25 History release potassium chloride 20 mEq oral 20 meq PO DAILY 01/31/25 02/28/25 History packet prochlorperazine maleate 10 mg 10 mg PO Q6H PRN 01/31/25 02/28/25 History tablet metoprolol succinate 50 mg 50 mg PO DAILY #30 tabs 03/01/25 Rx tablet,extended release 24 hr Exam Narrative Exam Narrative: General: Patient is moderately morbidly obese, alert and oriented x 3 and very talkative with pressured speech. He is in no acute distress. He is alert and oriented x 3. HEENT: Normocephalic, eyes with pupils equal and reactive to light symmetrically, extraocular movement intact and sclera anicteric. Oropharynx with dry mucosa and poor dentition with missing teeth and carious teeth. Neck: Supple without JVD. Back: Stooped posture without CVA tenderness. Lungs: Fair aeration with clear to auscultation and percussion. No focalizing rales or rhonchi. No expiratory wheeze. Heart: Regular rhythm and rate with monitor showing atrial flutter. Previously systolic murmur left sternal border. No gallop or rub. Abdomen: Obese contour, soft and nontender to palpation no palpable hepatosplenomegaly. No focalizing guarding or rebound. Bowel sounds positive all quadrants. Genitalia/rectal: Exam deferred. Extremities: 2+ nonpitting edema ankles and feet with fair capillary refill. No clubbing or cyanosis. Skin: Normal color, warm and dry. Neuro: Cranial nerves II through XII gross intact, no focalized motor deficits and no tremor. Psych: Slightly anxious with pressured speech. Normal mood. No abnormal thought processes. Remote and recent memory intact. Results Imaging Imaging Studies: Exam: XR Chest Exam date and time: 02/28/2025 20:00 Age: 49 years old Clinical indication: Other: Tachycardia TECHNIQUE: Imaging protocol: Radiologic exam of the chest. Views: 2 views. COMPARISON: CT CHEST PE CTA 01/31/2025 16:23 FINDINGS: Lungs: Interstitial and vascular crowding appearing technique related. No airspace consolidation. Pleural spaces: No pleural effusion. No pneumothorax. Heart/Mediastinum: No cardiomegaly. Bones/joints: No acute fracture. IMPRESSION: No acute cardiopulmonary pathology. Labs 03/01/25 06:48 03/01/25 06:48 Labs: Laboratory Results - last 24 hr 02/28/25 02/28/25 02/28/25 17:15 17:58 18:15 WBC 4.68 RBC 4.35 L Hgb 13.6 Hct 40.3 MCV 93 MCH 31.3 MCHC 33.7 RDW 15.6 H Plt Count 57 L MPV Immature Gran % 0.4 Neutrophils % 71.0 Lymphocytes % 18.4 Monocytes % 9.4 Eosinophils % 0.2 Basophils % 0.6 Nucleated RBC % 0.0 Absolute Neutrophils 3.32 Absolute Lymphocytes 0.86 L Absolute Monocytes 0.44 Absolute Eosinophils 0.01 Absolute Basophils 0.03 RBC Morphology Normal D-Dimer 696 H VBG Lactate 1.3 Sodium 138 Potassium 4.1 Chloride 104 Carbon Dioxide 21.9 Anion Gap 12.1 H BUN 17 Creatinine 1.5 H Est GFR (CKD-EPI 2020) 56.02 Glucose 120 H Calcium 8.9 Magnesium 1.8 Total Bilirubin 3.8 H AST 18 ALT 12 L Alkaline Phosphatase 140 H Troponin I 6 7 Total Protein 7.9 Albumin 3.8 Lipase 52 TSH 5.40 H Urine Color Yellow Urine Clarity Clear Urine pH 5.5 Ur Specific [place] 1.015 Urine Protein Negative Urine Ketones Negative Urine Blood Small H Urine Nitrite Negative Urine Bilirubin Negative Urine Urobilinogen 4.0 H Ur Leukocyte Esterase Negative Urine RBC 0-2 Urine WBC 0-2 Ur Epithelial Cells Rare Urine Crystals Negative Urine Bacteria Negative Urine Casts Negative Urine Mucus Negative Ur Culture Indicated? No Urine Glucose Negative Last Vital Signs Temp 36.4 C L 02/28/25 16:16 Pulse 69 02/28/25 18:40 Resp 21 02/28/25 18:40 BP 115/80 02/28/25 18:37 Pulse Ox 97 02/28/25 18:40 Time Spent Time spent with Patient: >75 minutes Time was spent: preparing to see the patient(eg.review tests), obtaining and/or reviewing separately otained hiistory, ordering medications,tests, procedures, indepentently interpreting results, counseling the patient and care coordination
--- NOTE | 2025-02-28 20:24 | DI.VRAD_ITS ---
PROCEDURE INFORMATION: Exam: XR Chest Exam date and time: 02/28/2025 20:00 Age: 49 years old Clinical indication: Other: Tachycardia TECHNIQUE: Imaging protocol: Radiologic exam of the chest. Views: 2 views. COMPARISON: CT CHEST PE CTA 01/31/2025 16:23 FINDINGS: Lungs: Interstitial and vascular crowding appearing technique related. No airspace consolidation. Pleural spaces: No pleural effusion. No pneumothorax. Heart/Mediastinum: No cardiomegaly. Bones/joints: No acute fracture. IMPRESSION: No acute cardiopulmonary pathology. Dictated and Authenticated by: Fanta Landon MD. Orderin Ashanti Miller MD
[2025-02-28 20:52] LABS: COVID-19 PCR Negative (Negative); Influenza A PCR Negative (Negative); Influenza B PCR Negative (Negative); RSV PCR Negative (Negative)
[2025-02-28 20:53] LABS: Source Nasopharynx
--- NOTE | 2025-02-28 21:00 | W.PC.ACHO ---
Registration Status: Primary Language: Preferred Language: ED Information & Data Chief Complaint Arrhythmia 02/28/25 16:37 Triage Note pt sent from [facility] 02/28/25 16:16 for tachycardia. HR 132 on ekg in triage. pt having no s/s, states this has happened before and was related to dehydration last time. Pt received 1 L of fluids at [facility] and arrived w/ IV in hand Most Recent Vital Signs Temperature 36.4 C L 02/28/25 16:16 Pulse 60 02/28/25 20:20 Pulse 90 02/28/25 20:20 Respiratory Rate 15 02/28/25 20:20 Blood Pressure 122/90 02/28/25 20:15 Blood Pressure Mean 97 02/28/25 20:15 Pulse Oximetry 98 02/28/25 20:20 Pain Level 0 02/28/25 16:16 Allergies No Known Allergies Allergy (Verified 02/28/25 20:28) IV IV Catheter Type [Left Wrist] Saline Lock IV Catheter Gauge [Left Wrist] 24 Diagnostics 02/28/25 02/28/25 02/28/25 Range/Units 20:05 18:15 17:58 WBC (4.4-10.8) 10^3/uL RBC (4.36-5.78) 10^6/uL Hgb (13.5-17.5) g/dL Hct (40.0-50.0) % MCV (80-95) fL MCH (27.0-33.0) pg MCHC (32.0-36.0) % RDW (11.8-14.1) % Plt Count (130-400) 10^3/uL MPV (8.0-11.0) fL Immature Gran % % Neutrophils % % Lymphocytes % % Monocytes % % Eosinophils % % Basophils % % Nucleated RBC % (0.0-0.3) % Absolute Neutrophils (1.2-6.7) 10^3/uL Absolute Lymphocytes (1.2-3.4) 10^3/uL Absolute Monocytes (0.1-0.8) 10^3/uL Absolute Eosinophils (0.0-0.7) 10^3/uL Absolute Basophils (0.0-0.2) 10^3/uL RBC Morphology D-Dimer (<500) ng/mlFEU VBG Lactate (<or=2.0) mmol/L Sodium (136-145) mmol/L Potassium (3.5-5.1) mmol/L Chloride (98-107) mmol/L Carbon Dioxide (21.0-32.0) mmol/L Anion Gap (3-11) mmol/L BUN (7-18) mg/dL Creatinine (0.70-1.30) mg/dL Est GFR (CKD-EPI 2020) (mL/min/1.73m2) Glucose (74-106) mg/dL Calcium (8.5-10.1) mg/dL Magnesium (1.8-2.4) mg/dL Total Bilirubin (0.2-1.0) mg/dL AST (15-37) U/L ALT (16-63) U/L Alkaline Phosphatase (46-116) U/L Troponin I 7 (<or=76) ng/L Total Protein (6.4-8.2) g/dL Albumin (3.4-5.0) g/dL Lipase (<78) U/L TSH (0.36-3.74) uIU/mL Urine Color Yellow (Yellow) Urine Clarity Clear (Clear) Urine pH 5.5 (5-8) Ur Specific [place] 1.015 (1.005-1.025) Urine Protein Negative (Neg-Trace) mg/dL Urine Ketones Negative (Negative) mg/dL Urine Blood Small H (Negative) Urine Nitrite Negative (Negative) Urine Bilirubin Negative (Negative) Urine Urobilinogen 4.0 H (Up to 0.2) mg/dL Ur Leukocyte Esterase Negative (Negative) Urine RBC 0-2 (0-2) HPF Urine WBC 0-2 (0-5) HPF Ur Epithelial Cells Rare (Negative) HPF Urine Crystals Negative (Negative) HPF Urine Bacteria Negative (Negative) HPF Urine Casts Negative (Negative) LPF Urine Mucus Negative (Negative) Ur Culture Indicated? No Urine Glucose Negative (Negative) mg/dL COVID-19 Source Nasopharynx SARS-CoV-2 (PCR) Negative (Negative) Influenza Type A (PCR) Negative (Negative) Influenza Type B (PCR) Negative (Negative) RSV (PCR) Negative (Negative) 02/28/25 Range/Units 17:15 WBC 4.68 (4.4-10.8) 10^3/uL RBC 4.35 L (4.36-5.78) 10^6/uL Hgb 13.6 (13.5-17.5) g/dL Hct 40.3 (40.0-50.0) % MCV 93 (80-95) fL MCH 31.3 (27.0-33.0) pg MCHC 33.7 (32.0-36.0) % RDW 15.6 H (11.8-14.1) % Plt Count 57 L (130-400) 10^3/uL MPV (8.0-11.0) fL Immature Gran % 0.4 % Neutrophils % 71.0 % Lymphocytes % 18.4 % Monocytes % 9.4 % Eosinophils % 0.2 % Basophils % 0.6 % Nucleated RBC % 0.0 (0.0-0.3) % Absolute Neutrophils 3.32 (1.2-6.7) 10^3/uL Absolute Lymphocytes 0.86 L (1.2-3.4) 10^3/uL Absolute Monocytes 0.44 (0.1-0.8) 10^3/uL Absolute Eosinophils 0.01 (0.0-0.7) 10^3/uL Absolute Basophils 0.03 (0.0-0.2) 10^3/uL RBC Morphology Normal D-Dimer 696 H (<500) ng/mlFEU VBG Lactate 1.3 (<or=2.0) mmol/L Sodium 138 (136-145) mmol/L Potassium 4.1 (3.5-5.1) mmol/L Chloride 104 (98-107) mmol/L Carbon Dioxide 21.9 (21.0-32.0) mmol/L Anion Gap 12.1 H (3-11) mmol/L BUN 17 (7-18) mg/dL Creatinine 1.5 H (0.70-1.30) mg/dL Est GFR (CKD-EPI 2020) 56.02 (mL/min/1.73m2) Glucose 120 H (74-106) mg/dL Calcium 8.9 (8.5-10.1) mg/dL Magnesium 1.8 (1.8-2.4) mg/dL Total Bilirubin 3.8 H (0.2-1.0) mg/dL AST 18 (15-37) U/L ALT 12 L (16-63) U/L Alkaline Phosphatase 140 H (46-116) U/L Troponin I 6 (<or=76) ng/L Total Protein 7.9 (6.4-8.2) g/dL Albumin 3.8 (3.4-5.0) g/dL Lipase 52 (<78) U/L TSH 5.40 H (0.36-3.74) uIU/mL Urine Color (Yellow) Urine Clarity (Clear) Urine pH (5-8) Ur Specific [place] (1.005-1.025) Urine Protein (Neg-Trace) mg/dL Urine Ketones (Negative) mg/dL Urine Blood (Negative) Urine Nitrite (Negative) Urine Bilirubin (Negative) Urine Urobilinogen (Up to 0.2) mg/dL Ur Leukocyte Esterase (Negative) Urine RBC (0-2) HPF Urine WBC (0-5) HPF Ur Epithelial Cells (Negative) HPF Urine Crystals (Negative) HPF Urine Bacteria (Negative) HPF Urine Casts (Negative) LPF Urine Mucus (Negative) Ur Culture Indicated? Urine Glucose (Negative) mg/dL COVID-19 Source SARS-CoV-2 (PCR) (Negative) Influenza Type A (PCR) (Negative) Influenza Type B (PCR) (Negative) RSV (PCR) (Negative) Intake and Output - 24 Hour Total 02/28/25 16:11 thru 02/28/25 17:21 Intake Total 10 Balance 10 Weight 135.171 kg Intake: IV 10 Falls Risk Assessment History of Falls Previous History 02/28/25 18:19 Contributing Factors Impairments 02/28/25 18:19 Ambulatory Aids Uses ambulatory device 02/28/25 18:19 Tubes/Lines With any additional score 02/28/25 18:19 Gait Evaluation W/no contributing factors 02/28/25 18:19 Cognition No cognitive impairment 02/28/25 18:19 Fall Total Score 63 02/28/25 18:19 Level of Risk High Risk 02/28/25 18:19 Problems (Last Reviewed 02/28/25 @ 18:46 by Maulik Cleveland) Pulmonary embolism (Chronic) Hypokalemia due to excessive gastrointestinal loss of potassium (Chronic) B12 deficiency (Chronic) Anxiety disorder (Chronic) GERD (gastroesophageal reflux disease) (Chronic) Atrial flutter with rapid ventricular response (Acute) CKD (chronic kidney disease) (Chronic) v v v v v v v v v Sending and/or Receiving Nurses: Please use comment section below to note any information pertinent to the patient hand-off not included above. Information / Comments: Report taken from [employer] Celia with cardiac problem, admit for A Flutter, Cardiac work ups done and everything negative. Sent by [facility] center with heart rate of 130's. Troponin is flat. Patient is alert and oriented x 3. All questions ask answered. Report received from:
[2025-02-28 21:41] LABS: FREE T4 1.19 ng/dL (0.76-1.46); NT-proBNP 364 pg/mL (<300)
[2025-02-28] MEDS: Normal Saline 1,000 ML 125 ML IV (21:47)
[2025-02-28 21:56] LABS: INR 1.3 (0.9-1.1); Prothrombin Time 12.9 sec (9.1-11.1)
[2025-02-28] MEDS: Apixaban 5 MG TAB PO (21:56)
[2025-02-28] MEDS: MAGNESIUM SULFATE 2 GM/50 ML BAG IV_INF (21:56)
[2025-02-28] MEDS: Normal Saline Flush 10 ML SYR IVP (21:57)
[2025-03-01] MEDS: Metoprolol 12.5 MG TAB PO ×3 (00:18→12:30)
[2025-03-01 02:59] VITALS: BP 110/93; PULSE 62; RESP 20; TEMP 36.7; O2SAT 96
[2025-03-01 07:08] LABS: HGB 13.3 g/dL (13.5-17.5); MCH 31.4 pg (27.0-33.0); MCHC 33.3 % (32.0-36.0); MCV 94 fL (80-95); MPV 12.2 fL (8.0-11.0); RBC 4.24 10^6/uL (4.36-5.78); RDW 15.9 % (11.8-14.1); RDW-SD 55.3 fL; WBC 3.96 10^3/uL (4.4-10.8)
[2025-03-01 07:45] LABS: Platelet Count 56 10^3/uL (130-400)
[2025-03-01 07:47] VITALS: BP 102/86; PULSE 68; RESP 16; TEMP 36.9; O2SAT 96
[2025-03-01 07:56] LABS: ALT 13 U/L (16-63); AST 20 U/L (15-37); Albumin 3.7 g/dL (3.4-5.0); Alkaline Phosphatase 138 U/L (46-116); Anion Gap 8.9 mmol/L (3-11); BUN 14 mg/dL (7-18); Bilirubin, Total 3.8 mg/dL (0.2-1.0); CO2 25.1 mmol/L (21.0-32.0); CREATININE 1.5 mg/dL (0.70-1.30); Calcium 8.9 mg/dL (8.5-10.1); Chloride 106 mmol/L (98-107); Estimated GFR 56.02 (mL/min/1.73m2); Glucose 93 mg/dL (74-106); Magnesium 2.2 mg/dL (1.8-2.4); Potassium 4.2 mmol/L (3.5-5.1); Sodium 140 mmol/L (136-145); Total Protein 7.6 g/dL (6.4-8.2)
[2025-03-01] MEDS: Omeprazole 20 MG CAPCR PO (07:57)
[2025-03-01] MEDS: Normal Saline 1,000 ML 125 ML IV (07:57)
[2025-03-01] MEDS: Apixaban 5 MG TAB PO (07:57)
[2025-03-01] MEDS: Potassium Chloride Liquid 20 MEQ PKT PO (07:59)
[2025-03-01 11:01] VITALS: BP 104/78; PULSE 63; RESP 16; TEMP 36.9; O2SAT 94
--- NOTE | 2025-03-01 11:30 | DI.US_ITS ---
APPROVED REPORT EXAM: Comprehensive 2D, Doppler, and color-flow Echocardiogram Patient Location: In-Patient Director Supply Chain: Goyo Verdin RDCS (AE) Indications: New onset a flutter Conclusion Left ventricular wall thickness and chamber size appear normal. Ejection fraction is approximately 5 0%. There is paradoxic septal motion. There are no segmental wall motion abnormalities Severely dilated right ventricle, global hypokinesis Right atrium is severely enlarged. Left atrium is mildly enlarged There are no structural valvular abnormalities Trace aortic regurgitation There is at least moderate tricuspid regurgitation Wall motion Left Ventricle The left ventricle is normal size. Overall left ventricular systolic function appears within the rang e of normal There is normal left ventricular wall thickness. Septal motion is paradoxic. There are no segmental wall motion abnormalities There is no ventricular septal defect visualized. LVEF is 50 %. Right Ventricle Right ventricle is severely dilated. Right ventricle is hypokinetic. Atria Left atrium is mildly dilated. Right atrium is severely dilated. The interatrial septum is intact wit h no evidence for an atrial septal defect. Aortic Valve The aortic valve is normal in structure. Aortic valve is trileaflet. There is no aortic valvular sten osis. Trace aortic regurgitation. Mitral Valve The mitral valve is normal in structure. No evidence of mitral valve stenosis. Trace mitral regurgita tion. Tricuspid Valve The tricuspid valve is normal in structure. There is no tricuspid valve stenosis. Moderate tricuspid regurgitation. The RVSP is 13.5 mmHg. RVSP may be underestimated by Doppler of TR jet. Pulmonic Valve The pulmonary valve is normal in structure. There is no pulmonic valvular stenosis. There is no pulmo asya valvular regurgitation. Great Vessels The aortic root is normal in size. The ascending aorta is normal in size. Aortic arch is not well vis ualized. IVC is normal in size and collapses >50% with inspiration. Pericardium There is no pericardial effusion. 2D Dimensions IVSD d PLAX 1.13 cm M: 0.6-1.2 Ao Root d 3.88 cm M: 3.1 - 3.7 LVPW d PLAX 1.06 cm M: 0.6 - 1.2 Ao Asc Diam d 3.16 cm M: 2.6 - 3.4 LVID d PLAX 4.80 cm M: 4.2 - 5.8 LVDs 3.99 cm M: 2.5 - 4.0 LV EF Teichholz 35.2 % FS 16.84 % LV EDV (Teich) 107.7 mL LV ESV (Teich) 69.8 mL Stroke Vol Index (Teich) 14.47 M-Mode TAPSE 1.24 cm (M/F) >1.7 LV Volumes - Method of Disks (Huff's) Single Plane 2D LV Volumes Biplane 2D LV Volumes LV EDV A4C 98.8 mL LV EDV BP 100.58 mL M: 62 - 150 LV ESV A4C 61.1 mL LV ESV BP 63.7 mL LVEF(%) A4C 38.2 % LVEF(%) BP 36.69 % M: 52 - 72 LV EDV A2C 95.3 mL LV EDV BP Index 38.24 mL/m2 M: 34 - 74 LV ESV A2C 62.6 mL SV BP LVEF(%) A2C 34.3 % SV Index LA Volume LA Length A4C 6.4 cm LA Length A2C LA Area A4C s 21.04 cm2 LA Area A2C s LA Vol A4C A-L 58.37 mL LA Vol A2C A-L LA Vol Biplane A-L LA Vol A4C MOD 56.2 mL LA Vol A2C MOD LA Vol BP MOD RA Volume RA Area A4C 31.0 cm2 RA ESV A4C (A-L) 117.2mL RA Vol/BSA A4C A-L RA Length A4C 6.9 cm RA ESV A4C (MOD) 114.1mL LV Diastology MV E' medial 0.101 (>0.07 m/s) MV E Vmax 0.72 (0.4-1.3 m/s) MV E/E' MED 7.18 (<14) MV A Vmax 0.45 (0.4-1.3 m/s) MV E' lateral 0.192 (>0.1 m/s) E/A Ratio 1.6 MV E/E' LAT 3.77 (<14) MV E' Average 0.146 m/s MV E/E'(average) 4.94 Aortic Valve AoV Vmax 0.81 m/s LVOT Vmax 0.64 m/s AoV Peak Grad 2.6 mmHg LVOT Peak Grad 1.6 mmHg AoV Area (Vmax) 4.27 cm2 LVOT VTI 0.113 m AoV VTI 0.155 m LVOT Mean Grad 1.0 mmHg AoV Mean Raul. 0.58 m/s LVOT SV 61.48 mL AoV Mean Grad 1.5 mmHg LVOT Diam s 2.60 cm AoV Area (VTI) 3.96 cm2 AV Regurg Peak Gr. 2.63 mmHg Velocity Ratio 0.79 Mitral Valve MV DT 123 (160-240 msec) Pulmonary Valve PV Vmax 1.76 (0.5-1.5 m/s) RVOT Vmax 0.57 m/s PV Peak Grad 12.3 mmHg RVOT Peak Gr. 1.3 mmHg PV Mean Raul 1.13 m/s RVOT VTI 0.135 m PV Mean Grad 6.0 mmHg RVOT Mean Gr. 0.9 mmHg Tricuspid Valve RA Pressure 3.00 mmHg TR Vmax 1.62 m/s TR Peak Grad 10.5 mmHg RVSP (TR) 13.5 mmHg
--- NOTE | 2025-03-01 11:53 | CHAPLAIN ---
Moises was sitting up at the edge of the bed when I visited. He was receiving a chemo infusion yesterday at the [facility] in [facility] when he was transferred her because of an artial flutter. He has metastasized cancer. Moises explained that he is from [place] and was sent here from his chemo treatment. Last month he also ended up here from his chemo treatment, he said. Moises said he didn't get much rest last night as he was woken up to have his vital checks. He is looking forward to getting home later today to rest. He had a friend/family member with him.
--- NOTE | 2025-03-01 12:51 | NUR.NOTE ---
patient AxOx4 this shift, VSS, still in aflutter on tele but rate controlled, denies pain, tolerating PO intake, recent BM and voiding spontaneously, receiving IVF for hydration, echo completed and pending results, pt given education on aflutter arrhythmia and metoprolol. Independent in room, family at bedside, denies needs. Nursing Note:
--- NOTE | 2025-03-01 12:55 | PDOC.CMIN ---
Date of service: 03/01/25 Time of Service: 12:55 Care Management Initial Assmt Initial Assessment Reason for Hospitalization: aflutter with rapid ventricular response Functional Status/Living Situation Patient Presentation: Moises presented to the ED yesterday [facility] from the [facility] after he was found to have a very high heart rate. He was sent to the ER with IVF running, and was noted to have a HR in the 120s. 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 Moises was very pleasant with CM today. His Dad, Deondre, was also present. Moises stated that he is ready to go home today, and would be happy to attend any f/u recommended. 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 Care Team Visit Care Team Role Provider Type Tre Gonzalez MD Primary Care Provider CONSULTING PHYSICIAN MICHAEL Yang Emergency Provider [employer] Maulik Cleveland Admit Provider NON-[facility] STAFF PHYSICIAN Attending Provider Discharge Potential Discharge Needs: PCP F/U Appt and Other (possible cardiology referral) Anticipated Barriers to Discharge: None Identified Patient/Family Education Needs: Review discharge instructions, discuss Ask Me Three Transportation: Private vehicle (with Deondre) Plan: Moises was discharged home this afternoon with no new services. He will f/u with his PCP and with the oncology clinic. Moises was transported home by his Dad. Social Determinants of Health Screening Social Determinants of health last assessed in clinic: 03/01/25 Will the Patient Participate in the Screening?: Yes Do you worry about having a steady place to live?: no Problems where you live: no known problems In the past 12 months, have you had to go without electric, gas, oil or water in your home?: no 1. Within the past 12 months, we worried whether our food would run out before we got money to buy more.: Don't know/refused 2. Within the past 12 months, the food we bought just didn't last and we didn't have money to get more.: Don't know/refused Has lack of transportation kept you from medical appointments or from doing things needed for daily living?: no Has anyone in your life made you feel unsafe or unsupported?: no How hard is it for you to pay for the very basics like food, housing, medical care, and heating? 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
--- NOTE | 2025-03-01 13:05 | W.PM.DS.N ---
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: Status: Chronic (4) Hypokalemia due to excessive gastrointestinal loss of potassium: Status: Chronic (5) CKD (chronic kidney disease): Status: Chronic (6) GERD (gastroesophageal reflux disease): Status: Chronic (7) Anxiety disorder: Status: Chronic (8) B12 deficiency: Status: Chronic Discharge Plan Disposition Patient Disposition: Home Condition: Improving Discharge Details Reason For Visit: Atrial flutter with rapid ventricular response, CK Admit Date/Time: 02/28/25 19:07 Admit Provider: Maulik Cleveland Attending Provider: Maulik Cleveland Primary Care Provider: Tre Gonzalez Hospital Course Hospital Course: This is a 49-year-old male patient with metastatic carcinoid tumor of the liver currently on apixaban for pulmonary embolism who was referred to the emergency department from the oncology clinic for tachycardia. He had a similar presentation about a month ago associated with dehydration. this workup did reveal he was placed on metoprolol. His heart rate new onset of atrial fibrillation. Improved with IV fluids initially and has remained controlled on 12.5 Metroprolol tartrate 4 times daily. He underwent an echocardiogram which did show an EF 50% with moderate tricuspid regurg and severely dilated right ventricle which is hypokinetic. Troponin remained negative and EKG nonischemic. He had no reports of chest pain. He is medically stable and was no complaints he is to be discharged to home and will be placed on metoprolol succinate 50 mg daily. He should continue his apixaban. He will follow-up outpatient with his primary care provider and oncologist return sooner for new or worsening symptoms Discussed with Dr. Boss Salyer Meds and New Rx's Prescriptions: New metoprolol succinate 50 mg tablet extended release 24 hr 50 mg PO DAILY Qty: 30 0RF Continued acetaminophen 500 mg tablet 1,000 mg PO Q6H PRN apixaban 5 mg tablet 5 mg PO BID cyanocobalamin (vitamin B-12) 1,000 mcg/mL solution 1,000 mcg IM QMONTH lorazepam 1 mg tablet 1 mg PO Q6H PRN omeprazole 20 mg capsule,delayed release(DR/EC) 20 mg PO DAILY potassium chloride 20 mEq packet 20 meq PO DAILY prochlorperazine maleate 10 mg tablet 10 mg PO Q6H PRN Discharge Instructions Instructions: Atrial Fibrillation (DC) Additional Instructions: take medications as prescribed drink 6-8 glasses of fluid or more to stay well hydrated routine follow up with your outpatient doctor. Referrals: Tre Gonzalez MD [Primary Care Provider] - Activity:: Activity as Tolerated Equipment/Supplies:: No Equipment Needed Diet:: As Tolerated Discharge Orders Discharge Orders: Discharge Order (Routine); Ordered 03/01/25 Ordered By: Linda Fairchild DS: Summary Time Spent with Patient providing and/or coordinating discharge services: Greater than 30 minutes Status at Discharge Functional status at discharge: independent ambulation Overall status at discharge: patient is back to baseline Mental Status: mental status grossly normal Speech and Movement: speech and movement normal Mood: congruent mood Affect: normal affect Quality:SDOH Health Related Social Needs: No Data to Display Exam Narrative Exam Narrative: White male appearing older than stated age no acute distress head is atraumatic eyes nonicteric noninjected oral mucosas moist neck full range of motion no JVD cardiovascular regular rate and rhythm did not any murmurs respirations even and unlabored breath sounds clear bilaterally abdomen soft nontender moves extremities equally no peripheral edema neurologic he is awake alert oriented psychiatric appropriate mood and affect Psych Mental Status: mental status grossly normal Speech and Movement: speech and movement normal Mood: congruent mood Affect: normal affect DS: Data Vitals/I&O Vitals and I&O: Vital Signs Temperature 36.9 C 03/01/25 11:01 Temperature Source Temporal Artery Scan 03/01/25 11:01 Pulse 63 03/01/25 11:01 Pulse Rhythm Irregular 02/28/25 21:16 Pulse 90 02/28/25 20:20 Respiratory Rate 16 03/01/25 11:01 Respiratory Effort Normal, Non-Labored 02/28/25 21:16 Respiratory Depth Normal 02/28/25 21:16 Respiratory Pattern Normal 02/28/25 21:16 Blood Pressure 104/78 03/01/25 11:01 Blood Pressure Mean 86 03/01/25 11:01 Pulse Oximetry 94 03/01/25 11:01 Oxygen Delivery Method Room Air 03/01/25 11:01 Oxygen Flow Rate 0 03/01/25 11:01 Pain Level 0 03/01/25 11:01 Intake & Output 02/28/25 03/01/25 03/01/25 23:59 11:59 23:59 Intake Total 2610 / 2850 240 / 2850 Output Total 650 / 650 Balance 1959 / 2199 240 / 2200 Weight 135.171 kg 137.3 kg Intake: IV 2069 Oral 540 / 780 240 / 780 Output: Urine 650 / 650 Other: Urine Color Yellow Urine Appearance Clear Data Completed and Pending Labs on day of discharge: Labs from last 24 hours 03/01/25 06:48: WBC 3.96 L, RBC 4.24 L, Hgb 13.3 L, Hct 40.0, MCV 94, MCH 31.4, MCHC 33.3, RDW 15.9 H, Plt Count 56 L, MPV 12.2 H, Sodium 140, Potassium 4.2, Chloride 106, Carbon Dioxide 25.1, Anion Gap 8.9, BUN 14, Creatinine 1.5 H, Est GFR (CKD-EPI 2020) 56.02, Glucose 93, Calcium 8.9, Magnesium 2.2, Total Bilirubin 3.8 H, AST 20, ALT 13 L, Alkaline Phosphatase 138 H, Total Protein 7.6, Albumin 3.7 02/28/25 22:40: Urine Color Cancelled, Urine Clarity Cancelled, Urine pH Cancelled, Ur Specific [place] Cancelled, Urine Protein Cancelled, Urine Ketones Cancelled, Urine Blood Cancelled, Urine Nitrite Cancelled, Urine Bilirubin Cancelled, Urine Urobilinogen Cancelled, Ur Leukocyte Esterase Cancelled, Urine Glucose Cancelled 02/28/25 21:38: PT 12.9 H, INR 1.3 H 02/28/25 20:05: COVID-19 Source Nasopharynx, SARS-CoV-2 (PCR) Negative, Influenza Type A (PCR) Negative, Influenza Type B (PCR) Negative, RSV (PCR) Negative 02/28/25 18:15: Troponin I 7, NT-Pro-B Natriuret Pep 364 H, Free T4 1.19 02/28/25 17:58: Urine Color Yellow, Urine Clarity Clear, Urine pH 5.5, Ur Specific [place] 1.015, Urine Protein Negative, Urine Ketones Negative, Urine Blood Small H, Urine Nitrite Negative, Urine Bilirubin Negative, Urine Urobilinogen 4.0 H, Ur Leukocyte Esterase Negative, Urine RBC 0-2, Urine WBC 0-2, Ur Epithelial Cells Rare, Urine Crystals Negative, Urine Bacteria Negative, Urine Casts Negative, Urine Mucus Negative, Ur Culture Indicated? No, Urine Glucose Negative 02/28/25 17:15: WBC 4.68, RBC 4.35 L, Hgb 13.6, Hct 40.3, MCV 93, MCH 31.3, MCHC 33.7, RDW 15.6 H, Plt Count 57 L, MPV , Immature Gran % 0.4, Neutrophils % 71.0, Lymphocytes % 18.4, Monocytes % 9.4, Eosinophils % 0.2, Basophils % 0.6, Nucleated RBC % 0.0, Absolute Neutrophils 3.32, Absolute Lymphocytes 0.86 L, Absolute Monocytes 0.44, Absolute Eosinophils 0.01, Absolute Basophils 0.03, RBC Morphology Normal, D-Dimer 696 H, VBG Lactate 1.3, Sodium 138, Potassium 4.1, Chloride 104, Carbon Dioxide 21.9, Anion Gap 12.1 H, BUN 17, Creatinine 1.5 H, Est GFR (CKD-EPI 2020) 56.02, Glucose 120 H, Calcium 8.9, Magnesium 1.8, Total Bilirubin 3.8 H, AST 18, ALT 12 L, Alkaline Phosphatase 140 H, Troponin I 6, Total Protein 7.9, Albumin 3.8, Lipase 52, TSH 5.40 H 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) Pulmonary embolism (Chronic) Hypokalemia due to excessive gastrointestinal loss of potassium (Chronic) B12 deficiency (Chronic) Anxiety disorder (Chronic) GERD (gastroesophageal reflux disease) (Chronic) Atrial flutter with rapid ventricular response (Acute) CKD (chronic kidney disease) (Chronic) Dehydration (Acute) Tachycardia (Acute) Social History Smoking/Tobacco Use Status: Never Smoking risk assessment performed?: Yes Alcohol Intake: never Housing: house Do you feel safe at home: Yes Do you feel safe in your relationship?: Yes Time Spent with Patient Time Spent with Patient: 45-69 minutes Time was spent: preparing to see the patient(eg.review tests), obtaining and/or reviewing separately [facility], ordering medications,tests, procedures, indepentently interpreting results and counseling the patient
--- NOTE | 2025-03-01 13:47 | NUR.NOTE ---
patient discharged, left with father by POV, ambulated out of hospital, PIV removed, given d/c instructions including f/u appointment with oncology, echo results discussed with Linda Fairchild PORTAL ARCHITECT, prescriptions for metoprolol and education on both metoprolol and aflutter. Pt educated on when to report s/s and side effects of medication. Patient verbalized understanding of education and denies concerns or questions. Nursing Note:
== END 2025-03-01 13:39 | disposition home or self-care (01) ==
LOC: ER 19:12 → MS 03-01 09:05
PROVIDERS: Admitting Provider Family Medicine; Emergency Provider Physician Assistant; PCP Internal Medicine Hematology & Oncology; Visit Provider Family Medicine
DX: I48.92 Unspecified atrial flutter (principal); I27.82 Chronic pulmonary embolism; C7B.03 Secondary carcinoid tumors of bone; I07.1 Rheumatic tricuspid insufficiency; C7B.02 Secondary carcinoid tumors of liver; E87.6 Hypokalemia; N18.9 Chronic kidney disease, unspecified; K21.9 Gastro-esophageal reflux disease without esophagitis; R01.1 Cardiac murmur, unspecified; F41.8 Other specified anxiety disorders; E53.8 Deficiency of other specified B group vitamins; Z79.01 Long term (current) use of anticoagulants; Z79.899 Other long term (current) drug therapy; D69.6 Thrombocytopenia, unspecified; R79.1 Abnormal coagulation profile; C7A.029 Malignant carcinoid tumor of the large intestine, unspecified portion; E66.01 Morbid (severe) obesity due to excess calories; Z68.36 Body mass index [BMI] 36.0-36.9, adult
CPT/HCPCS: 00123; 36415; 80053; 83690; 85027; 87637; 93005; 93306; 96361; 96365; 96366; 99285; 71046; 81003; 81015; 83605; 83735; 83880; 84439; 84443; 84484; 85025; 85379; 85610; 86316; 93010; 99223; 99239; G0378; J3475; J3490

== ENCOUNTER 2025-03-28 13:59 | Outpatient (CLI) | payer MEDICARE, MEDICAID, SELFPAY ==
[2025-03-28 13:40] LABS: Abs Immature Grans 0.01 10^3/uL (0.0-0.06); Absolute Basophil Count 0.04 10^3/uL (0.0-0.2); Absolute Eosinophil Count 0.08 10^3/uL (0.0-0.7); Absolute Lymphocyte Count 1.15 10^3/uL (1.2-3.4); Absolute Monocyte Count 0.44 10^3/uL (0.1-0.8); Absolute Neutrophil Count 3.18 10^3/uL (1.2-6.7); Basophils % 0.8 %; Eosinophils % 1.6 %; HCT 45.2 % (40.0-50.0); Immature Grans % 0.2 %; Lymphocytes % 23.5 %; MCH 30.9 pg (27.0-33.0); MCHC 33.2 % (32.0-36.0); MCV 93 fL (80-95); MPV 12.3 fL (8.0-11.0); Neutrophils % 64.9 %; RBC 4.86 10^6/uL (4.36-5.78); RDW 15.8 % (11.8-14.1); RDW-SD 53.8 fL
[2025-03-28 13:54] LABS: Diff Comment PLT Morph Reviewed; Platelet Count 92 10^3/uL (130-400); RBC Morphology Normal
[2025-03-28 14:42] LABS: ALT 14 U/L (16-63); AST 21 U/L (15-37); Albumin 4.2 g/dL (3.4-5.0); Alkaline Phosphatase 176 U/L (46-116); Anion Gap 10.5 mmol/L (3-11); BUN 20 mg/dL (7-18); Bilirubin, Total 2.5 mg/dL (0.2-1.0); CO2 26.5 mmol/L (21.0-32.0); CREATININE 1.6 mg/dL (0.70-1.30); Calcium 9.5 mg/dL (8.5-10.1); Chloride 101 mmol/L (98-107); Estimated GFR 51.84 (mL/min/1.73m2); Glucose 100 mg/dL (74-106); Potassium 4.4 mmol/L (3.5-5.1); Sodium 138 mmol/L (136-145); Total Protein 9.1 g/dL (6.4-8.2)
[2025-03-30 12:07] LABS: Chromogranin A 453 ng/mL (<93)
== END 2025-03-28 14:00 | disposition home or self-care (01) ==
LOC: LBO 14:00
PROVIDERS: PCP Family Medicine; Visit Provider Internal Medicine Hematology & Oncology
DX: C7B.02 Secondary carcinoid tumors of liver (principal)
CPT/HCPCS: 36415; 80053; 85025; 86316

== ENCOUNTER 2025-04-25 01:00 | Outpatient (CLI) | payer MEDICARE, MEDICAID, SELFPAY ==
[2025-04-25 13:36] LABS: Abs Immature Grans 0.01 10^3/uL (0.0-0.06); Absolute Basophil Count 0.04 10^3/uL (0.0-0.2); Absolute Lymphocyte Count 1.13 10^3/uL (1.2-3.4); Absolute Neutrophil Count 3.64 10^3/uL (1.2-6.7); Basophils % 0.7 %; Eosinophils % 1.8 %; HCT 41.8 % (40.0-50.0); HGB 14.2 g/dL (13.5-17.5); Immature Grans % 0.2 %; Lymphocytes % 20.8 %; MCH 31.3 pg (27.0-33.0); MCV 92 fL (80-95); MPV 12.3 fL (8.0-11.0); Monocytes % 9.2 %; Neutrophils % 67.3 %; RBC 4.53 10^6/uL (4.36-5.78); RDW 15.5 % (11.8-14.1); WBC 5.42 10^3/uL (4.4-10.8)
[2025-04-25 14:00] LABS: ALT 17 U/L (16-63); AST 19 U/L (15-37); Alkaline Phosphatase 149 U/L (46-116); Anion Gap 9.5 mmol/L (3-11); BUN 18 mg/dL (7-18); Bilirubin, Total 2.2 mg/dL (0.2-1.0); CO2 24.5 mmol/L (21.0-32.0); CREATININE 1.6 mg/dL (0.70-1.30); Calcium 8.9 mg/dL (8.5-10.1); Chloride 102 mmol/L (98-107); Estimated GFR 51.52 (mL/min/1.73m2); Glucose 98 mg/dL (74-106); Potassium 4.3 mmol/L (3.5-5.1); Sodium 136 mmol/L (136-145); Total Protein 8.3 g/dL (6.4-8.2)
[2025-04-25 14:02] LABS: Platelet Count 79 10^3/uL (130-400)
[2025-04-27 13:16] LABS: Chromogranin A 430 ng/mL (<93)
== END 2025-04-25 01:01 | disposition home or self-care (01) ==
LOC: LBO 01:01
PROVIDERS: PCP Family Medicine; Visit Provider Internal Medicine Hematology & Oncology
DX: C7B.02 Secondary carcinoid tumors of liver (principal)
CPT/HCPCS: 36415; 80053; 85025; 86316

== ENCOUNTER 2025-05-23 12:45 | Outpatient (CLI) | payer MEDICARE, MEDICAID, SELFPAY ==
[2025-05-23 12:28] LABS: Abs Immature Grans 0.03 10^3/uL (0.0-0.06); HCT 45.0 % (40.0-50.0); HGB 15.0 g/dL (13.5-17.5); Immature Grans % 0.5 %; MCH 30.4 pg (27.0-33.0); MCHC 33.3 % (32.0-36.0); MCV 91 fL (80-95); MPV 12.9 fL (8.0-11.0); Platelet Count 100 10^3/uL (130-400); RBC 4.93 10^6/uL (4.36-5.78); RDW 14.7 % (11.8-14.1); RDW-SD 49.7 fL; WBC 6.45 10^3/uL (4.4-10.8)
[2025-05-23 13:09] LABS: ALT 18 U/L (16-63); AST 25 U/L (15-37); Albumin 4.1 g/dL (3.4-5.0); Alkaline Phosphatase 157 U/L (46-116); Anion Gap 10.0 mmol/L (3-11); BUN 16 mg/dL (7-18); Bilirubin, Total 2.0 mg/dL (0.2-1.0); CO2 25.0 mmol/L (21.0-32.0); Calcium 9.1 mg/dL (8.5-10.1); Chloride 102 mmol/L (98-107); Estimated GFR 51.52 (mL/min/1.73m2); Glucose 101 mg/dL (74-106); Potassium 4.0 mmol/L (3.5-5.1); Sodium 137 mmol/L (136-145); Total Protein 8.7 g/dL (6.4-8.2)
== END 2025-05-23 12:46 | disposition home or self-care (01) ==
LOC: LBO 12:46
PROVIDERS: PCP Family Medicine; Visit Provider Internal Medicine Hematology & Oncology
DX: C7B.02 Secondary carcinoid tumors of liver (principal)
CPT/HCPCS: 36415; 80053; 85025; 86316

== ENCOUNTER 2025-06-20 00:56 | Outpatient (CLI) | payer MEDICARE, SELFPAY ==
[2025-06-20 09:20] LABS: Abs Immature Grans 0.02 10^3/uL (0.0-0.06); HCT 41.9 % (40.0-50.0); HGB 14.0 g/dL (13.5-17.5); Immature Grans % 0.4 %; MCH 31.1 pg (27.0-33.0); MCHC 33.4 % (32.0-36.0); MCV 93 fL (80-95); MPV 12.9 fL (8.0-11.0); RBC 4.50 10^6/uL (4.36-5.78); RDW 15.2 % (11.8-14.1); RDW-SD 52.3 fL; WBC 5.16 10^3/uL (4.4-10.8)
[2025-06-20 09:44] LABS: Platelet Count 79 10^3/uL (130-400); RBC Morphology Normal
[2025-06-20 09:48] LABS: ALT 14 U/L (16-63); AST 19 U/L (15-37); Albumin 4.0 g/dL (3.4-5.0); Alkaline Phosphatase 134 U/L (46-116); Anion Gap 7.6 mmol/L (3-11); BUN 16 mg/dL (7-18); Bilirubin, Total 1.8 mg/dL (0.2-1.0); CO2 27.4 mmol/L (21.0-32.0); Calcium 9.2 mg/dL (8.5-10.1); Chloride 105 mmol/L (98-107); Estimated GFR 55.67 (mL/min/1.73m2); Glucose 80 mg/dL (74-106); Potassium 4.1 mmol/L (3.5-5.1); Sodium 140 mmol/L (136-145); Total Protein 8.2 g/dL (6.4-8.2)
== END 2025-06-20 00:57 | disposition home or self-care (01) ==
LOC: LBO 00:56
PROVIDERS: PCP Family Medicine; Visit Provider Internal Medicine Hematology & Oncology
DX: C7B.02 Secondary carcinoid tumors of liver (principal)
CPT/HCPCS: 36415; 80053; 85025; 86316

== ENCOUNTER 2025-07-18 04:22 | Outpatient (CLI) | payer MEDICARE, SELFPAY ==
[2025-07-18 13:33] LABS: Abs Immature Grans 0.03 10^3/uL (0.0-0.06); HCT 42.7 % (40.0-50.0); HGB 14.5 g/dL (13.5-17.5); Immature Grans % 0.5 %; MCH 31.3 pg (27.0-33.0); MCHC 34.0 % (32.0-36.0); MCV 92 fL (80-95); MPV 12.5 fL (8.0-11.0); RBC 4.64 10^6/uL (4.36-5.78); RDW 14.8 % (11.8-14.1); RDW-SD 50.4 fL; WBC 5.54 10^3/uL (4.4-10.8)
[2025-07-18 13:53] LABS: ALT 19 U/L (16-63); AST 24 U/L (15-37); Albumin 4.0 g/dL (3.4-5.0); Alkaline Phosphatase 146 U/L (46-116); Anion Gap 10.3 mmol/L (3-11); BUN 17 mg/dL (7-18); Bilirubin, Total 1.5 mg/dL (0.2-1.0); CO2 25.7 mmol/L (21.0-32.0); Calcium 8.8 mg/dL (8.5-10.1); Chloride 105 mmol/L (98-107); Estimated GFR 60.47 (mL/min/1.73m2); Glucose 97 mg/dL (74-106); Potassium 3.8 mmol/L (3.5-5.1); Sodium 141 mmol/L (136-145); Total Protein 8.4 g/dL (6.4-8.2)
[2025-07-18 14:00] LABS: Platelet Count 84 10^3/uL (130-400); RBC Morphology Normal
== END 2025-07-18 04:23 | disposition home or self-care (01) ==
LOC: LBO 04:22
PROVIDERS: PCP Family Medicine; Visit Provider Internal Medicine Hematology & Oncology
DX: C7B.02 Secondary carcinoid tumors of liver (principal)
CPT/HCPCS: 36415; 80053; 85025; 86316

== ENCOUNTER 2025-09-12 13:53 | Outpatient (CLI) | payer MEDICARE, SELFPAY ==
[2025-09-12 14:38] LABS: Abs Immature Grans 0.02 10^3/uL (0.0-0.06); HCT 43.4 % (40.0-50.0); HGB 14.8 g/dL (13.5-17.5); Immature Grans % 0.3 %; MCH 30.9 pg (27.0-33.0); MCHC 34.1 % (32.0-36.0); MCV 91 fL (80-95); MPV 12.9 fL (8.0-11.0); RBC 4.79 10^6/uL (4.36-5.78); RDW 14.0 % (11.8-14.1); RDW-SD 47.3 fL; WBC 6.11 10^3/uL (4.4-10.8)
[2025-09-12 14:42] LABS: Platelet Count 85 10^3/uL (130-400)
[2025-09-12 14:48] LABS: ALT 10 U/L (10-49); AST 22 U/L (<34); Albumin 4.5 g/dL (3.4-5.0); Alkaline Phosphatase 129 U/L (46-116); Anion Gap 10.9 mmol/L (3-11); BUN 18 mg/dL (9-23); Bilirubin, Total 1.70 mg/dL (0.2-1.2); CO2 22.1 mmol/L (20.0-31.0); Calcium 9.1 mg/dL (8.3-10.6); Chloride 105 mmol/L (98-107); Glucose 103 mg/dL (74-106); Potassium 4.0 mmol/L (3.5-5.1); Sodium 138 mmol/L (136-145); Total Protein 8.4 g/dL (5.7-8.2)
== END 2025-09-12 13:54 | disposition home or self-care (01) ==
PROVIDERS: PCP Family Medicine; Visit Provider Nurse Practitioner Family
DX: C7B.02 Secondary carcinoid tumors of liver (principal)
CPT/HCPCS: 36415; 80053; 85025; 86316

== ENCOUNTER 2025-10-10 01:35 | Outpatient (CLI) | payer MEDICARE, SELFPAY ==
[2025-10-10 12:55] LABS: Abs Immature Grans 0.02 10^3/uL (0.0-0.06); HCT 42.2 % (40.0-50.0); HGB 14.2 g/dL (13.5-17.5); Immature Grans % 0.3 %; MCH 31.2 pg (27.0-33.0); MCHC 33.6 % (32.0-36.0); MCV 93 fL (80-95); MPV 11.9 fL (8.0-11.0); RBC 4.55 10^6/uL (4.36-5.78); RDW 14.7 % (11.8-14.1); RDW-SD 50.7 fL; WBC 5.95 10^3/uL (4.4-10.8)
[2025-10-10 13:11] LABS: ALT 9 U/L (10-49); AST 20 U/L (<34); Albumin 4.4 g/dL (3.2-5.0); Alkaline Phosphatase 122 U/L (46-116); Anion Gap 8 mmol/L (3-11); BUN 12 mg/dL (9-23); Bilirubin, Total 1.6 mg/dL (0.2-1.2); CO2 26.0 mmol/L (20.0-31.0); Calcium 8.9 mg/dL (8.3-10.6); Chloride 106 mmol/L (98-107); Glucose 96 mg/dL (74-106); Potassium 4.2 mmol/L (3.5-5.1); Sodium 140 mmol/L (136-145); Total Protein 8.2 g/dL (5.7-8.2)
[2025-10-10 13:16] LABS: Platelet Count 76 10^3/uL (130-400); RBC Morphology Normal
== END 2025-10-10 01:36 | disposition home or self-care (01) ==
LOC: LBO 01:35
PROVIDERS: PCP Family Medicine; Visit Provider Nurse Practitioner Family
DX: C7B.02 Secondary carcinoid tumors of liver (principal)
CPT/HCPCS: 36415; 80053; 85025; 86316